=== PATIENT | female | born 1935 | race Caucasian/White ===

== ENCOUNTER 2017-10-14 08:01 | Day surgery (SDC) | payer MEDICARE, BC ==
--- NOTE | 2017-09-29 19:53 | HP ---
DATE OF ADMISSION: 10/14/2017 HISTORY OF PRESENT ILLNESS: This is the first orthopedic outpatient admission for surgery for this 82-year- old female who is being admitted with [id number] carpal tunnel syndrome of the right wrist. The patient has had a failed treatment with continued pain in the wrist, especially at nighttime, that disturbs her sleep. She has positive numbness and tingling and weakness of cat breeder of the right upper extremity. The patient is now being scheduled for right carpal tunnel release. Procedure has been outlined to her. She understands and has consented to it. ALLERGIES: Latex, erythromycin. CURRENT MEDICATIONS: Include thyroid, potassium, hydrochlorothiazide, Nexium, Zocor, meloxicam, and losartan. MEDICAL PROBLEMS: Include decreased thyroid function, increased cholesterol, high blood pressure, and heartburn. PAST SURGICAL HISTORY: Positive. She has had previous surgery. She notes no complications from anesthesia. The patient has a negative bleeding history. She has a positive blood clot history in the past, years ago. HABITS: Smoking history, she quit in 1977. Alcohol use, she says does not drink at this point. PHYSICAL EXAMINATION: GENERAL: Today reveals a well-developed, well-nourished 82-year-old female in moderate distress. HEAD, EYES, EARS, NOSE, AND THROAT: Normocephalic. NECK: Supple. CHEST: Clear, with asthma history. ABDOMEN: Soft. GENITOURINARY: Intact. EXTREMITIES: Examination of right wrist reveals positive pain on direct pressure of the carpal tunnel area. Severe Tinel examination noted. Positive thenar atrophy. DATA: Nerve conduction evaluation dated 09/08/2017, positive for [id number] carpal tunnel compressive neuropathy. ASSESSMENT: Overall impression is severe carpal tunnel syndrome, right wrist; failed treatment. PLAN: For the patient to undergo surgical treatment. Procedure has been outlined to her. She understands procedure, has consented to it. MMODAL /[id number] MTDD
[~2017-10-14 08:01] MED LIST: Lactated Ringers 1,000 ML IV SCH; Lidocaine 0.5% 50 ML SDV ONE; Lidocaine 1%/Sod Bicarbonate in NS 8.4% 1 ML Syringe IDERM PRN; Propofol 200 MG/20 ML SDV ONE; Sodium Bicarbonate 8.4% 50 MEQ/50 ML SDV ONE; Sodium Chloride 0.9% 10 ML Syringe FLUSH PRN; fentaNYL 100 MCG/2 ML SDV ONE
--- NOTE | 2017-10-14 08:28 | PCM.PREANE ---
Preanesthetic Assessment - Anesthesia/Transfusion/Family Hx Anesthesia History: Prior Anesthesia Without Reaction Family History of Anesthesia Reaction: No Transfusion History: No Prior Transfusion(s) - Review of Systems General: No Symptoms Pulmonary: No Symptoms Cardiovascular: No Symptoms Gastrointestinal: No Symptoms Neurological: Numbness (right hand) Other: Reports: Thyroid Problems - Physical Assessment NPO Status Date: 10/13/17 NPO Status Time: 00:00 Pulse: 62 O2 Sat by Pulse Oximetry: 98 Respiratory Rate: 16 Blood Pressure: 155/60 Temperature: 36.2 C Height: 1.55 m Weight: 68.719 kg ASA Class: 2 Mental Status: Alert & Oriented x3 Airway Class: Mallampati = 1 Dentition: Reports: Dentures, Partial, Caries Thyro-Mental Finger Breadths: 3 Mouth Opening Finger Breadths: 3 ROM/Head Extension: Full Lungs: Clear to Auscultation, Normal Respiratory Effort Cardiovascular: Regular Rate, Regular Rhythm, No Murmurs - Allergies Allergies/Adverse Reactions: Allergies Allergy/AdvReac Type Severity Reaction Status Date / Time azithromycin Allergy Hives Verified 10/13/17 10:33 latex Allergy Rash Verified 10/13/17 10:33 sulfanilamide Allergy Cannot Verified 10/13/17 10:33 Remember zuclopenthixol Allergy Cannot Verified 10/13/17 10:33 Remember erythromycin lactobionate AdvReac Nausea Verified 10/13/17 10:33 [From Erythrocin] - Blood Blood Available: No Product(s) Available: None - Anesthesia Plan Pre-Op Medication Ordered: None - Acknowledgements Anesthesia Type Planned: MILLA Pt an Appropriate Candidate for the Planned Anesthesia: Yes Alternatives and Risks of Anesthesia Discussed w Pt/Guardian: Yes Pt/Guardian Understands and Agrees with Anesthesia Plan: Yes PreAnesthesia Questionnaire HEENT History: Reports: Allergic Rhinitis, Cataract, Hard of Hearing, Sinusitis , Other (See Below) Other HEENT History: Cadidiasis of mouth, acute laryngitis, impacted cerumen, oral aphthae Cardiovascular History: Reports: High Cholesterol, Hypertension Respiratory History: Reports: PE, Other (See Below) Other Respiratory History: Acute respiratory infection Gastrointestinal History: Reports: Chronic Constipation, GERD Genitourinary History: Reports: Urinary Incontinence Other Genitourinary History: Hematuria, hypertonicity of bladder, overactive bladder 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: Musculoskeletal History: Reports: Other (See Below) Other Musculoskeletal History: DJD, shoulder pain, hammer toe Neurological History: Reports: Other (See Below) Other Neuro History: Spinal stenosis Psychiatric History: Reports: Other (See Below) Other Psychiatric History: Insomnia Endocrine/Metabolic History: Reports: Hypothyroidism, Osteoporosis Hematologic History: Reports: None Immunologic History: Reports: None Oncologic (Cancer) History: Reports: Colon, Other (See Below) Other Oncologic History: Malignant neoplasm of large intestine Dermatologic History: Reports: Other (See Below) Other Dermatologic History: Actinic keratosis, dermatophytosis of nail, rash, seborrheic keratosis - Past Surgical History Head Surgeries/Procedures: Reports: None HEENT Surgical History: Reports: Cataract Surgery Cardiovascular Surgical History: Reports: None Respiratory Surgical History: Reports: None GI Surgical History: Reports: Colonoscopy, Other (See Below) Other GI Surgeries/Procedures: bowel resection Female Surgical History: Reports: Hysterectomy Endocrine Surgical History: Reports: None Other Neurological Surgeries/Procedures: L4-5, S1 Laminectomy Musculoskeletal Surgical History: Reports: None Oncologic Surgical History: Reports: None Dermatological Surgical History: Reports: None - SUBSTANCE USE Smoking Status *Q: Former Smoker Second Hand Smoke Exposure: No Days Per Week of Alcohol Use: 0 Number of Drinks Per Day: 0 Total Drinks Per Week: 0 Recreational Drug Use History: No - HOME MEDS Home Medications: Home Meds Aspirin 81 mg PO DAILY 06/30/15 [History] Losartan [Cozaar] 50 mg PO DAILY 06/30/15 [History] Simvastatin [Zocor] 40 mg PO BEDTIME 06/30/15 [History] Albuterol Sulfate [Proair Respiclick] 2 puff IH Q4H PRN 10/13/17 [History] Amoxicillin/Clavulanate K [Augmentin 500-125 MG] 1 tab PO BID 10/13/17 [History] Docusate Sodium 100 mg PO BID 10/13/17 [History] Esomeprazole [NexIUM] 40 mg PO DAILY 10/13/17 [History] Fluticasone/Salmeterol [Advair 250-50 Diskus] 1 puff IH DAILY 10/13/17 [History] Hydrochlorothiazide 12.5 mg PO DAILY 10/13/17 [History] Ketoprofen, Micronized [Frotek] 1 applic TOP QID PRN 10/13/17 [History] Levothyroxine [Synthroid] 50 mcg PO DAILY 10/13/17 [History] Magnesium Oxide [Magnesium] 500 mg PO DAILY 10/13/17 [History] Meloxicam 7.5 mg PO DAILY 10/13/17 [History] Potassium Chloride 10 meq PO DAILY 10/13/17 [History] - CURRENT (IN HOUSE) MEDS Current Meds: Current Medications Lactated Ringer's (Ringers, Lactated) 1,000 mls @ 125 mls/hr IV ASDIRECTED CLARIBEL Lidocaine/Sodium Bicarbonate (Buffered Lidocaine 1% In Ns 8.4%) 0.25 ml IDERM ONETIME PRN PRN Reason: Prior to IV Start Sodium Chloride (Saline Flush) 10 ml FLUSH ASDIRECTED PRN PRN Reason: Keep Vein Open Discontinued Medications Fentanyl (Sublimaze) Confirm Administered Dose 100 mcg .ROUTE .STK-MED ONE Stop: 10/14/17 07:27 Lidocaine HCl (Xylocaine-Mpf 0.5%) Confirm Administered Dose 50 ml .ROUTE .STK- MED ONE Stop: 10/14/17 07:28 Propofol (Diprivan 20 Ml) Confirm Administered Dose 200 mg .ROUTE .STK-MED ONE Stop: 10/14/17 07:27 Sodium Bicarbonate (Sodium Bicarbonate 8.4%) Confirm Administered Dose 50 meq .ROUTE .STK-MED ONE Stop: 10/14/17 07:28
[2017-10-14] MEDS ORDERED: Acetaminophen/Codeine 300-30 MG Tab PO PRN (08:34)
[2017-10-14] MEDS ORDERED: ceFAZolin 1 GM Vial ONE (08:44)
[2017-10-14] MEDS ORDERED: Labetalol 100 MG/20 ML MDV ONE (08:58)
[2017-10-14] MEDS ORDERED: Dexamethasone 4 MG/ML 5 ML MDV ONE (09:15)
[2017-10-14] MEDS ORDERED: Ketorolac 30 MG/ML SDV IVPUSH PRN (09:39)
[2017-10-14] MEDS ORDERED: fentaNYL 250 MCG/5 ML SDV IVPUSH PRN (09:39)
--- NOTE | 2017-10-14 09:42 | PCM48HPAN ---
Post Anesthesia Note - EVALUATION WITHIN 48HRS OF ANESTHETIC Vital Signs in Normal Range: Yes Patient Participated in Evaluation: Yes Respiratory Function Stable: Yes Airway Patent: Yes Cardiovascular Function Stable: Yes Hydration Status Stable: Yes Pain Control Satisfactory: Yes (meds given) Nausea and Vomiting Control Satisfactory: Yes Mental Status Recovered: Yes Pulse Rate: 65 SaO2: 95 Resp Rate: 16 Temperature: 36.2 C Blood Pressure: 151/71 - COMMENTS/OBSERVATIONS Free Text/Narrative:: no anesthesia complications noted
[2017-10-14] MEDS ORDERED: fentaNYL 100 MCG/2 ML SDV ONE (09:51)
[2017-10-14 10:15] VITALS: BP 156/62
[2017-10-14] MEDS ORDERED: fentaNYL 100 MCG/2 ML SDV IVPUSH PRN (11:00)
--- NOTE | 2017-10-14 12:12 | OR ---
DATE OF OPERATION: 10/14/2017 SURGEON: Humble Justice MD PREOPERATIVE DIAGNOSIS: Severe carpal tunnel syndrome, right wrist, failed treatment. POSTOPERATIVE DIAGNOSIS: Severe carpal tunnel syndrome, right wrist, failed treatment. ANESTHESIA: Sedation with Linwood block. OPERATION PERFORMED: Right wrist carpal tunnel ligament release, exploration of median nerve. DESCRIPTION OF PROCEDURE: The patient was taken to the operative room in supine position, placed under a light sedation with a Linwood block anesthesia to the right upper extremity. After adequate anesthesia, the operation proceeded then with prepping and draping of the right hand and arm by standard technique and then the operation proceeded with exposure of the hand, the palmar area, and the incision was then lined up, paralleling the radial aspect of the ring finger, beginning approximately 1 cm distal to the flexion crease, extending for approximately 1-1.5 cm distally. Penetration was made through the skin and subcutaneous tissues, the palmar fascia was lightly incised to expose the carpal ligament. Once the carpal ligament was exposed, there was significant muscular tissue stretching across from the thenar to the hypothenar eminence over the top of the ligament structure area. This was lightly incised and reflected away from the main portion of the ligament. By direct visualization, the operation then proceeded with opening of the carpal ligament and doing this visually, proximally and distally. Once that was completed and this was performed, staying to the ulnar aspect of the median nerve, the operation then proceeded with completion of the release proximally to approximately 1 cm above the flexion crease using the carpal tunnel mini instrument. Once that release was completed, the median nerve could be visualized and inspected. The vasa vasorum returned quite nicely. There was significant compression at the base of the thumb, hypothenar eminence area, where a bruising of the nerve was identified and compression also was very noted with an hourglass type deformity. The operation proceeded with distal release down to the palmar fascia and into the palmar fat pad area. Once that was completed, the nerve was inspected from distal to proximal portion. No other fibrous bands were identified. The area was then thoroughly irrigated and again the compression as a result of the carpal tunnel ligament on the nerve was significant at the base of the thenar eminence. Operation proceeded with the closure of the skin using a horizontal mattress using 4-0 Prolene and then vertical mattress for reinforced 5-0 Prolene. The patient was placed in standard dressings and splint. She tolerated the whole procedure well, left the operating room in stable condition to room for recovery. ESTIMATED BLOOD LOSS: MMODAL /[id number]
== END 2017-10-14 10:40 | disposition home or self-care (01) ==
LOC: JD.SDS 08:01
PROVIDERS: ATTEND Specialist
DX: G56.01 Carpal tunnel syndrome, right upper limb (principal); I10 Essential (primary) hypertension; J45.30 Mild persistent asthma, uncomplicated; E78.00 Pure hypercholesterolemia, unspecified; K21.0 Gastro-esophageal reflux disease with esophagitis; Z87.891 Personal history of nicotine dependence; Z88.1 Allergy status to other antibiotic agents; Z91.040 Latex allergy status; Z79.899 Other long term (current) drug therapy; Z79.51 Long term (current) use of inhaled steroids
CPT/HCPCS: 64721; J0690; J1100; J1885; J3010; J7120; J2704

== ENCOUNTER 2020-04-05 11:49 | Inpatient (IN) | payer MEDICARE, BC ==
[2020-04-05] MEDS ORDERED: Dextrose 5%-0.9% NaCl 1,000 ML IV SCH (12:30)
--- NOTE | 2020-04-05 12:35 | EDM.PDOC ---
ED HPI GENERAL MEDICAL PROBLEM - General Chief Complaint: Respiratory Problem Stated Complaint: COUGH/FATIGUE/DIARRHEA Time Seen by Provider: 04/05/20 12:29 Source of Information: Reports: Patient History Limitations: Reports: No Limitations - History of Present Illness INITIAL COMMENTS - FREE TEXT/NARRATIVE: 85-year-old female presents to the ED not feeling well for the last 3 or 4 days. She is orthopneic and cannot lay flat for the last 2 nights. She is slept on the couch propped up with pillows or in her easy chair. O2 sats at the time presentation were 87%. She admits to cold sweats chills but no defined fever. Mild nasal congestion. She has maintained sense of taste and smell. Has developed a paroxysmal minimally productive cough over the last 48 hours. Diar dru stool x3 this morning. Loss of appetite. Complains of thirst and dyspnea and weakness. She lives in her own apartment. She has no known exposure to COVID-19 illness. Onset: Gradual Onset Date: 04/01/20 Duration: Day(s):, Getting Worse Location: Reports: Chest (Accessible minimally productive cough white sputum.), Generalized (Generalized weakness loss of appetite diarrhea stools), Other (Mild nasal congestion.) Quality: Reports: Other (Generalized myalgia and fatigue) Severity: Moderate Improves with: Reports: None Worsens with: Reports: Movement (Weakness made worse by movement.) Context: Denies: Activity, Exercise, Lifting, Sick Contact, Trauma, Other Associated Symptoms: Reports: Cough, cough w sputum, Diaphoresis, Fever/Chills, Loss of Appetite, Malaise, Shortness of Breath, Weakness, Other (Diarrhea started this morning x3 large volume brownish stools). Denies: No Other Symptoms, Confusion, Chest Pain (Sputum), Headaches, Nausea/Vomiting, Rash, Seizure, Syncope Treatments DEAN OF GIRLS: Reports: Other (see below) (None.) - Related Data Allergies Allergy/AdvReac Type Severity Reaction Status Date / Time azithromycin Allergy Hives Verified 04/05/20 12:03 latex Allergy Rash Verified 04/05/20 12:03 sulfanilamide Allergy Cannot Verified 04/05/20 12:03 Remember zuclopenthixol Allergy Cannot Verified 04/05/20 12:03 Remember erythromycin lactobionate AdvReac Nausea Verified 04/05/20 12:03 [From Erythrocin] Home Meds: Home Meds Aspirin 81 mg PO DAILY 06/30/15 [History] Losartan [Cozaar] 50 mg PO DAILY 06/30/15 [History] Simvastatin [Zocor] 40 mg PO BEDTIME 06/30/15 [History] Albuterol Sulfate [Proair Respiclick] 2 puff IH Q4H PRN 10/13/17 [History] Docusate Sodium 100 mg PO BID 10/13/17 [History] Esomeprazole [NexIUM] 40 mg PO DAILY 10/13/17 [History] Fluticasone Propion/Salmeterol [Advair 250-50 Diskus] 1 puff IH BID 10/13/17 [History] Levothyroxine [Synthroid] 50 mcg PO DAILY 10/13/17 [History] Meloxicam 7.5 mg PO DAILY 10/13/17 [History] Potassium Chloride 10 meq PO BID 10/13/17 [History] hydroCHLOROthiazide [Hydrochlorothiazide] 12.5 mg PO DAILY 10/13/17 [History] Diclofenac Sodium [Voltaren 1% Gel] 2 g TOP QID PRN 04/05/20 [History] Metoprolol Succinate 25 mg PO DAILY 04/05/20 [History] Multivitamin [Multivitamins] 1 cap PO DAILY 04/05/20 [History] Pregabalin 25 mg PO DAILY 04/05/20 [History] Pregabalin [Lyrica] 50 mg PO BEDTIME 04/05/20 [History] polyethylene glycoL 3350 [MiraLAX] 17 packet PO DAILY PRN 04/05/20 [History] Past Medical History HEENT History: Reports: Allergic Rhinitis, Cataract, Hard of Hearing, Sinusitis, Other (See Below) Other HEENT History: Cadidiasis of mouth, acute laryngitis, impacted cerumen, oral aphthae Cardiovascular History: Reports: High Cholesterol, Hypertension Respiratory History: Reports: PE, Other (See Below) Other Respiratory History: Acute respiratory infection Gastrointestinal History: Reports: Chronic Constipation, GERD Genitourinary History: Reports: Urinary Incontinence Other Genitourinary History: Hematuria, hypertonicity of bladder, overactive bladder 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: Reports: Musculoskeletal History: Reports: Other (See Below) Other Musculoskeletal History: DJD, shoulder pain, hammer toe Neurological History: Reports: Other (See Below) Other Neuro History: Spinal stenosis Psychiatric History: Reports: Other (See Below) Other Psychiatric History: Insomnia Endocrine/Metabolic History: Reports: Hypothyroidism, Osteoporosis Hematologic History: Reports: None Immunologic History: Reports: None Oncologic (Cancer) History: Reports: Colon, Other (See Below) Other Oncologic History: Malignant neoplasm of large intestine Dermatologic History: Reports: Other (See Below) Other Dermatologic History: Actinic keratosis, dermatophytosis of nail, rash, seborrheic keratosis - Past Surgical History HEENT Surgical History: Reports: Cataract Surgery Respiratory Surgical History: Reports: None GI Surgical History: Reports: Colonoscopy, Other (See Below) Other GI Surgeries/Procedures: bowel resection Female Surgical History: Reports: Hysterectomy Other Neurological Surgeries/Procedures: L4-5, S1 Laminectomy Dermatological Surgical History: Reports: None Social & Family History - Tobacco Use Tobacco Use Status *Q: Former Tobacco User Used Tobacco, but Quit: Yes Month/Year Tobacco Last Used: 1979 - Caffeine Use Caffeine Use: Reports: Coffee - Recreational Drug Use Recreational Drug Use: No - Living Situation & Occupation Living situation: Reports: Occupation: Retired ED ROS GENERAL - Review of Systems Review Of Systems: See Below Constitutional: Reports: Malaise, Weakness, Fatigue, Decreased Appetite. Denies: Fever, Chills HEENT: Reports: Glasses Respiratory: Reports: Shortness of Breath, Cough (Whitish sputum intermittent paroxysmal cough), Sputum. Denies: Wheezing, Pleuritic Chest Pain Cardiovascular: Reports: Blood Pressure Problem, Dyspnea on Exertion (He has a little bit of edema around her ankles.), Edema, Orthopnea (Developed over the last 2 days. She has had to sleep sitting up). Denies: Chest Pain, Claudication, Lightheadedness Endocrine: Reports: Fatigue GI/Abdominal: Reports: Diarrhea (Diarrhea stools x3 this morning brown large volume water loss), Decreased Appetite (Feels thirsty has not eaten much at all for the last 2 days.). Denies: Constipation, Nausea, Vomiting : Reports: Frequency, Incontinence (Continence usually urge and stress components.) Musculoskeletal: Reports: Back Pain, Joint Pain (Knees hips neck at times) Skin: Reports: No Symptoms Neurological: Reports: Dizziness, Difficulty Walking (Lysed weakness difficulty walking due to the weakness and shortness of breath), Weakness. Denies: Confusion, Headache, Numbness, Tingling Psychiatric: Reports: No Symptoms Hematologic/Lymphatic: Reports: No Symptoms Immunologic: Reports: No Symptoms ED EXAM, GENERAL - Physical Exam Exam: See Below Exam Limited By: No Limitations General Appearance: Alert, WD/WN, Mild Distress, Other (O2 sats are 87% on room air. Temperature is 36.2 heart rate 72 in sinus respiratory of 22 to 24/min BP 143/64) Eye Exam: Bilateral Eye: Normal Inspection (No scleral icterus or blepharal pallor.), PERRL Throat/Mouth: Other Head: Atraumatic (Is very dry and shrunken.), Normocephalic Neck: Normal Inspection, Supple, Limited Range of Motion (Loss of 10 degrees extension and 5 degrees flexion.). No: Carotid Bruit, Lymphadenopathy (L), Lymphadenopathy (R) ( Loss of 10 degrees lateral flexion bilaterally.), Thyromegaly Respiratory/Chest: No Accessory Muscle Use, Respiratory Distress (Tachypneic at rest at 22 to 24/min with O2 sats of 87 to 88% room air), Decreased Breath Sounds, Rales (Few fine rales both lung bases.). No: Lungs Clear, Normal Breath Sounds Cardiovascular: Regular Rate, Rhythm, No Edema, No Gallop, No Murmur, No Rub. No: Normal Peripheral Pulses (Air entry is decreased to the lower 25% lung brasher posteriorly.) Peripheral Pulses: 2+: Carotid (L), Carotid (R), Posterior Tibial (L), Posterior Tibial (R), Dorsalis Pedis (L), Dorsalis Pedis (R) GI/Abdominal: Normal Bowel Sounds, Soft, Non-Tender, No Organomegaly, No Abnormal Bruit, No Mass, Pelvis Stable, Other Back Exam: Decreased Range of Motion, Other (Mild kyphosis thoracic spine). No: CVA Tenderness (L) (Diffuse lower back pain on exam with decreased flexion), CVA Tenderness (R) Extremities: Non-Tender, Pedal Edema (Trace pedal edema feet and ankles), Other (And is of mild osteoarthritic changes both knees with limited external/internal rotation of both hips.) Neurological: Alert, Oriented, CN II-XII Intact, Normal Cognition Psychiatric: Normal Affect, Normal Mood Skin Exam: Warm, Dry, Intact, Normal Color, No Rash #1 Interpretation EKG Date: 04/05/20 Time: 12:17 Rhythm: NSR Rate (Beats/Min): 70 [place]: LAD-Left [place] Deviation (-11 degrees) P-Wave: Present QRS: Other (Early R wave transition consider right ventricular hypertrophy versus septal hypertrophy pattern. There is evidence of left ventricular hypertrophy pattern with tall R waves in lead I.) ST-T: Other (Nonspecific T wave flattening lead aVF.) QT: Normal EKG Interpretation Comments: Abnormal ECG Course - Vital Signs Last Recorded V/S: Last Vital Signs Temp 36.8 C 04/05/20 19:30 Pulse 72 04/05/20 19:30 Resp 20 04/05/20 19:30 BP 123/91 H 04/05/20 19:30 Pulse Ox 96 04/05/20 19:30 - Orders/Labs/Meds Orders: Active Orders 24 hr Category Date Time Status Oxygen Therapy [RC] ASDIRECTED Care 04/05/20 12:31 Active CULTURE BLOOD [BC] Stat Lab 04/05/20 12:55 Received CULTURE BLOOD [BC] Stat Lab 04/05/20 13:12 Received URINALYSIS W/MICROSCOPIC [UA W/MICROSCOPIC] [URIN] Stat Lab 04/05/20 12:31 Ordered Blood Culture x2 Reflex Set [OM.PC] Stat Oth 04/05/20 12:31 Ordered EKG 12 Lead [EK] Stat Ther 04/05/20 12:12 Ordered Medication Orders Acetaminophen (Tylenol) 650 mg PO Q4H PRN PRN Reason: Pain (Mild 1-3)/fever Albuterol (Proventil Neb Soln) 2.5 mg NEB Q2H PRN PRN Reason: Dyspnea Dexamethasone (Dexamethasone) 6 mg PO DAILY [facility] Stop: 04/14/20 09:01 Last Admin: 04/05/20 15:45 Dose: 6 mg Documented by: AMRIT Docusate Sodium (Colace) 100 mg PO BID PRN PRN Reason: Constipation Enoxaparin Sodium (Lovenox) 30 mg SUBCUT Q12H [facility] Last Admin: 04/05/20 15:45 Dose: 30 mg Documented by: AMRIT Ceftriaxone Sodium 2 gm/ (Sodium Chloride) 100 mls @ 200 mls/hr IV Q24H [facility] Stop: 04/09/20 15:44 Last Admin: 04/05/20 15:43 Dose: 200 mls/hr Documented by: AMRIT Remdesivir 100 mg/ Sodium (Chloride) 100 mls @ 100 mls/hr IV Q24H CLARIBEL Stop: 04/09/20 16:59 Sodium Chloride (Normal Saline) 250 mls @ 75 mls/hr IV ASDIRECTED CLARIBEL Ondansetron HCl (Zofran) 4 mg IV Q4H PRN PRN Reason: Nausea/Vomiting Sodium Chloride (Saline Flush) 10 ml FLUSH ASDIRECTED PRN PRN Reason: Keep Vein Open Labs: Laboratory Tests 04/05/20 04/05/20 04/05/20 Range/Units 12:25 13:00 13:12 WBC 10.00 (3.98-10.04) K/mm3 RBC 3.96 L (3.98-5.22) M/mm3 Hgb 12.5 (11.2-15.7) gm/dl Hct 37.2 (34.1-44.9) % MCV 93.9 (79.4-94.8) fl MCH 31.6 (25.6-32.2) pg MCHC 33.6 (32.2-35.5) g/dl RDW Std Deviation 46.1 (36.4-46.3) fL Plt Count 313 (182-369) K/mm3 MPV 8.9 L (9.4-12.3) fl Neut % (Auto) 90.2 H (34.0-71.1) % Lymph % (Auto) 5.3 L (19.3-51.7) % [place] % (Auto) 4.2 L (4.7-12.5) % Eos % (Auto) 0.2 L (0.7-5.8) Baso % (Auto) 0.1 (0.1-1.2) % Neut # (Auto) 9.02 H (1.56-6.13) K/mm3 Lymph # (Auto) 0.53 L (1.18-3.74) K/mm3 [place] # (Auto) 0.42 H (0.24-0.36) K/mm3 Eos # (Auto) 0.02 L (0.04-0.36) K/mm3 Baso # (Auto) 0.01 (0.01-0.08) K/mm3 Manual Slide Review Abnormal smear PT (9.7-12.0) SECONDS INR APTT (21.7-31.4) SECONDS D-Dimer, Quantitative (0.19-0.50) mg/L Puncture Site Rt radial ABG pH 7.44 (7.35-7.45) ABG pCO2 32.9 L (35.0-45.0) mmHg ABG pO2 58.0 L (80.0-100.0) mmHg ABG HCO3 21.8 L (22.0-26.0) meq/L ABG O2 Saturation 89.5 L (96.0-97.0) % ABG Base Excess -1.3 (-2-2.0) Nikunj Test Positive A-a Gradient 51 mmHg O2 Delivery Device Room air Oxygen Flow Rate 0.0 FiO2 21.00 (21.00-100.00) % Sodium (136-145) mEq/L Potassium (3.5-5.1) mEq/L Chloride (98-107) mEq/L Carbon Dioxide (21-32) mEq/L Anion Gap (5-15) BUN (7-18) mg/dL Creatinine (0.55-1.02) mg/dL Est Cr Clr Drug Dosing mL/min Estimated GFR (MDRD) (>60) mL/min BUN/Creatinine Ratio (14-18) Glucose (83-115) mg/dL Lactic Acid (0.4-2.0) mmol/L Calcium (8.5-10.1) mg/dL Magnesium (1.8-2.4) mg/dl Ferritin (8-252) ng/ml Total Bilirubin (0.2-1.0) mg/dL AST (15-37) U/L ALT (14-59) U/L Alkaline Phosphatase (46-116) U/L Lactate Dehydrogenase (81-234) U/L Troponin I (0.00-0.056) ng/mL C-Reactive Protein (<1.0) mg/dL NT-Pro-B Natriuret Pep (0-450) pg/mL Total Protein (6.4-8.2) g/dl Albumin (3.4-5.0) g/dl Globulin gm/dL Albumin/Globulin Ratio (1-2) SARS-CoV-2 RNA (CATHERINE) Positive H (NEGATIVE) Blood Type 04/05/20 04/05/20 04/05/20 Range/Units 13:12 13:12 13:12 WBC (3.98-10.04) K/mm3 RBC (3.98-5.22) M/mm3 Hgb (11.2-15.7) gm/dl Hct (34.1-44.9) % MCV (79.4-94.8) fl MCH (25.6-32.2) pg MCHC (32.2-35.5) g/dl RDW Std Deviation (36.4-46.3) fL Plt Count (182-369) K/mm3 MPV (9.4-12.3) fl Neut % (Auto) (34.0-71.1) % Lymph % (Auto) (19.3-51.7) % [place] % (Auto) (4.7-12.5) % Eos % (Auto) (0.7-5.8) Baso % (Auto) (0.1-1.2) % Neut # (Auto) (1.56-6.13) K/mm3 Lymph # (Auto) (1.18-3.74) K/mm3 [place] # (Auto) (0.24-0.36) K/mm3 Eos # (Auto) (0.04-0.36) K/mm3 Baso # (Auto) (0.01-0.08) K/mm3 Manual Slide Review PT 10.1 (9.7-12.0) SECONDS INR 0.94 APTT 24.9 (21.7-31.4) SECONDS D-Dimer, Quantitative 1.47 H (0.19-0.50) mg/L Puncture Site ABG pH (7.35-7.45) ABG pCO2 (35.0-45.0) mmHg ABG pO2 (80.0-100.0) mmHg ABG HCO3 (22.0-26.0) meq/L ABG O2 Saturation (96.0-97.0) % ABG Base Excess (-2-2.0) Nikunj Test A-a Gradient mmHg O2 Delivery Device Oxygen Flow Rate FiO2 (21.00-100.00) % Sodium 135 L D (136-145) mEq/L Potassium 3.9 (3.5-5.1) mEq/L Chloride 98 (98-107) mEq/L Carbon Dioxide 25 (21-32) mEq/L Anion Gap 15.9 H (5-15) BUN 14 (7-18) mg/dL Creatinine 0.9 (0.55-1.02) mg/dL Est Cr Clr Drug Dosing 33.86 mL/min Estimated GFR (MDRD) 59 (>60) mL/min BUN/Creatinine Ratio 15.6 (14-18) Glucose 91 (83-115) mg/dL Lactic Acid (0.4-2.0) mmol/L Calcium 9.6 (8.5-10.1) mg/dL Magnesium 2.1 (1.8-2.4) mg/dl Ferritin (8-252) ng/ml Total Bilirubin 0.5 (0.2-1.0) mg/dL AST 34 (15-37) U/L ALT 27 (14-59) U/L Alkaline Phosphatase 93 (46-116) U/L Lactate Dehydrogenase 363 H (81-234) U/L Troponin I < 0.017 (0.00-0.056) ng/mL C-Reactive Protein 23.4 H* (<1.0) mg/dL NT-Pro-B Natriuret Pep (0-450) pg/mL Total Protein 7.2 (6.4-8.2) g/dl Albumin 2.5 L (3.4-5.0) g/dl Globulin 4.7 gm/dL Albumin/Globulin Ratio 0.5 L (1-2) SARS-CoV-2 RNA (CATHERINE) (NEGATIVE) Blood Type 04/05/20 04/05/20 04/05/20 Range/Units 13:12 13:12 13:12 WBC (3.98-10.04) K/mm3 RBC (3.98-5.22) M/mm3 Hgb (11.2-15.7) gm/dl Hct (34.1-44.9) % MCV (79.4-94.8) fl MCH (25.6-32.2) pg MCHC (32.2-35.5) g/dl RDW Std Deviation (36.4-46.3) fL Plt Count (182-369) K/mm3 MPV (9.4-12.3) fl Neut % (Auto) (34.0-71.1) % Lymph % (Auto) (19.3-51.7) % [place] % (Auto) (4.7-12.5) % Eos % (Auto) (0.7-5.8) Baso % (Auto) (0.1-1.2) % Neut # (Auto) (1.56-6.13) K/mm3 Lymph # (Auto) (1.18-3.74) K/mm3 [place] # (Auto) (0.24-0.36) K/mm3 Eos # (Auto) (0.04-0.36) K/mm3 Baso # (Auto) (0.01-0.08) K/mm3 Manual Slide Review PT (9.7-12.0) SECONDS INR APTT (21.7-31.4) SECONDS D-Dimer, Quantitative (0.19-0.50) mg/L Puncture Site ABG pH (7.35-7.45) ABG pCO2 (35.0-45.0) mmHg ABG pO2 (80.0-100.0) mmHg ABG HCO3 (22.0-26.0) meq/L ABG O2 Saturation (96.0-97.0) % ABG Base Excess (-2-2.0) Nikunj Test A-a Gradient mmHg O2 Delivery Device Oxygen Flow Rate FiO2 (21.00-100.00) % Sodium (136-145) mEq/L Potassium (3.5-5.1) mEq/L Chloride (98-107) mEq/L Carbon Dioxide (21-32) mEq/L Anion Gap (5-15) BUN (7-18) mg/dL Creatinine (0.55-1.02) mg/dL Est Cr Clr Drug Dosing mL/min Estimated GFR (MDRD) (>60) mL/min BUN/Creatinine Ratio (14-18) Glucose (83-115) mg/dL Lactic Acid 1.1 (0.4-2.0) mmol/L Calcium (8.5-10.1) mg/dL Magnesium (1.8-2.4) mg/dl Ferritin 543 H (8-252) ng/ml Total Bilirubin (0.2-1.0) mg/dL AST (15-37) U/L ALT (14-59) U/L Alkaline Phosphatase (46-116) U/L Lactate Dehydrogenase (81-234) U/L Troponin I (0.00-0.056) ng/mL C-Reactive Protein (<1.0) mg/dL NT-Pro-B Natriuret Pep 998 H (0-450) pg/mL Total Protein (6.4-8.2) g/dl Albumin (3.4-5.0) g/dl Globulin gm/dL Albumin/Globulin Ratio (1-2) SARS-CoV-2 RNA (CATHERINE) (NEGATIVE) Blood Type 04/05/20 Range/Units 13:12 WBC (3.98-10.04) K/mm3 RBC (3.98-5.22) M/mm3 Hgb (11.2-15.7) gm/dl Hct (34.1-44.9) % MCV (79.4-94.8) fl MCH (25.6-32.2) pg MCHC (32.2-35.5) g/dl RDW Std Deviation (36.4-46.3) fL Plt Count (182-369) K/mm3 MPV (9.4-12.3) fl Neut % (Auto) (34.0-71.1) % Lymph % (Auto) (19.3-51.7) % [place] % (Auto) (4.7-12.5) % Eos % (Auto) (0.7-5.8) Baso % (Auto) (0.1-1.2) % Neut # (Auto) (1.56-6.13) K/mm3 Lymph # (Auto) (1.18-3.74) K/mm3 [place] # (Auto) (0.24-0.36) K/mm3 Eos # (Auto) (0.04-0.36) K/mm3 Baso # (Auto) (0.01-0.08) K/mm3 Manual Slide Review PT (9.7-12.0) SECONDS INR APTT (21.7-31.4) SECONDS D-Dimer, Quantitative (0.19-0.50) mg/L Puncture Site ABG pH (7.35-7.45) ABG pCO2 (35.0-45.0) mmHg ABG pO2 (80.0-100.0) mmHg ABG HCO3 (22.0-26.0) meq/L ABG O2 Saturation (96.0-97.0) % ABG Base Excess (-2-2.0) Nikunj Test A-a Gradient mmHg O2 Delivery Device Oxygen Flow Rate FiO2 (21.00-100.00) % Sodium (136-145) mEq/L Potassium (3.5-5.1) mEq/L Chloride (98-107) mEq/L Carbon Dioxide (21-32) mEq/L Anion Gap (5-15) BUN (7-18) mg/dL Creatinine (0.55-1.02) mg/dL Est Cr Clr Drug Dosing mL/min Estimated GFR (MDRD) (>60) mL/min BUN/Creatinine Ratio (14-18) Glucose (83-115) mg/dL Lactic Acid (0.4-2.0) mmol/L Calcium (8.5-10.1) mg/dL Magnesium (1.8-2.4) mg/dl Ferritin (8-252) ng/ml Total Bilirubin (0.2-1.0) mg/dL AST (15-37) U/L ALT (14-59) U/L Alkaline Phosphatase (46-116) U/L Lactate Dehydrogenase (81-234) U/L Troponin I (0.00-0.056) ng/mL C-Reactive Protein (<1.0) mg/dL NT-Pro-B Natriuret Pep (0-450) pg/mL Total Protein (6.4-8.2) g/dl Albumin (3.4-5.0) g/dl Globulin gm/dL Albumin/Globulin Ratio (1-2) SARS-CoV-2 RNA (CATHERINE) (NEGATIVE) Blood Type B NEGATIVE Meds: Medications Generic Name Dose Route Start Last Admin Trade Name Freq PRN Reason Stop Dose Admin Acetaminophen 650 mg 04/05/20 14:50 Tylenol PO Q4H PRN Pain (Mild 1-3)/fever Albuterol 2.5 mg 04/05/20 16:51 Proventil Neb Soln NEB Q2H PRN Dyspnea Dexamethasone 6 mg 04/05/20 15:15 04/05/20 15:45 Dexamethasone PO 04/14/20 09:01 6 mg DAILY CLARIBEL Administration Docusate Sodium 100 mg 04/05/20 14:50 Colace PO BID PRN Constipation Enoxaparin Sodium 30 mg 04/05/20 15:15 04/05/20 15:45 Lovenox SUBCUT 30 mg Q12H CLARIBEL Administration Ceftriaxone Sodium 2 gm/ 100 mls @ 200 mls/hr 04/05/20 15:15 04/05/20 15:43 Sodium Chloride IV 04/09/20 15:44 200 mls/hr Q24H CLARIBEL Administration Remdesivir 100 mg/ Sodium 100 mls @ 100 mls/hr 04/06/20 16:00 Chloride IV 04/09/20 16:59 Q24H CLARIBEL Sodium Chloride 250 mls @ 75 mls/hr 04/05/20 17:45 Normal Saline IV ASDIRECTED CLARIBEL Ondansetron HCl 4 mg 04/05/20 14:50 Zofran IV Q4H PRN Nausea/Vomiting Sodium Chloride 10 ml 04/05/20 14:50 Saline Flush FLUSH ASDIRECTED PRN Keep Vein Open Discontinued Medications Generic Name Dose Route Start Last Admin Trade Name Freq PRN Reason Stop Dose Admin Diphenhydramine HCl 25 mg 04/05/20 18:15 04/05/20 18:19 Benadryl IVPUSH 04/05/20 18:16 25 mg ONCALL ONE Administration Dextrose/Sodium Chloride 1,000 mls @ 100 mls/hr 04/05/20 12:30 04/05/20 13:06 Dextrose 5%-Normal Saline IV 100 mls/hr ASDIRECTED CLARIBEL Administration Remdesivir 200 mg/ Sodium 250 mls @ 250 mls/hr 04/05/20 16:00 04/05/20 16:28 Chloride IV 04/05/20 16:59 250 mls/hr ONETIME ONE Administration - Radiology Interpretation Free Text/Narrative:: 85-year-old female presents to the ED for evaluation of that of nasal congestion shortness of breath with orthopnea over the last 48 hours associated diaphoresis with no documented fever. Chills. Has developed a paroxysmal minimally productive cough of whitish sputum over the last 48 hours. Diarrhea stools started this morning. Loss of appetite over the last 2 to 3 days. No kn own exposure to COVID-19 but she has all the signs and symptoms. O2 sats at the time of admission to the ED were 87%. ABGs were obtained and she was started on 2 L of oxygen per nasal cannula to achieve sats of 95%. Plan coronavirus chest x-ray and routine labs to be done. She clinically is volume depleted but has crackles in both lung bases. There was started on normal saline at 100 mils per hour - Re-Assessments/Exams Free Text/Narrative Re-Assessment/Exam: 04/05/20 12:45 ABG's revealed a pH of 7.44 PCO2 of 32.9 and a PO2 of 58 on room air sats are 89.5% again on room air. Started on 2 L/min by nasal cannula 04/05/20: Portable chest x-ray reveals nonspecific bibasilar consolidation consistent with atelectasis edema or viral pneumonia. Pleural space unremarkable no pleural effusion no pneumothorax. No cardiomegaly. Vasculature demonstrates diffuse mild atherosclerotic calcification 04/05/20 14:46 White count is 10.0 with 90.2% neutrophils on the auto differential. Hemoglobin is 12.5 with hematocrit of 37.2. MCV is normal at 93.9. Platelet count 313,000. PT is 10.1 with an INR of 0.94 PTT is 24.9 D- dimer is mildly elevated at 1.47. Chemistry shows a sodium slightly low at 135 potassium normal at 3.9. Chloride 98 with a bicarb of 25. Anion gap is 15.9. BUN is 14 with a creatinine of 0.9. GFR is 59. Glucose is 91. Lactic acid is 1.1. Calcium is 9.6. Magnesium 2.1. Serum ferritin is elevated at 543. Liver function is normal lactic dehydrogenase is elevated at 363. Troponin I is less than 0.017. C-reactive protein is elevated at 23.4. BNP is elevated at 998. Total protein 7.2 with a low albumin fraction of 2.5. COVID-19 is positive. I will discussed the case with on-call hospitalist with a view to admission to the hospital. And is hypoxic on room air. She will require O2 supplementation and ideally begin treatment for COVID-19 illness. 04/05/20 14:53 I have discussed the findings with the patient and she concurs she is going to need to come in the hospital as she cannot look after herself at home and is too short of breath. She states she has severe fatigue and complete loss of appetite. She will be admitted to the hospital. Case discussed with Dr Hartley and Amanda Perry --PA whom will be doing the admission. Departure - Departure Time of Disposition: 16:00 Disposition: Admitted As Inpatient 65 Condition: Serious Clinical Impression: COVID-19 determined by clinical diagnostic criteria, Viral pneumonia, Hypoxia, Hyponatremia Congestive heart failure Qualifiers: Heart failure type: diastolic Heart failure chronicity: acute on chronic Qualified Code(s): I50.33 - Acute on chronic diastolic (congestive) heart failure - Discharge Information *PRESCRIPTION DRUG MONITORING PROGRAM REVIEWED*: Not Applicable *COPY OF PRESCRIPTION DRUG MONITORING REPORT IN PATIENT BLADIMIR: Not Applicable Sepsis Event Note (ED) - Evaluation Sepsis Screening Result: No Definite Risk - Focused Exam Vital Signs: Vital Signs Temp Pulse Resp BP Pulse Ox Pulse Ox 04/05/20 13:13 97 04/05/20 12:00 36.2 C 72 22 H 143/64 H 88 L - My Orders Last 24 Hours: My Active Orders 04/05/20 12:12 EKG 12 Lead [EK] Stat 04/05/20 12:31 Oxygen Therapy [RC] ASDIRECTED URINALYSIS W/MICROSCOPIC [UA W/MICROSCOPIC] [URIN] Stat Blood Culture x2 Reflex Set [OM.PC] Stat 04/05/20 12:55 CULTURE BLOOD [BC] Stat 04/05/20 13:12 CULTURE BLOOD [BC] Stat - Assessment/Plan Last 24 Hours: My Active Orders 04/05/20 12:12 EKG 12 Lead [EK] Stat 04/05/20 12:31 Oxygen Therapy [RC] ASDIRECTED URINALYSIS W/MICROSCOPIC [UA W/MICROSCOPIC] [URIN] Stat Blood Culture x2 Reflex Set [OM.PC] Stat 04/05/20 12:55 CULTURE BLOOD [BC] Stat 04/05/20 13:12 CULTURE BLOOD [BC] Stat
--- NOTE | 2020-04-05 14:08 | CR ---
PROCEDURE INFORMATION: Exam: XR Chest, 1 View Exam date and time: 04/05/2020 1:18 PM Age: 85 years old Clinical indication: Cough and dyspnea and other: Suspected chf and covid 19; Patient HX: Dyspnea with cough, suspect chf and covid 19 TECHNIQUE: Imaging protocol: XR of the chest Views: 1 view. COMPARISON: CT Chest wo Cont 03/01/2016 9:22 AM FINDINGS: Lungs: Nonspecific bibasilar consolidation is present, consistent with atelectasis, edema, or pneumonia. Pleural space: Unremarkable. No pleural effusion. No pneumothorax. Heart/Mediastinum: Unremarkable. No cardiomegaly. Vasculature: The vasculature demonstrates diffuse mild atherosclerotic calcification. Bones/joints: Unremarkable. IMPRESSION: Nonspecific bibasilar consolidation is present, consistent with atelectasis, edema, or pneumonia. Thank you for allowing us to participate in the care of your patient. Dictated and Authenticated by: Bruce Swartz DO 04/05/2020 3:04 PM Central Time ([place] & [place]) [facility]
[2020-04-05] MEDS ORDERED: Ondansetron 4 MG/2 ML SDV IV PRN (14:50)
[2020-04-05] MEDS ORDERED: Sodium Chloride 0.9% 10 ML Syringe FLUSH PRN (14:50)
[2020-04-05] MEDS ORDERED: Acetaminophen 325 MG Tab PO PRN (14:50)
[2020-04-05] MEDS ORDERED: Docusate Sodium 100 MG Cap PO PRN (14:50)
[2020-04-05] MEDS ORDERED: diphenhydrAMINE 50 MG/ML SDV IVPUSH ONE ×2 (15:04→18:15)
[2020-04-05] MEDS: cefTRIAXone 2 GM in Sodium Chloride 0.9% 100 ML IV SCH (15:43)
[2020-04-05] MEDS: Enoxaparin 30 MG/0.3 ML Syringe SUBCUT SCH (15:45)
[2020-04-05] MEDS: Dexamethasone 4 MG Tab PO SCH (15:45)
[2020-04-05] MEDS ORDERED: REMDESIVIR 200 MG in Sodium Chloride 0.9% 250 ML IV ONE (16:00)
--- NOTE | 2020-04-05 16:04 | PCM.HP.2 ---
H&P History of Present Illness - General Date of Service: 04/05/20 Admit Problem/Dx: Admission Diagnosis/Problem Admission Diagnosis/Problem Hypoxia Source of Information: Patient, Provider History Limitations: Reports: No Limitations - History of Present Illness Initial Comments - Free Text/Narative: 85-year-old female presents to the ED not feeling well for the last 3 or 4 days. She is orthopneic and cannot lay flat for the last 2 nights. She is slept on the couch propped up with pillows or in her easy chair. O2 sats at the time presentation were 87%. She admits to cold sweats chills but no defined fever. Mild nasal congestion. She has maintained sense of taste and smell. Has developed a paroxysmal minimally productive cough over the last 48 hours. Diarrhea stool x3 this morning. Loss of appetite. Complains of thirst and dyspnea and weakness. She lives in her own apartment. She has no known exposure to COVID-19 illness. - Related Data Allergies/Adverse Reactions: Allergies Allergy/AdvReac Type Severity Reaction Status Date / Time azithromycin Allergy Hives Verified 04/05/20 12:03 latex Allergy Rash Verified 04/05/20 12:03 sulfanilamide Allergy Cannot Verified 04/05/20 12:03 Remember zuclopenthixol Allergy Cannot Verified 04/05/20 12:03 Remember erythromycin lactobionate AdvReac Nausea Verified 04/05/20 12:03 [From Erythrocin] Home Medications: Home Meds Aspirin 81 mg PO DAILY 06/30/15 [History] Losartan [Cozaar] 50 mg PO DAILY 06/30/15 [History] Simvastatin [Zocor] 40 mg PO BEDTIME 06/30/15 [History] Albuterol Sulfate [Proair Respiclick] 2 puff IH Q4H PRN 10/13/17 [History] Docusate Sodium 100 mg PO BID 10/13/17 [History] Esomeprazole [NexIUM] 40 mg PO DAILY 10/13/17 [History] Fluticasone Propion/Salmeterol [Advair 250-50 Diskus] 1 puff IH DAILY 10/13/17 [History] Levothyroxine [Synthroid] 50 mcg PO DAILY 10/13/17 [History] Meloxicam 7.5 mg PO DAILY 10/13/17 [History] Potassium Chloride 10 meq PO DAILY 10/13/17 [History] hydroCHLOROthiazide [Hydrochlorothiazide] 12.5 mg PO DAILY 10/13/17 [History] Diclofenac Sodium [Voltaren 1% Gel] 2 g TOP QID PRN 04/05/20 [History] Metoprolol Succinate 25 mg PO DAILY 04/05/20 [History] Multivitamin [Multivitamins] 1 cap PO DAILY 04/05/20 [History] Pregabalin 25 mg PO DAILY 04/05/20 [History] Pregabalin [Lyrica] 50 mg PO BEDTIME 04/05/20 [History] polyethylene glycoL 3350 [MiraLAX] 17 packet PO DAILY 04/05/20 [History] Past Medical History HEENT History: Reports: Allergic Rhinitis, Cataract, Hard of Hearing, Sinusitis, Other (See Below) Other HEENT History: Cadidiasis of mouth, acute laryngitis, impacted cerumen, oral aphthae Cardiovascular History: Reports: High Cholesterol, Hypertension Respiratory History: Reports: PE, Other (See Below) Other Respiratory History: Acute respiratory infection Gastrointestinal History: Reports: Chronic Constipation, GERD Genitourinary History: Reports: Urinary Incontinence Other Genitourinary History: Hematuria, hypertonicity of bladder, overactive bladder [employer] History: Reports: Musculoskeletal History: Reports: Other (See Below) Other Musculoskeletal History: DJD, shoulder pain, hammer toe Neurological History: Reports: Other (See Below) Other Neuro History: Spinal stenosis Psychiatric History: Reports: Other (See Below) Other Psychiatric History: Insomnia Endocrine/Metabolic History: Reports: Hypothyroidism, Osteoporosis Hematologic History: Reports: None Immunologic History: Reports: None Oncologic (Cancer) History: Reports: Colon, Other (See Below) Other Oncologic History: Malignant neoplasm of large intestine Dermatologic History: Reports: Other (See Below) Other Dermatologic History: Actinic keratosis, dermatophytosis of nail, rash, seborrheic keratosis - Past Surgical History HEENT Surgical History: Reports: Cataract Surgery Respiratory Surgical History: Reports: None GI Surgical History: Reports: Colonoscopy, Other (See Below) Other GI Surgeries/Procedures: bowel resection Female Surgical History: Reports: Hysterectomy Other Neurological Surgeries/Procedures: L4-5, S1 Laminectomy Dermatological Surgical History: Reports: None Social & Family History - Tobacco Use Tobacco Use Status *Q: Former Tobacco User Used Tobacco, but Quit: Yes Month/Year Tobacco Last Used: 1979 - Caffeine Use Caffeine Use: Reports: Coffee - Recreational Drug Use Recreational Drug Use: No - Living Situation & Occupation Living situation: Reports: Occupation: Retired H&P Review of Systems - Review of Systems: Review Of Systems: See Below General: Reports: Chills, Malaise, Weakness, Night Sweats, Decreased Appetite HEENT: Reports: Headaches Pulmonary: Reports: Shortness of Breath, Cough. Denies: Wheezing, Pleuritic Chest Pain, Sputum Cardiovascular: Reports: Dyspnea on Exertion, Orthopnea. Denies: Chest Pain, Palpitations, Edema Gastrointestinal: Reports: Diarrhea (X3 today), Decreased Appetite. Denies: Nausea, Vomiting Genitourinary: Reports: Incontinence Musculoskeletal: Reports: No Symptoms Skin: Reports: No Symptoms Psychiatric: Reports: No Symptoms Neurological: Reports: No Symptoms Hematologic/Lymphatic: Reports: No Symptoms Immunologic: Reports: No Symptoms Exam - Exam Exam: See Below - Vital Signs Vital Signs: Last Vital Signs Temp 97.2 F 04/05/20 12:00 Pulse 72 04/05/20 12:00 Resp 22 H 04/05/20 12:00 BP 143/64 H 04/05/20 12:00 Pulse Ox 97 04/05/20 13:13 Weight: 150 lb - Exam Quality Assessment: Supplemental Oxygen (2 L per nasal cannula), DVT Prophylaxis (Lovenox) General: Alert, Oriented, Cooperative, Mild Distress HEENT: Conjunctiva Clear, EOMI, Hearing Intact, Mucosa Moist & Rainbow, Pupils Equal, Pupils Reactive Neck: Supple, Trachea Midline. No: Lymphadenopathy Lungs: Decreased Breath Sounds, Crackles Cardiovascular: Regular Rate, Regular Rhythm, Normal S1, Normal S2 GI/Abdominal Exam: Normal Bowel Sounds, Soft, Non-Tender, No Distention (Female) Exam: Deferred Rectal (Female) Exam: Deferred Back Exam: Normal Inspection, Full Range of Motion Extremities: Normal Inspection, Normal Range of Motion, Non-Tender, No Pedal Edema, Normal Capillary Refill Peripheral Pulses: 2+: Radial (L), Radial (R), Dorsalis Pedis (L), Dorsalis Pedis (R) Skin: Warm, Dry, Intact Neuro Extensive - Mental Status: Alert, Oriented x3, Normal Mood/Affect, Normal Cognition, Memory Intact Psychiatric: Alert, Normal Affect, Normal Mood - Patient Data Lab Results Last 24 hrs: Laboratory Results - last 24 hr 04/05/20 04/05/20 04/05/20 Range/Units 12:25 13:00 13:12 WBC 10.00 (3.98-10.04) K/mm3 RBC 3.96 L (3.98-5.22) M/mm3 Hgb 12.5 (11.2-15.7) gm/dl Hct 37.2 (34.1-44.9) % MCV 93.9 (79.4-94.8) fl MCH 31.6 (25.6-32.2) pg MCHC 33.6 (32.2-35.5) g/dl RDW Std Deviation 46.1 (36.4-46.3) fL Plt Count 313 (182-369) K/mm3 MPV 8.9 L (9.4-12.3) fl Neut % (Auto) 90.2 H (34.0-71.1) % Lymph % (Auto) 5.3 L (19.3-51.7) % [place] % (Auto) 4.2 L (4.7-12.5) % Eos % (Auto) 0.2 L (0.7-5.8) Baso % (Auto) 0.1 (0.1-1.2) % Neut # (Auto) 9.02 H (1.56-6.13) K/mm3 Lymph # (Auto) 0.53 L (1.18-3.74) K/mm3 [place] # (Auto) 0.42 H (0.24-0.36) K/mm3 Eos # (Auto) 0.02 L (0.04-0.36) K/mm3 Baso # (Auto) 0.01 (0.01-0.08) K/mm3 Manual Slide Review Abnormal smear PT (9.7-12.0) SECONDS INR APTT (21.7-31.4) SECONDS D-Dimer, Quantitative (0.19-0.50) mg/L Puncture Site Rt radial ABG pH 7.44 (7.35-7.45) ABG pCO2 32.9 L (35.0-45.0) mmHg ABG pO2 58.0 L (80.0-100.0) mmHg ABG HCO3 21.8 L (22.0-26.0) meq/L ABG O2 Saturation 89.5 L (96.0-97.0) % ABG Base Excess -1.3 (-2-2.0) Nikunj Test Positive A-a Gradient 51 mmHg O2 Delivery Device Room air Oxygen Flow Rate 0.0 FiO2 21.00 (21.00-100.00) % Sodium (136-145) mEq/L Potassium (3.5-5.1) mEq/L Chloride (98-107) mEq/L Carbon Dioxide (21-32) mEq/L Anion Gap (5-15) BUN (7-18) mg/dL Creatinine (0.55-1.02) mg/dL Est Cr Clr Drug Dosing mL/min Estimated GFR (MDRD) (>60) mL/min BUN/Creatinine Ratio (14-18) Glucose (83-115) mg/dL Lactic Acid (0.4-2.0) mmol/L Calcium (8.5-10.1) mg/dL Magnesium (1.8-2.4) mg/dl Ferritin (8-252) ng/ml Total Bilirubin (0.2-1.0) mg/dL AST (15-37) U/L ALT (14-59) U/L Alkaline Phosphatase (46-116) U/L Lactate Dehydrogenase (81-234) U/L Troponin I (0.00-0.056) ng/mL C-Reactive Protein (<1.0) mg/dL NT-Pro-B Natriuret Pep (0-450) pg/mL Total Protein (6.4-8.2) g/dl Albumin (3.4-5.0) g/dl Globulin gm/dL Albumin/Globulin Ratio (1-2) SARS-CoV-2 RNA (CATHERINE) Positive H (NEGATIVE) Blood Type 04/05/20 04/05/20 04/05/20 Range/Units 13:12 13:12 13:12 WBC (3.98-10.04) K/mm3 RBC (3.98-5.22) M/mm3 Hgb (11.2-15.7) gm/dl Hct (34.1-44.9) % MCV (79.4-94.8) fl MCH (25.6-32.2) pg MCHC (32.2-35.5) g/dl RDW Std Deviation (36.4-46.3) fL Plt Count (182-369) K/mm3 MPV (9.4-12.3) fl Neut % (Auto) (34.0-71.1) % Lymph % (Auto) (19.3-51.7) % [place] % (Auto) (4.7-12.5) % Eos % (Auto) (0.7-5.8) Baso % (Auto) (0.1-1.2) % Neut # (Auto) (1.56-6.13) K/mm3 Lymph # (Auto) (1.18-3.74) K/mm3 [place] # (Auto) (0.24-0.36) K/mm3 Eos # (Auto) (0.04-0.36) K/mm3 Baso # (Auto) (0.01-0.08) K/mm3 Manual Slide Review PT 10.1 (9.7-12.0) SECONDS INR 0.94 APTT 24.9 (21.7-31.4) SECONDS D-Dimer, Quantitative 1.47 H (0.19-0.50) mg/L Puncture Site ABG pH (7.35-7.45) ABG pCO2 (35.0-45.0) mmHg ABG pO2 (80.0-100.0) mmHg ABG HCO3 (22.0-26.0) meq/L ABG O2 Saturation (96.0-97.0) % ABG Base Excess (-2-2.0) Nikunj Test A-a Gradient mmHg O2 Delivery Device Oxygen Flow Rate FiO2 (21.00-100.00) % Sodium 135 L D (136-145) mEq/L Potassium 3.9 (3.5-5.1) mEq/L Chloride 98 (98-107) mEq/L Carbon Dioxide 25 (21-32) mEq/L Anion Gap 15.9 H (5-15) BUN 14 (7-18) mg/dL Creatinine 0.9 (0.55-1.02) mg/dL Est Cr Clr Drug Dosing 33.86 mL/min Estimated GFR (MDRD) 59 (>60) mL/min BUN/Creatinine Ratio 15.6 (14-18) Glucose 91 (83-115) mg/dL Lactic Acid (0.4-2.0) mmol/L Calcium 9.6 (8.5-10.1) mg/dL Magnesium 2.1 (1.8-2.4) mg/dl Ferritin (8-252) ng/ml Total Bilirubin 0.5 (0.2-1.0) mg/dL AST 34 (15-37) U/L ALT 27 (14-59) U/L Alkaline Phosphatase 93 (46-116) U/L Lactate Dehydrogenase 363 H (81-234) U/L Troponin I < 0.017 (0.00-0.056) ng/mL C-Reactive Protein 23.4 H* (<1.0) mg/dL NT-Pro-B Natriuret Pep (0-450) pg/mL Total Protein 7.2 (6.4-8.2) g/dl Albumin 2.5 L (3.4-5.0) g/dl Globulin 4.7 gm/dL Albumin/Globulin Ratio 0.5 L (1-2) SARS-CoV-2 RNA (CATHERINE) (NEGATIVE) Blood Type 04/05/20 04/05/20 04/05/20 Range/Units 13:12 13:12 13:12 WBC (3.98-10.04) K/mm3 RBC (3.98-5.22) M/mm3 Hgb (11.2-15.7) gm/dl Hct (34.1-44.9) % MCV (79.4-94.8) fl MCH (25.6-32.2) pg MCHC (32.2-35.5) g/dl RDW Std Deviation (36.4-46.3) fL Plt Count (182-369) K/mm3 MPV (9.4-12.3) fl Neut % (Auto) (34.0-71.1) % Lymph % (Auto) (19.3-51.7) % [place] % (Auto) (4.7-12.5) % Eos % (Auto) (0.7-5.8) Baso % (Auto) (0.1-1.2) % Neut # (Auto) (1.56-6.13) K/mm3 Lymph # (Auto) (1.18-3.74) K/mm3 [place] # (Auto) (0.24-0.36) K/mm3 Eos # (Auto) (0.04-0.36) K/mm3 Baso # (Auto) (0.01-0.08) K/mm3 Manual Slide Review PT (9.7-12.0) SECONDS INR APTT (21.7-31.4) SECONDS D-Dimer, Quantitative (0.19-0.50) mg/L Puncture Site ABG pH (7.35-7.45) ABG pCO2 (35.0-45.0) mmHg ABG pO2 (80.0-100.0) mmHg ABG HCO3 (22.0-26.0) meq/L ABG O2 Saturation (96.0-97.0) % ABG Base Excess (-2-2.0) Nikunj Test A-a Gradient mmHg O2 Delivery Device Oxygen Flow Rate FiO2 (21.00-100.00) % Sodium (136-145) mEq/L Potassium (3.5-5.1) mEq/L Chloride (98-107) mEq/L Carbon Dioxide (21-32) mEq/L Anion Gap (5-15) BUN (7-18) mg/dL Creatinine (0.55-1.02) mg/dL Est Cr Clr Drug Dosing mL/min Estimated GFR (MDRD) (>60) mL/min BUN/Creatinine Ratio (14-18) Glucose (83-115) mg/dL Lactic Acid 1.1 (0.4-2.0) mmol/L Calcium (8.5-10.1) mg/dL Magnesium (1.8-2.4) mg/dl Ferritin 543 H (8-252) ng/ml Total Bilirubin (0.2-1.0) mg/dL AST (15-37) U/L ALT (14-59) U/L Alkaline Phosphatase (46-116) U/L Lactate Dehydrogenase (81-234) U/L Troponin I (0.00-0.056) ng/mL C-Reactive Protein (<1.0) mg/dL NT-Pro-B Natriuret Pep 998 H (0-450) pg/mL Total Protein (6.4-8.2) g/dl Albumin (3.4-5.0) g/dl Globulin gm/dL Albumin/Globulin Ratio (1-2) SARS-CoV-2 RNA (CATHERINE) (NEGATIVE) Blood Type 04/05/20 Range/Units 13:12 WBC (3.98-10.04) K/mm3 RBC (3.98-5.22) M/mm3 Hgb (11.2-15.7) gm/dl Hct (34.1-44.9) % MCV (79.4-94.8) fl MCH (25.6-32.2) pg MCHC (32.2-35.5) g/dl RDW Std Deviation (36.4-46.3) fL Plt Count (182-369) K/mm3 MPV (9.4-12.3) fl Neut % (Auto) (34.0-71.1) % Lymph % (Auto) (19.3-51.7) % [place] % (Auto) (4.7-12.5) % Eos % (Auto) (0.7-5.8) Baso % (Auto) (0.1-1.2) % Neut # (Auto) (1.56-6.13) K/mm3 Lymph # (Auto) (1.18-3.74) K/mm3 [place] # (Auto) (0.24-0.36) K/mm3 Eos # (Auto) (0.04-0.36) K/mm3 Baso # (Auto) (0.01-0.08) K/mm3 Manual Slide Review PT (9.7-12.0) SECONDS INR APTT (21.7-31.4) SECONDS D-Dimer, Quantitative (0.19-0.50) mg/L Puncture Site ABG pH (7.35-7.45) ABG pCO2 (35.0-45.0) mmHg ABG pO2 (80.0-100.0) mmHg ABG HCO3 (22.0-26.0) meq/L ABG O2 Saturation (96.0-97.0) % ABG Base Excess (-2-2.0) Nikunj Test A-a Gradient mmHg O2 Delivery Device Oxygen Flow Rate FiO2 (21.00-100.00) % Sodium (136-145) mEq/L Potassium (3.5-5.1) mEq/L Chloride (98-107) mEq/L Carbon Dioxide (21-32) mEq/L Anion Gap (5-15) BUN (7-18) mg/dL Creatinine (0.55-1.02) mg/dL Est Cr Clr Drug Dosing mL/min Estimated GFR (MDRD) (>60) mL/min BUN/Creatinine Ratio (14-18) Glucose (83-115) mg/dL Lactic Acid (0.4-2.0) mmol/L Calcium (8.5-10.1) mg/dL Magnesium (1.8-2.4) mg/dl Ferritin (8-252) ng/ml Total Bilirubin (0.2-1.0) mg/dL AST (15-37) U/L ALT (14-59) U/L Alkaline Phosphatase (46-116) U/L Lactate Dehydrogenase (81-234) U/L Troponin I (0.00-0.056) ng/mL C-Reactive Protein (<1.0) mg/dL NT-Pro-B Natriuret Pep (0-450) pg/mL Total Protein (6.4-8.2) g/dl Albumin (3.4-5.0) g/dl Globulin gm/dL Albumin/Globulin Ratio (1-2) SARS-CoV-2 RNA (CATHERINE) (NEGATIVE) Blood Type B NEGATIVE Result Diagrams: 04/05/20 13:12 04/05/20 13:12 Sepsis Event Note - Evaluation Sepsis Screening Result: No Definite Risk - Focused Exam Vital Signs: Vital Signs Temp Pulse Resp BP Pulse Ox Pulse Ox 04/05/20 13:13 97 04/05/20 12:00 97.2 F 72 22 H 143/64 H 88 L - Problem List (1) Pneumonia due to 2019 novel coronavirus SNOMED Code(s): 968943205029557977 ICD Code: U07.1 - COVID-19; J12.89 - OTHER VIRAL PNEUMONIA Status: Acute Current Visit: Yes (2) Hypoxia SNOMED Code(s): 282137650 ICD Code: R09.02 - HYPOXEMIA Status: Acute Current Visit: Yes Problem List Initiated/Reviewed/Updated: Yes Orders Last 24hrs: Active Orders 24 hr Category Date Time Status Patient Status [ADT] Routine ADT 04/05/20 14:50 Active Cardiac Monitoring [RC] CONTINUOUS Care 04/05/20 14:51 Active Height and Weight [RC] 04 Care 04/05/20 14:50 Active Intake and Output [RC] 04,16 Care 04/05/20 14:51 Active Nurse Communication: Isolation [RC] ASDIRECTED Care 04/05/20 15:05 Active Oxygen Therapy [RC] ASDIRECTED Care 04/05/20 12:31 Active Oxygen Therapy [RC] PRN Care 04/05/20 14:50 Active Pulse Oximetry [RC] CONTINUOUS Care 04/05/20 14:52 Active RT Incentive Spirometry [RC] Q1HWA Care 04/05/20 14:50 Active Up With Assistance [RC] ASDIRECTED Care 04/05/20 14:50 Active VTE/DVT Education [RC] PER UNIT ROUTINE Care 04/05/20 14:50 Active Verify Patient Consent Obtain [RC] ASDIRECTED Care 04/05/20 15:05 Active Vital Signs [RC] Q4HR Care 04/05/20 14:50 Active Consult to Case Management/Awning Hanger [CONS] Cons 04/05/20 14:50 Active Routine Consult to Wire Stitcher Machine [CONS] Routine Cons 04/05/20 14:50 Active Consult to Spiritual Care [CONS] Routine Cons 04/05/20 14:50 Active OT Evaluation and Treatment [CONS] Routine Cons 04/05/20 14:50 Active PT Evaluation and Treatment [CONS] Routine Cons 04/05/20 14:50 Active Respiratory Care Assess and Treatment [CONS] Routine Cons 04/05/20 14:50 Active Regular Diet [DIET] Diet 04/05/20 Dinner Active ABO/RH TYPE [BBK] Routine Lab 04/05/20 13:12 Results C-REACTIVE PROTEIN [CHEM] DAILY Lab 04/06/20 05:11 Ordered C-REACTIVE PROTEIN [CHEM] DAILY Lab 04/07/20 05:11 Ordered C-REACTIVE PROTEIN [CHEM] DAILY Lab 04/08/20 05:11 Ordered C-REACTIVE PROTEIN [CHEM] DAILY Lab 04/09/20 05:11 Ordered C-REACTIVE PROTEIN [CHEM] DAILY Lab 04/10/20 05:11 Ordered CBC WITH AUTO DIFF [HEME] DAILY Lab 04/06/20 05:11 Ordered CBC WITH AUTO DIFF [HEME] DAILY Lab 04/07/20 05:11 Ordered CBC WITH AUTO DIFF [HEME] DAILY Lab 04/08/20 05:11 Ordered CBC WITH AUTO DIFF [HEME] DAILY Lab 04/09/20 05:11 Ordered CBC WITH AUTO DIFF [HEME] DAILY Lab 04/10/20 05:11 Ordered COMPREHENSIVE METABOLIC PN,CMP [CHEM] DAILY Lab 04/06/20 05:11 Ordered COMPREHENSIVE METABOLIC PN,CMP [CHEM] DAILY Lab 04/07/20 05:11 Ordered COMPREHENSIVE METABOLIC PN,CMP [CHEM] DAILY Lab 04/08/20 05:11 Ordered COMPREHENSIVE METABOLIC PN,CMP [CHEM] DAILY Lab 04/09/20 05:11 Ordered COMPREHENSIVE METABOLIC PN,CMP [CHEM] DAILY Lab 04/10/20 05:11 Ordered CULTURE BLOOD [BC] Stat Lab 04/05/20 12:55 Received CULTURE BLOOD [BC] Stat Lab 04/05/20 13:12 Received D-DIMER QUANTITATIVE [COAG] DAILY Lab 04/06/20 05:11 Ordered D-DIMER QUANTITATIVE [COAG] DAILY Lab 04/07/20 05:11 Ordered D-DIMER QUANTITATIVE [COAG] DAILY Lab 04/08/20 05:11 Ordered D-DIMER QUANTITATIVE [COAG] DAILY Lab 04/09/20 05:11 Ordered D-DIMER QUANTITATIVE [COAG] DAILY Lab 04/10/20 05:11 Ordered FRESH FROZEN PLASMA [BBK] Routine Lab 04/05/20 13:12 Results MAGNESIUM [CHEM] DAILY Lab 04/06/20 05:11 Ordered MAGNESIUM [CHEM] DAILY Lab 04/07/20 05:11 Ordered MAGNESIUM [CHEM] DAILY Lab 04/08/20 05:11 Ordered MAGNESIUM [CHEM] DAILY Lab 04/09/20 05:11 Ordered MAGNESIUM [CHEM] DAILY Lab 04/10/20 05:11 Ordered PHOSPHORUS [CHEM] DAILY Lab 04/06/20 05:11 Ordered PHOSPHORUS [CHEM] DAILY Lab 04/07/20 05:11 Ordered PHOSPHORUS [CHEM] DAILY Lab 04/08/20 05:11 Ordered PHOSPHORUS [CHEM] DAILY Lab 04/09/20 05:11 Ordered PHOSPHORUS [CHEM] DAILY Lab 04/10/20 05:11 Ordered PRO B-TYPE NATRIUR PEPT,BNPPRO [CHEM] DAILY Lab 04/06/20 05:11 Ordered PRO B-TYPE NATRIUR PEPT,BNPPRO [CHEM] DAILY Lab 04/07/20 05:11 Ordered PRO B-TYPE NATRIUR PEPT,BNPPRO [CHEM] DAILY Lab 04/08/20 05:11 Ordered PRO B-TYPE NATRIUR PEPT,BNPPRO [CHEM] DAILY Lab 04/09/20 05:11 Ordered PRO B-TYPE NATRIUR PEPT,BNPPRO [CHEM] DAILY Lab 04/10/20 05:11 Ordered PROCALCITONIN [REF] Stat Lab 04/05/20 15:04 Ordered URINALYSIS W/MICROSCOPIC [UA W/MICROSCOPIC] [URIN] Stat Lab 04/05/20 12:31 Ordered Acetaminophen [TylenoL] Med 04/05/20 14:50 Active 650 mg PO Q4H PRN Dextrose 5%-0.9% NaCl [Dextrose 5%-Normal Saline] 1,000 Med 04/05/20 12:30 Active ml IV ASDIRECTED Docusate Sodium [Colace] Med 04/05/20 14:50 Active 100 mg PO BID PRN Enoxaparin [Lovenox] Med 04/05/20 15:15 Active 30 mg SUBCUT Q12H Ondansetron [Zofran] Med 04/05/20 14:50 Active 4 mg IV Q4H PRN Remdesivir 100 mg Med 04/06/20 16:00 Active Sodium Chloride 0.9% [Normal Saline] 100 ml IV Q24H Remdesivir 200 mg Med 04/05/20 16:00 Active Sodium Chloride 0.9% [Normal Saline] 250 ml IV ONETIME Sodium Chloride 0.9% [Saline Flush] Med 04/05/20 14:50 Active 10 ml FLUSH ASDIRECTED PRN cefTRIAXone [Rocephin] 2 gm Med 04/05/20 15:15 Active Sodium Chloride 0.9% [Normal Saline] 100 ml IV Q24H dexAMETHasone Med 04/05/20 15:15 Active 6 mg PO DAILY Blood Culture x2 Reflex Set [OM.PC] Stat Oth 04/05/20 12:31 Ordered Isolation [COMM] Stat Oth 04/05/20 15:05 Ordered RT Acapella [RESPCARE] Routine Oth 04/05/20 14:50 Active Saline Lock Insert [OM.PC] Routine Oth 04/05/20 14:50 Ordered Transfuse Fresh Frozen Plasma [COMM] Routine Oth 04/05/20 15:05 Ordered EKG 12 Lead [EK] Stat Ther 04/05/20 12:12 Ordered Medication Orders Acetaminophen (Tylenol) 650 mg PO Q4H PRN PRN Reason: Pain (Mild 1-3)/fever Dexamethasone (Dexamethasone) 6 mg PO DAILY CLARIBEL Stop: 04/14/20 09:01 Last Admin: 04/05/20 15:45 Dose: 6 mg Documented by: AMRIT Docusate Sodium (Colace) 100 mg PO BID PRN PRN Reason: Constipation Enoxaparin Sodium (Lovenox) 30 mg SUBCUT Q12H [facility] Last Admin: 04/05/20 15:45 Dose: 30 mg Documented by: AMRIT Dextrose/Sodium Chloride (Dextrose 5%-Normal Saline) 1,000 mls @ 100 mls/hr IV ASDIRECTED [facility] Last Admin: 04/05/20 13:06 Dose: 100 mls/hr Documented by: EBONY Remdesivir 200 mg/ Sodium (Chloride) 250 mls @ 250 mls/hr IV ONETIME ONE Stop: 04/05/20 16:59 Ceftriaxone Sodium 2 gm/ (Sodium Chloride) 100 mls @ 200 mls/hr IV Q24H [facility] Stop: 04/09/20 15:44 Last Admin: 04/05/20 15:43 Dose: 200 mls/hr Documented by: AMRIT Remdesivir 100 mg/ Sodium (Chloride) 100 mls @ 100 mls/hr IV Q24H [facility] Stop: 04/09/20 16:59 Ondansetron HCl (Zofran) 4 mg IV Q4H PRN PRN Reason: Nausea/Vomiting Sodium Chloride (Saline Flush) 10 ml FLUSH ASDIRECTED PRN PRN Reason: Keep Vein Open Assessment/Plan Comment:: 04/05/20 * 85-year-old female with gradual onset of generalized malaise and not feeling well that started about 4 days ago. She states she developed a cough about 2 days ago. * Denies any known exposure to Covid. * O2 saturations when presenting to the emergency department were 87% on room air * Has had decreased appetite but still has her taste and smell. * Diarrhea that started today * Initial labs in the emergency department reveal a temp of 36.2 Celsius, pulse 72, respiratory rate 22, blood pressure 143/64, O2 sats are 97% on 2 L of oxygen per nasal cannula * Initial ABGs reveal a pH of 7.44, PCO2 of 32.9, and a PO2 of 58 on room air sats of 89.5% on room air. * Portable chest x-ray reveals nonspecific bibasilar consolidation consistent with atelectasis edema or viral pneumonia. Pleural space unremarkable no effusion no pneumothorax. No cardiomegaly. Vasculature demonstrates diffuse mild atherosclerotic calcification. * Labs reveal WBC is 10.0 with 90.2% neutrophils on the auto differential. Hemoglobin is 12.2 with a hematocrit of 37.2. MCV is normal at 93.9. Platelet count of 313, D-dimer 1.47, BUN is 14, creatinine 0.9, GFR 59, lactic acid is 1.1, mag is 2.1, serum ferritin is 543, LDH 363, troponin I is less than 0.017, CRP 23.4, BNP 998, COVID-19 is positive. PLAN: * Patient will be started on Rocephin 2 g IV every 24 hours x5 days. Patient will not be given a Zithromax as she is allergic to this however she cannot tell me what her reaction is. * Remdesivir 200 mg x 1 dose followed by 100 mg every 24 hours for total of 5 doses * Dexamethasone 6 mg daily x10 days * Patient has consented to receiving 2 units of convalescent plasma. I spoke with the patient to provide information about convalescent plasma for her. I offered her the fax sheet for patients and caregivers for COVID-19 convalescent plasma to read and review. I stated the therapy has been approved by an emergency use authorization process and has not been fully FDA reviewed or approved. I shared potential risks from the therapy including transmission of blood-borne pathogen such as HIV and hepatitis C, allergic and transfusion related reactions, post transfusion purpura. Additionally theoretical risks including a phenomenon called antibody dependent enhancement of infection such as spleen and dengue or attenuation of an immune response that may make patients more susceptible to reinfection. I discussed there are other potential treatment options that are currently not FDA approved to treat COVID-19. I offered opportunity to ask questions and all questions were answered. The patient voiced understanding and agreed to proceed with the treatment for herself. * Lovenox for DVT prophylaxis. * Patient is a full code. * RT to consult regarding titration of oxygen to keep sats greater than 90%. * Incentive spirometer and flutter valve every 1 hour while awake. * Vital signs every 4 hours * Strict intake and output and daily weight * PT/OT to eval and treat * services coordinator and case management for discharge planning * Dietitian to consult regarding caloric needs * Pastoral care * Albuterol nebulizer every 2 hours as needed for dyspnea or wheezing. * Patient will be here greater than 96 hours due to the treatment of Covid - Mortality Measure Prognosis:: Poor
[2020-04-05] MEDS ORDERED: Albuterol 0.083% 2.5 MG/3 ML Neb Soln NEB PRN (16:51)
[2020-04-05] MEDS ORDERED: Sodium Chloride 0.9% 250 ML IV SCH (17:45)
[2020-04-06] MEDS: Enoxaparin 30 MG/0.3 ML Syringe SUBCUT SCH ×2 (04:12→14:55)
[2020-04-06] MEDS: Dexamethasone 4 MG Tab PO SCH (09:11)
[2020-04-06] MEDS ORDERED: Albuterol 6.7 GM Inhaler INH PRN (12:45)
[2020-04-06] MEDS ORDERED: Polyethylene Glycol 3350 Powder 17 GM Packet PO PRN (12:45)
[2020-04-06] MEDS ORDERED: Diclofenac Sodium 1% Gel 100 GM Tube TOP PRN (12:45)
--- NOTE | 2020-04-06 12:49 | PCM.PN ---
- General Info Date of Service: 04/06/20 Admission Dx/Problem (Free Text): Admission Diagnosis/Problem Admission Diagnosis/Problem Hypoxia Subjective Update: Patient states that she is feeling well. Her appetite is poor. No bowel movement since admission. Functional Status: Reports: Pain Controlled - Review of Systems General: Reports: No Symptoms HEENT: Reports: No Symptoms Pulmonary: Reports: Shortness of Breath, Cough Cardiovascular: Reports: No Symptoms Gastrointestinal: Reports: No Symptoms Musculoskeletal: Reports: No Symptoms - Patient Data Vitals - Most Recent: Last Vital Signs Temp 98.1 F 04/06/20 12:06 Pulse 64 04/06/20 12:06 Resp 18 04/06/20 12:06 BP 114/59 L 04/06/20 12:06 Pulse Ox 96 04/06/20 12:06 Weight - Most Recent: 153 lb 14.4 oz I&O - Last 24 Hours: Intake & Output 04/05/20 04/06/20 04/06/20 22:59 06:59 14:59 Intake Total 921 200 100 Output Total 300 Balance 921 -100 100 Lab Results Last 24 Hours: Laboratory Results - last 24 hr 04/05/20 04/05/20 04/05/20 Range/Units 13:00 13:12 13:12 WBC 10.00 (3.98-10.04) K/mm3 RBC 3.96 L (3.98-5.22) M/mm3 Hgb 12.5 (11.2-15.7) gm/dl Hct 37.2 (34.1-44.9) % MCV 93.9 (79.4-94.8) fl MCH 31.6 (25.6-32.2) pg MCHC 33.6 (32.2-35.5) g/dl RDW Std Deviation 46.1 (36.4-46.3) fL Plt Count 313 (182-369) K/mm3 MPV 8.9 L (9.4-12.3) fl Neut % (Auto) 90.2 H (34.0-71.1) % Lymph % (Auto) 5.3 L (19.3-51.7) % [place] % (Auto) 4.2 L (4.7-12.5) % Eos % (Auto) 0.2 L (0.7-5.8) Baso % (Auto) 0.1 (0.1-1.2) % Neut # (Auto) 9.02 H (1.56-6.13) K/mm3 Lymph # (Auto) 0.53 L (1.18-3.74) K/mm3 [place] # (Auto) 0.42 H (0.24-0.36) K/mm3 Eos # (Auto) 0.02 L (0.04-0.36) K/mm3 Baso # (Auto) 0.01 (0.01-0.08) K/mm3 Manual Slide Review Abnormal smear PT 10.1 (9.7-12.0) SECONDS INR 0.94 APTT 24.9 (21.7-31.4) SECONDS D-Dimer, Quantitative (0.19-0.50) mg/L Sodium (136-145) mEq/L Potassium (3.5-5.1) mEq/L Chloride (98-107) mEq/L Carbon Dioxide (21-32) mEq/L Anion Gap (5-15) BUN (7-18) mg/dL Creatinine (0.55-1.02) mg/dL Est Cr Clr Drug Dosing mL/min Estimated GFR (MDRD) (>60) mL/min BUN/Creatinine Ratio (14-18) Glucose (83-115) mg/dL Lactic Acid (0.4-2.0) mmol/L Calcium (8.5-10.1) mg/dL Phosphorus (2.6-4.7) mg/dL Magnesium (1.8-2.4) mg/dl Ferritin (8-252) ng/ml Total Bilirubin (0.2-1.0) mg/dL AST (15-37) U/L ALT (14-59) U/L Alkaline Phosphatase (46-116) U/L Lactate Dehydrogenase (81-234) U/L Troponin I (0.00-0.056) ng/mL C-Reactive Protein (<1.0) mg/dL NT-Pro-B Natriuret Pep (0-450) pg/mL Total Protein (6.4-8.2) g/dl Albumin (3.4-5.0) g/dl Globulin gm/dL Albumin/Globulin Ratio (1-2) Procalcitonin (<0.10) ng/mL Urine Color (Yellow) Urine Appearance (Clear) Urine pH (5.0-8.0) Ur Specific [place] (1.005-1.030) Urine Protein (Negative) Urine Glucose (UA) (Negative) Urine Ketones (Negative) Urine Occult Blood (Negative) Urine Nitrite (Negative) Urine Bilirubin (Negative) Urine Urobilinogen (0.2-1.0) Ur Leukocyte Esterase (Negative) U Hyaline Cast (Auto) (0-5) /lpf Urine RBC (0-5) /hpf Urine WBC (0-5) /hpf Ur Squamous Epith Cells (0-5) /hpf Ur Transition Epith Cell (0-5) Ur Renal Epithelial Cell (0-5) /hpf Urine Bacteria (FEW) /hpf Urine Mucus (FEW) /hpf SARS-CoV-2 RNA ([facility]) Positive H (NEGATIVE) Blood Type 04/05/20 04/05/20 04/05/20 Range/Units 13:12 13:12 13:12 WBC (3.98-10.04) K/mm3 RBC (3.98-5.22) M/mm3 Hgb (11.2-15.7) gm/dl Hct (34.1-44.9) % MCV (79.4-94.8) fl MCH (25.6-32.2) pg MCHC (32.2-35.5) g/dl RDW Std Deviation (36.4-46.3) fL Plt Count (182-369) K/mm3 MPV (9.4-12.3) fl Neut % (Auto) (34.0-71.1) % Lymph % (Auto) (19.3-51.7) % [place] % (Auto) (4.7-12.5) % Eos % (Auto) (0.7-5.8) Baso % (Auto) (0.1-1.2) % Neut # (Auto) (1.56-6.13) K/mm3 Lymph # (Auto) (1.18-3.74) K/mm3 [place] # (Auto) (0.24-0.36) K/mm3 Eos # (Auto) (0.04-0.36) K/mm3 Baso # (Auto) (0.01-0.08) K/mm3 Manual Slide Review PT (9.7-12.0) SECONDS INR APTT (21.7-31.4) SECONDS D-Dimer, Quantitative 1.47 H (0.19-0.50) mg/L Sodium 135 L D (136-145) mEq/L Potassium 3.9 (3.5-5.1) mEq/L Chloride 98 (98-107) mEq/L Carbon Dioxide 25 (21-32) mEq/L Anion Gap 15.9 H (5-15) BUN 14 (7-18) mg/dL Creatinine 0.9 (0.55-1.02) mg/dL Est Cr Clr Drug Dosing 33.86 mL/min Estimated GFR (MDRD) 59 (>60) mL/min BUN/Creatinine Ratio 15.6 (14-18) Glucose 91 (83-115) mg/dL Lactic Acid (0.4-2.0) mmol/L Calcium 9.6 (8.5-10.1) mg/dL Phosphorus (2.6-4.7) mg/dL Magnesium 2.1 (1.8-2.4) mg/dl Ferritin (8-252) ng/ml Total Bilirubin 0.5 (0.2-1.0) mg/dL AST 34 (15-37) U/L ALT 27 (14-59) U/L Alkaline Phosphatase 93 (46-116) U/L Lactate Dehydrogenase 363 H (81-234) U/L Troponin I < 0.017 (0.00-0.056) ng/mL C-Reactive Protein 23.4 H* (<1.0) mg/dL NT-Pro-B Natriuret Pep 998 H (0-450) pg/mL Total Protein 7.2 (6.4-8.2) g/dl Albumin 2.5 L (3.4-5.0) g/dl Globulin 4.7 gm/dL Albumin/Globulin Ratio 0.5 L (1-2) Procalcitonin (<0.10) ng/mL Urine Color (Yellow) Urine Appearance (Clear) Urine pH (5.0-8.0) Ur Specific [place] (1.005-1.030) Urine Protein (Negative) Urine Glucose (UA) (Negative) Urine Ketones (Negative) Urine Occult Blood (Negative) Urine Nitrite (Negative) Urine Bilirubin (Negative) Urine Urobilinogen (0.2-1.0) Ur Leukocyte Esterase (Negative) U Hyaline Cast (Auto) (0-5) /lpf Urine RBC (0-5) /hpf Urine WBC (0-5) /hpf Ur Squamous Epith Cells (0-5) /hpf Ur Transition Epith Cell (0-5) Ur Renal Epithelial Cell (0-5) /hpf Urine Bacteria (FEW) /hpf Urine Mucus (FEW) /hpf SARS-CoV-2 RNA (CATHERINE) (NEGATIVE) Blood Type 04/05/20 04/05/20 04/05/20 Range/Units 13:12 13:12 13:12 WBC (3.98-10.04) K/mm3 RBC (3.98-5.22) M/mm3 Hgb (11.2-15.7) gm/dl Hct (34.1-44.9) % MCV (79.4-94.8) fl MCH (25.6-32.2) pg MCHC (32.2-35.5) g/dl RDW Std Deviation (36.4-46.3) fL Plt Count (182-369) K/mm3 MPV (9.4-12.3) fl Neut % (Auto) (34.0-71.1) % Lymph % (Auto) (19.3-51.7) % [place] % (Auto) (4.7-12.5) % Eos % (Auto) (0.7-5.8) Baso % (Auto) (0.1-1.2) % Neut # (Auto) (1.56-6.13) K/mm3 Lymph # (Auto) (1.18-3.74) K/mm3 [place] # (Auto) (0.24-0.36) K/mm3 Eos # (Auto) (0.04-0.36) K/mm3 Baso # (Auto) (0.01-0.08) K/mm3 Manual Slide Review PT (9.7-12.0) SECONDS INR APTT (21.7-31.4) SECONDS D-Dimer, Quantitative (0.19-0.50) mg/L Sodium (136-145) mEq/L Potassium (3.5-5.1) mEq/L Chloride (98-107) mEq/L Carbon Dioxide (21-32) mEq/L Anion Gap (5-15) BUN (7-18) mg/dL Creatinine (0.55-1.02) mg/dL Est Cr Clr Drug Dosing mL/min Estimated GFR (MDRD) (>60) mL/min BUN/Creatinine Ratio (14-18) Glucose (83-115) mg/dL Lactic Acid 1.1 (0.4-2.0) mmol/L Calcium (8.5-10.1) mg/dL Phosphorus (2.6-4.7) mg/dL Magnesium (1.8-2.4) mg/dl Ferritin 543 H (8-252) ng/ml Total Bilirubin (0.2-1.0) mg/dL AST (15-37) U/L ALT (14-59) U/L Alkaline Phosphatase (46-116) U/L Lactate Dehydrogenase (81-234) U/L Troponin I (0.00-0.056) ng/mL C-Reactive Protein (<1.0) mg/dL NT-Pro-B Natriuret Pep (0-450) pg/mL Total Protein (6.4-8.2) g/dl Albumin (3.4-5.0) g/dl Globulin gm/dL Albumin/Globulin Ratio (1-2) Procalcitonin 0.07 (<0.10) ng/mL Urine Color (Yellow) Urine Appearance (Clear) Urine pH (5.0-8.0) Ur Specific [place] (1.005-1.030) Urine Protein (Negative) Urine Glucose (UA) (Negative) Urine Ketones (Negative) Urine Occult Blood (Negative) Urine Nitrite (Negative) Urine Bilirubin (Negative) Urine Urobilinogen (0.2-1.0) Ur Leukocyte Esterase (Negative) U Hyaline Cast (Auto) (0-5) /lpf Urine RBC (0-5) /hpf Urine WBC (0-5) /hpf Ur Squamous Epith Cells (0-5) /hpf Ur Transition Epith Cell (0-5) Ur Renal Epithelial Cell (0-5) /hpf Urine Bacteria (FEW) /hpf Urine Mucus (FEW) /hpf SARS-CoV-2 RNA (CATHERINE) (NEGATIVE) Blood Type 04/05/20 04/06/20 04/06/20 Range/Units 13:12 01:10 05:40 WBC 5.16 (3.98-10.04) K/mm3 RBC 4.00 (3.98-5.22) M/mm3 Hgb 10.3 L D (11.2-15.7) gm/dl Hct 32.3 L (34.1-44.9) % MCV 80.8 D (79.4-94.8) fl MCH 25.8 (25.6-32.2) pg MCHC 31.9 L (32.2-35.5) g/dl RDW Std Deviation 44.6 (36.4-46.3) fL Plt Count 303 (182-369) K/mm3 MPV 8.4 L (9.4-12.3) fl Neut % (Auto) 74.5 H (34.0-71.1) % Lymph % (Auto) 17.2 L (19.3-51.7) % [place] % (Auto) 7.9 (4.7-12.5) % Eos % (Auto) 0.2 L (0.7-5.8) Baso % (Auto) 0.2 (0.1-1.2) % Neut # (Auto) 3.84 (1.56-6.13) K/mm3 Lymph # (Auto) 0.89 L (1.18-3.74) K/mm3 [place] # (Auto) 0.41 H (0.24-0.36) K/mm3 Eos # (Auto) 0.01 L (0.04-0.36) K/mm3 Baso # (Auto) 0.01 (0.01-0.08) K/mm3 Manual Slide Review PT (9.7-12.0) SECONDS INR APTT (21.7-31.4) SECONDS D-Dimer, Quantitative (0.19-0.50) mg/L Sodium (136-145) mEq/L Potassium (3.5-5.1) mEq/L Chloride (98-107) mEq/L Carbon Dioxide (21-32) mEq/L Anion Gap (5-15) BUN (7-18) mg/dL Creatinine (0.55-1.02) mg/dL Est Cr Clr Drug Dosing mL/min Estimated GFR (MDRD) (>60) mL/min BUN/Creatinine Ratio (14-18) Glucose (83-115) mg/dL Lactic Acid (0.4-2.0) mmol/L Calcium (8.5-10.1) mg/dL Phosphorus (2.6-4.7) mg/dL Magnesium (1.8-2.4) mg/dl Ferritin (8-252) ng/ml Total Bilirubin (0.2-1.0) mg/dL AST (15-37) U/L ALT (14-59) U/L Alkaline Phosphatase (46-116) U/L Lactate Dehydrogenase (81-234) U/L Troponin I (0.00-0.056) ng/mL C-Reactive Protein (<1.0) mg/dL NT-Pro-B Natriuret Pep (0-450) pg/mL Total Protein (6.4-8.2) g/dl Albumin (3.4-5.0) g/dl Globulin gm/dL Albumin/Globulin Ratio (1-2) Procalcitonin (<0.10) ng/mL Urine Color Yellow (Yellow) Urine Appearance Clear (Clear) Urine pH 6.5 (5.0-8.0) Ur Specific [place] 1.015 (1.005-1.030) Urine Protein Trace H (Negative) Urine Glucose (UA) Negative (Negative) Urine Ketones Negative (Negative) Urine Occult Blood Negative (Negative) Urine Nitrite Negative (Negative) Urine Bilirubin Negative (Negative) Urine Urobilinogen 0.2 (0.2-1.0) Ur Leukocyte Esterase Negative (Negative) U Hyaline Cast (Auto) 0-5 (0-5) /lpf Urine RBC Not seen (0-5) /hpf Urine WBC 0-5 (0-5) /hpf Ur Squamous Epith Cells 0-5 (0-5) /hpf Ur Transition Epith Cell 0-5 (0-5) Ur Renal Epithelial Cell 0-5 (0-5) /hpf Urine Bacteria Few (FEW) /hpf Urine Mucus Rare (FEW) /hpf SARS-CoV-2 RNA (CATHERINE) (NEGATIVE) Blood Type B NEGATIVE 04/06/20 04/06/20 04/06/20 Range/Units 05:40 05:40 05:40 WBC (3.98-10.04) K/mm3 RBC (3.98-5.22) M/mm3 Hgb (11.2-15.7) gm/dl Hct (34.1-44.9) % MCV (79.4-94.8) fl MCH (25.6-32.2) pg MCHC (32.2-35.5) g/dl RDW Std Deviation (36.4-46.3) fL Plt Count (182-369) K/mm3 MPV (9.4-12.3) fl Neut % (Auto) (34.0-71.1) % Lymph % (Auto) (19.3-51.7) % [place] % (Auto) (4.7-12.5) % Eos % (Auto) (0.7-5.8) Baso % (Auto) (0.1-1.2) % Neut # (Auto) (1.56-6.13) K/mm3 Lymph # (Auto) (1.18-3.74) K/mm3 [place] # (Auto) (0.24-0.36) K/mm3 Eos # (Auto) (0.04-0.36) K/mm3 Baso # (Auto) (0.01-0.08) K/mm3 Manual Slide Review PT (9.7-12.0) SECONDS INR APTT (21.7-31.4) SECONDS D-Dimer, Quantitative 1.17 H (0.19-0.50) mg/L Sodium 140 (136-145) mEq/L Potassium 3.9 (3.5-5.1) mEq/L Chloride 102 (98-107) mEq/L Carbon Dioxide 27 (21-32) mEq/L Anion Gap 14.9 (5-15) BUN 19 H (7-18) mg/dL Creatinine 0.9 (0.55-1.02) mg/dL Est Cr Clr Drug Dosing 33.86 mL/min Estimated GFR (MDRD) 59 (>60) mL/min BUN/Creatinine Ratio 21.1 H (14-18) Glucose 176 H (83-115) mg/dL Lactic Acid (0.4-2.0) mmol/L Calcium 9.3 (8.5-10.1) mg/dL Phosphorus 3.1 (2.6-4.7) mg/dL Magnesium 1.8 (1.8-2.4) mg/dl Ferritin (8-252) ng/ml Total Bilirubin 0.4 (0.2-1.0) mg/dL AST 29 (15-37) U/L ALT 32 (14-59) U/L Alkaline Phosphatase 78 (46-116) U/L Lactate Dehydrogenase (81-234) U/L Troponin I (0.00-0.056) ng/mL C-Reactive Protein 9.7 H* (<1.0) mg/dL NT-Pro-B Natriuret Pep 1577 H (0-450) pg/mL Total Protein 6.7 (6.4-8.2) g/dl Albumin 2.6 L (3.4-5.0) g/dl Globulin 4.1 gm/dL Albumin/Globulin Ratio 0.6 L (1-2) Procalcitonin (<0.10) ng/mL Urine Color (Yellow) Urine Appearance (Clear) Urine pH (5.0-8.0) Ur Specific [place] (1.005-1.030) Urine Protein (Negative) Urine Glucose (UA) (Negative) Urine Ketones (Negative) Urine Occult Blood (Negative) Urine Nitrite (Negative) Urine Bilirubin (Negative) Urine Urobilinogen (0.2-1.0) Ur Leukocyte Esterase (Negative) U Hyaline Cast (Auto) (0-5) /lpf Urine RBC (0-5) /hpf Urine WBC (0-5) /hpf Ur Squamous Epith Cells (0-5) /hpf Ur Transition Epith Cell (0-5) Ur Renal Epithelial Cell (0-5) /hpf Urine Bacteria (FEW) /hpf Urine Mucus (FEW) /hpf SARS-CoV-2 RNA (CATHERINE) (NEGATIVE) Blood Type Med Orders - Current: Current Medications Acetaminophen (Tylenol) 650 mg PO Q4H PRN PRN Reason: Pain (Mild 1-3)/fever Albuterol (Proventil Neb Soln) 2.5 mg NEB Q2H PRN PRN Reason: Dyspnea Aspirin (Aspirin) 81 mg PO DAILY [facility] Dexamethasone (Dexamethasone) 6 mg PO DAILY [facility] Stop: 04/14/20 09:01 Last Admin: 04/06/20 09:11 Dose: 6 mg Documented by: Diclofenac Sodium (Voltaren 1% Gel) 2 gm TOP QID PRN PRN Reason: Pain Docusate Sodium (Colace) 100 mg PO BID PRN PRN Reason: Constipation Docusate Sodium (Colace) 100 mg PO BID [facility] Enoxaparin Sodium (Lovenox) 30 mg SUBCUT Q12H [facility] Last Admin: 04/06/20 04:12 Dose: 30 mg Documented by: Ceftriaxone Sodium 2 gm/ (Sodium Chloride) 100 mls @ 200 mls/hr IV Q24H [facility] Stop: 04/09/20 15:44 Last Admin: 04/05/20 15:43 Dose: 200 mls/hr Documented by: Remdesivir 100 mg/ Sodium (Chloride) 100 mls @ 100 mls/hr IV Q24H [facility] Stop: 04/09/20 16:59 Sodium Chloride (Normal Saline) 250 mls @ 75 mls/hr IV ASDIRECTED [facility] Levothyroxine Sodium (Synthroid) 50 mcg PO DAILY [facility] Metoprolol Succinate (Toprol Xl) 25 mg PO DAILY [facility] Non-Formulary Medication (Albuterol Sulfate [Proair Respiclick]) 2 puff IH Q4H PRN PRN Reason: Shortness of Breath Non-Formulary Medication (Esomeprazole [Nexium]) 40 mg PO DAILY [facility] Non-Formulary Medication (Fluticasone Propion/Salmeterol) 1 puff IH BID [facility] Non-Formulary Medication (Hydrochlorothiazide [Hydrochlorothiazide]) 12.5 mg PO DAILY [facility] Non-Formulary Medication (Losartan) 50 mg PO DAILY [facility] Non-Formulary Medication (Pregabalin) 50 mg PO BEDTIME [facility] Ondansetron HCl (Zofran) 4 mg IV Q4H PRN PRN Reason: Nausea/Vomiting Polyethylene Glycol (Miralax) gm PO DAILY PRN PRN Reason: Constipation Pregabalin (Lyrica) 25 mg PO DAILY [facility] Simvastatin (Zocor) 40 mg PO BEDTIME [facility] Sodium Chloride (Saline Flush) 10 ml FLUSH ASDIRECTED PRN PRN Reason: Keep Vein Open Discontinued Medications Diphenhydramine HCl (Benadryl) 25 mg IVPUSH ONCALL ONE Stop: 04/05/20 18:16 Last Admin: 04/05/20 18:19 Dose: 25 mg Documented by: Dextrose/Sodium Chloride (Dextrose 5%-Normal Saline) 1,000 mls @ 100 mls/hr IV ASDIRECTED [facility] Last Admin: 04/05/20 13:06 Dose: 100 mls/hr Documented by: Remdesivir 200 mg/ Sodium (Chloride) 250 mls @ 250 mls/hr IV ONETIME ONE Stop: 04/05/20 16:59 Last Admin: 04/05/20 16:28 Dose: 250 mls/hr Documented by: - Exam Quality Assessment: Supplemental Oxygen General: Alert, Oriented HEENT: Pupils Equal, Mucous Membr. Moist/[place] Neck: Supple Lungs: Rales (Bibasilar). No: Normal Respiratory Effort (Increased respiratory rate and effort) Cardiovascular: Regular Rate, Regular Rhythm GI/Abdominal Exam: Normal Bowel Sounds, Soft, Non-Tender, No Distention, No Abnormal Bruit Extremities: Normal Inspection, Normal Capillary Refill Skin: Warm, Dry, Intact Psy/Mental Status: Alert, Normal Affect, Normal Mood Sepsis Event Note - Evaluation Sepsis Screening Result: No Definite Risk - Focused Exam Vital Signs: Vital Signs Temp Pulse Resp BP Pulse Ox Pulse Ox 04/06/20 12:06 98.1 F 64 18 114/59 L 96 04/06/20 09:22 95 04/06/20 08:10 97.2 F 56 L 18 158/62 H 95 04/06/20 04:18 97.2 F 54 L 18 135/97 H 94 L 04/06/20 01:16 97.3 F 56 L 20 143/67 H 97 - Problem List & Annotations (1) COVID-19 determined by clinical diagnostic criteria SNOMED Code(s): 975670618, 810758122 Code(s): U07.1 - COVID-19 Status: Acute Current Visit: Yes (2) Congestive heart failure SNOMED Code(s): 48329165 Code(s): I50.9 - HEART FAILURE, UNSPECIFIED Status: Acute Current Visit: Yes Qualifiers: Heart failure type: diastolic Heart failure chronicity: acute on chronic Qualified Code(s): I50.33 - Acute on chronic diastolic (congestive) heart failure (3) Hypoxia SNOMED Code(s): 978773065 Code(s): R09.02 - HYPOXEMIA Status: Acute Current Visit: Yes (4) Pneumonia due to 2019 novel coronavirus SNOMED Code(s): 449183094044416640 Code(s): U07.1 - COVID-19; J12.89 - OTHER VIRAL PNEUMONIA Status: Acute Current Visit: Yes - Problem List Review Problem List Initiated/Reviewed/Updated: Yes - My Orders Last 24 Hours: My Active Orders 04/06/20 12:45 Diclofenac Sodium [Voltaren 1% Gel] 2 gm TOP QID PRN polyethylene glycoL 3350 [MiraLAX] 17 packet PO DAILY PRN 04/06/20 12:45 Albuterol Sulfate [Proair Respiclick] 2 puff IH Q4H PRN 04/06/20 13:00 Losartan 50 mg PO DAILY 04/06/20 21:00 Docusate Sodium [Colace] 100 mg PO BID Fluticasone Propion/Salmeterol 1 puff IH BID Pregabalin 50 mg PO BEDTIME Simvastatin [Zocor] 40 mg PO BEDTIME 04/07/20 09:00 Aspirin 81 mg PO DAILY Esomeprazole [NexIUM] 40 mg PO DAILY Levothyroxine [Synthroid] 50 mcg PO DAILY Metoprolol Succinate [Toprol XL] 25 mg PO DAILY Pregabalin [Lyrica] 25 mg PO DAILY hydroCHLOROthiazide [Hydrochlorothiazide] 12.5 mg PO DAILY - Plan Plan:: 04/05/20 * 85-year-old female with gradual onset of generalized malaise and not feeling well that started about 4 days ago. She states she developed a cough about 2 days ago. * Denies any known exposure to Covid. * O2 saturations when presenting to the emergency department were 87% on room air * Has had decreased appetite but still has her taste and smell. * Diarrhea that started today * Initial labs in the emergency department reveal a temp of 36.2 Celsius, pulse 72, respiratory rate 22, blood pressure 143/64, O2 sats are 97% on 2 L of oxygen per nasal cannula * Initial ABGs reveal a pH of 7.44, PCO2 of 32.9, and a PO2 of 58 on room air sats of 89.5% on room air. * Portable chest x-ray reveals nonspecific bibasilar consolidation consistent with atelectasis edema or viral pneumonia. Pleural space unremarkable no effusion no pneumothorax. No cardiomegaly. Vasculature demonstrates diffuse mild atherosclerotic calcification. * Labs reveal WBC is 10.0 with 90.2% neutrophils on the auto differential. Hemoglobin is 12.2 with a hematocrit of 37.2. MCV is normal at 93.9. Platelet count of 313, D-dimer 1.47, BUN is 14, creatinine 0.9, GFR 59, lactic acid is 1.1, mag is 2.1, serum ferritin is 543, LDH 363, troponin I is less than 0.017, CRP 23.4, BNP 998, COVID-19 is positive. 04/05/2020 * Stable on 2 L nasal cannula. * On Rocephin, remdesivir, and dexamethasone. * Allergy to Zithromax. * Appetite is only marginal. * D-dimer 1.17, CRP 9.7, albumin 2.6, white count 5.17 * GFR 59 and creatinine of 0.9 PLAN: * Continue on Rocephin 2 g IV every 24 hours x5 days. * Remdesivir 200 mg x 1 dose followed by 100 mg every 24 hours for total of 5 doses * Dexamethasone 6 mg daily x10 days * Lovenox for DVT prophylaxis. * Patient is a full code. * RT following * Incentive spirometer and flutter valve every 1 hour while awake. * Vital signs every 4 hours * Strict intake and output and daily weight * PT/OT to eval and treat * manager office services and case management for discharge planning * Dietitian to consult regarding caloric needs * Pastoral care * Albuterol nebulizer every 2 hours as needed for dyspnea or wheezing. * Length of stay greater than 96 hours due to the treatment of Covid
[2020-04-06] MEDS ORDERED: Pantoprazole 40 MG Tab.CR PO ONE (13:58)
[2020-04-06] MEDS: Losartan 25 MG Tab PO SCH (14:54)
[2020-04-06] MEDS: cefTRIAXone 2 GM in Sodium Chloride 0.9% 100 ML IV SCH (14:56)
[2020-04-06] MEDS: REMDESIVIR 100 MG in Sodium Chloride 0.9% 100 ML IV SCH (16:32)
[2020-04-06] MEDS: Formoterol/Mometasone 200-5 MCG 8.8 GM Inhaler IH SCH (21:16)
[2020-04-06] MEDS: Docusate Sodium 100 MG Cap PO SCH (21:29)
[2020-04-06] MEDS: Pregabalin 25 MG Cap PO SCH (21:29)
[2020-04-06] MEDS: Simvastatin 40 MG Tab PO SCH (21:29)
[2020-04-07] MEDS: Enoxaparin 30 MG/0.3 ML Syringe SUBCUT SCH ×2 (03:57→14:31)
[2020-04-07] MEDS: Levothyroxine 50 MCG Tab PO SCH (05:54)
[2020-04-07] MEDS: Pantoprazole 40 MG Tab.CR PO SCH (05:55)
[2020-04-07] MEDS: Formoterol/Mometasone 200-5 MCG 8.8 GM Inhaler IH SCH ×2 (08:39→20:23)
[2020-04-07] MEDS: Docusate Sodium 100 MG Cap PO SCH ×2 (09:35→21:04)
[2020-04-07] MEDS: Hydrochlorothiazide 12.5 MG Cap PO SCH (09:35)
[2020-04-07] MEDS: Aspirin 81 MG Tab.EC PO SCH (09:35)
[2020-04-07] MEDS: Losartan 25 MG Tab PO SCH (09:35)
[2020-04-07] MEDS: Pregabalin 25 MG Cap PO SCH ×2 (09:35→21:04)
[2020-04-07] MEDS: Metoprolol Succinate 25 MG Tab.ER PO SCH (09:35)
[2020-04-07] MEDS: Dexamethasone 4 MG Tab PO SCH (09:36)
--- NOTE | 2020-04-07 12:02 | PCM.PN ---
- General Info Date of Service: 04/07/20 Admission Dx/Problem (Free Text): Admission Diagnosis/Problem Admission Diagnosis/Problem Hypoxia Subjective Update: States she is feeling well other than when she takes a deep breath. Needs very strong encouragement to use incentive spirometer and flutter valve. Functional Status: Reports: Pain Controlled, Tolerating Diet, Ambulating (With physical therapy), Urinating, Incentive Spirometry (Needs strong encouragement) - Review of Systems General: Reports: No Symptoms HEENT: Reports: Glasses Pulmonary: Reports: Shortness of Breath, Cough, Wheezing. Denies: Sputum Cardiovascular: Reports: Dyspnea on Exertion. Denies: Chest Pain, Palpitations, Edema Gastrointestinal: Reports: No Symptoms. Denies: Diarrhea, Nausea Genitourinary: Reports: No Symptoms Musculoskeletal: Reports: No Symptoms Skin: Reports: No Symptoms Neurological: Reports: No Symptoms Psychiatric: Reports: No Symptoms - Patient Data Vitals - Most Recent: Last Vital Signs Temp 97.2 F 04/07/20 08:22 Pulse 63 04/07/20 09:35 Resp 16 04/07/20 08:22 BP 147/96 H 04/07/20 09:35 Pulse Ox 92 L 04/07/20 08:41 Weight - Most Recent: 154 lb 12.8 oz I&O - Last 24 Hours: Intake & Output 04/06/20 04/07/20 04/07/20 22:59 06:59 14:59 Intake Total 920 600 Output Total 400 400 Balance 520 200 Lab Results Last 24 Hours: Laboratory Results - last 24 hr 04/07/20 04/07/20 04/07/20 Range/Units 05:46 05:46 05:46 WBC 9.99 (3.98-10.04) K/mm3 RBC 3.53 L (3.98-5.22) M/mm3 Hgb 11.0 L (11.2-15.7) gm/dl Hct 32.9 L (34.1-44.9) % MCV 93.2 D (79.4-94.8) fl MCH 31.2 (25.6-32.2) pg MCHC 33.4 (32.2-35.5) g/dl RDW Std Deviation 45.1 (36.4-46.3) fL Plt Count 370 H (182-369) K/mm3 MPV 8.9 L (9.4-12.3) fl Neut % (Auto) 87.0 H (34.0-71.1) % Lymph % (Auto) 6.6 L (19.3-51.7) % [place] % (Auto) 6.3 (4.7-12.5) % Eos % (Auto) 0 L (0.7-5.8) Baso % (Auto) 0.1 (0.1-1.2) % Neut # (Auto) 8.69 H (1.56-6.13) K/mm3 Lymph # (Auto) 0.66 L (1.18-3.74) K/mm3 [place] # (Auto) 0.63 H (0.24-0.36) K/mm3 Eos # (Auto) 0.00 L (0.04-0.36) K/mm3 Baso # (Auto) 0.01 (0.01-0.08) K/mm3 Manual Slide Review Abnormal smear D-Dimer, Quantitative 1.61 H (0.19-0.50) mg/L Sodium 136 (136-145) mEq/L Potassium 3.9 (3.5-5.1) mEq/L Chloride 102 (98-107) mEq/L Carbon Dioxide 23 (21-32) mEq/L Anion Gap 14.9 (5-15) BUN 21 H (7-18) mg/dL Creatinine 0.9 (0.55-1.02) mg/dL Est Cr Clr Drug Dosing 33.86 mL/min Estimated GFR (MDRD) 59 (>60) mL/min BUN/Creatinine Ratio 23.3 H (14-18) Glucose 162 H (83-115) mg/dL Calcium 8.7 (8.5-10.1) mg/dL Phosphorus 2.8 (2.6-4.7) mg/dL Magnesium 2.0 (1.8-2.4) mg/dl Total Bilirubin 0.2 (0.2-1.0) mg/dL AST 36 (15-37) U/L ALT 39 (14-59) U/L Alkaline Phosphatase 71 (46-116) U/L C-Reactive Protein 11.7 H* (<1.0) mg/dL NT-Pro-B Natriuret Pep (0-450) pg/mL Total Protein 5.8 L (6.4-8.2) g/dl Albumin 1.9 L (3.4-5.0) g/dl Globulin 3.9 gm/dL Albumin/Globulin Ratio 0.5 L (1-2) 04/07/20 Range/Units 05:46 WBC (3.98-10.04) K/mm3 RBC (3.98-5.22) M/mm3 Hgb (11.2-15.7) gm/dl Hct (34.1-44.9) % MCV (79.4-94.8) fl MCH (25.6-32.2) pg MCHC (32.2-35.5) g/dl RDW Std Deviation (36.4-46.3) fL Plt Count (182-369) K/mm3 MPV (9.4-12.3) fl Neut % (Auto) (34.0-71.1) % Lymph % (Auto) (19.3-51.7) % [place] % (Auto) (4.7-12.5) % Eos % (Auto) (0.7-5.8) Baso % (Auto) (0.1-1.2) % Neut # (Auto) (1.56-6.13) K/mm3 Lymph # (Auto) (1.18-3.74) K/mm3 [place] # (Auto) (0.24-0.36) K/mm3 Eos # (Auto) (0.04-0.36) K/mm3 Baso # (Auto) (0.01-0.08) K/mm3 Manual Slide Review D-Dimer, Quantitative (0.19-0.50) mg/L Sodium (136-145) mEq/L Potassium (3.5-5.1) mEq/L Chloride (98-107) mEq/L Carbon Dioxide (21-32) mEq/L Anion Gap (5-15) BUN (7-18) mg/dL Creatinine (0.55-1.02) mg/dL Est Cr Clr Drug Dosing mL/min Estimated GFR (MDRD) (>60) mL/min BUN/Creatinine Ratio (14-18) Glucose (83-115) mg/dL Calcium (8.5-10.1) mg/dL Phosphorus (2.6-4.7) mg/dL Magnesium (1.8-2.4) mg/dl Total Bilirubin (0.2-1.0) mg/dL AST (15-37) U/L ALT (14-59) U/L Alkaline Phosphatase (46-116) U/L C-Reactive Protein (<1.0) mg/dL NT-Pro-B Natriuret Pep 1230 H (0-450) pg/mL Total Protein (6.4-8.2) g/dl Albumin (3.4-5.0) g/dl Globulin gm/dL Albumin/Globulin Ratio (1-2) Mason Results Last 24 Hours: Microbiology 04/05/20 12:55 Aerobic Blood Culture - Preliminary Blood - Venous NO GROWTH AFTER 1 DAY Anaerobic Blood Culture - Preliminary NO GROWTH AFTER 1 DAY 04/05/20 13:12 Aerobic Blood Culture - Preliminary Blood - Venous - Lab Draw NO GROWTH AFTER 1 DAY Anaerobic Blood Culture - Preliminary NO GROWTH AFTER 1 DAY Med Orders - Current: Current Medications Acetaminophen (Tylenol) 650 mg PO Q4H PRN PRN Reason: Pain (Mild 1-3)/fever Albuterol (Proventil Neb Soln) 2.5 mg NEB Q2H PRN PRN Reason: Dyspnea Albuterol (Proventil Hfa) 0 gm INH Q4H PRN PRN Reason: Shortness of Breath Aspirin (Halfprin) 81 mg PO DAILY [facility] Last Admin: 04/07/20 09:35 Dose: 81 mg Documented by: Dexamethasone (Dexamethasone) 6 mg PO DAILY [facility] Stop: 04/14/20 09:01 Last Admin: 04/07/20 09:36 Dose: 6 mg Documented by: Diclofenac Sodium (Voltaren 1% Gel) 2 gm TOP QID PRN PRN Reason: Pain Docusate Sodium (Colace) 100 mg PO BID PRN PRN Reason: Constipation Docusate Sodium (Colace) 100 mg PO BID [facility] Last Admin: 04/07/20 09:35 Dose: 100 mg Documented by: Enoxaparin Sodium (Lovenox) 30 mg SUBCUT Q12H [facility] Last Admin: 04/07/20 03:57 Dose: 30 mg Documented by: Hydrochlorothiazide (Hydrochlorothiazide) 12.5 mg PO DAILY [facility] Last Admin: 04/07/20 09:35 Dose: 12.5 mg Documented by: Ceftriaxone Sodium 2 gm/ (Sodium Chloride) 100 mls @ 200 mls/hr IV Q24H [facility] Stop: 04/09/20 15:44 Last Admin: 04/06/20 14:56 Dose: 200 mls/hr Documented by: Remdesivir 100 mg/ Sodium (Chloride) 100 mls @ 100 mls/hr IV Q24H [facility] Stop: 04/09/20 16:59 Last Admin: 04/06/20 16:32 Dose: 100 mls/hr Documented by: Insulin Human Lispro (Humalog) 0 unit SUBCUT QIDACANDBED [facility]; Protocol Levothyroxine Sodium (Synthroid) [address] [facility] Last Admin: 04/07/20 05:54 Dose: 50 mcg Documented by: Losartan Potassium (Cozaar) 50 mg PO DAILY [facility] Last Admin: 04/07/20 09:35 Dose: 50 mg Documented by: Metoprolol Succinate (Toprol Xl) 25 mg PO DAILY [facility] Last Admin: 04/07/20 09:35 Dose: 25 mg Documented by: Mometasone Furoate/Formoterol Fumar (Dulera 200-5 Mcg) 2 puff IH BID [facility] Last Admin: 04/07/20 08:39 Dose: 2 puff Documented by: Ondansetron HCl (Zofran) 4 mg IV Q4H PRN PRN Reason: Nausea/Vomiting Pantoprazole Sodium (Protonix) [address] [facility] Last Admin: 04/07/20 05:55 Dose: 40 mg Documented by: Polyethylene Glycol (Miralax) 17 gm PO DAILY PRN PRN Reason: Constipation Pregabalin (Lyrica) 50 mg PO BEDTIME [facility] Last Admin: 04/06/20 21:29 Dose: Not Given Documented by: Pregabalin (Lyrica) 25 mg PO DAILY [facility] Last Admin: 04/07/20 09:35 Dose: 25 mg Documented by: Simvastatin (Zocor) 40 mg PO BEDTIME [facility] Last Admin: 04/06/20 21:29 Dose: 40 mg Documented by: Sodium Chloride (Saline Flush) 10 ml FLUSH ASDIRECTED PRN PRN Reason: Keep Vein Open Discontinued Medications Diphenhydramine HCl (Benadryl) 25 mg IVPUSH ONCALL ONE Stop: 04/05/20 18:16 Last Admin: 04/05/20 18:19 Dose: 25 mg Documented by: Dextrose/Sodium Chloride (Dextrose 5%-Normal Saline) 1,000 mls @ 100 mls/hr IV ASDIRECTED [facility] Last Admin: 04/05/20 13:06 Dose: 100 mls/hr Documented by: Remdesivir 200 mg/ Sodium (Chloride) 250 mls @ 250 mls/hr IV ONETIME ONE Stop: 04/05/20 16:59 Last Admin: 04/05/20 16:28 Dose: 250 mls/hr Documented by: Sodium Chloride (Normal Saline) 250 mls @ 75 mls/hr IV ASDIRECTED [facility] Pantoprazole Sodium (Protonix) 40 mg PO DAILY ONE Stop: 04/06/20 13:59 Last Admin: 04/06/20 14:55 Dose: 40 mg Documented by: - Exam Quality Assessment: Supplemental Oxygen (2 L per nasal cannula), DVT Prophylaxis (Lovenox) General: Alert, Oriented, Cooperative, No Acute Distress HEENT: Pupils Equal, Pupils Reactive, Mucous Membr. Moist/Roundup Neck: Supple, Trachea Midline. No: Lymphadenopathy Lungs: Normal Respiratory Effort, Decreased Breath Sounds, Crackles, Wheezing Cardiovascular: Regular Rate, Regular Rhythm. No: No Murmurs GI/Abdominal Exam: Normal Bowel Sounds, Soft, Non-Tender, No Distention (Female) Exam: Deferred Back Exam: Normal Inspection, Full Range of Motion Extremities: Normal Inspection, Normal Range of Motion, Non-Tender, No Pedal Edema, Normal Capillary Refill Peripheral Pulses: 2+: Radial (L), Radial (R), Dorsalis Pedis (L), Dorsalis Pedis (R) Skin: Warm, Dry, Intact Neurological: No New Focal Deficit Psy/Mental Status: Alert, Normal Affect, Normal Mood Sepsis Event Note - Evaluation Sepsis Screening Result: No Definite Risk - Focused Exam Vital Signs: Vital Signs Temp Pulse Resp BP Pulse Ox Pulse Ox 04/07/20 09:35 63 147/96 H 04/07/20 08:41 92 L 04/07/20 08:22 97.2 F 63 16 147/96 H 94 L 04/07/20 03:48 97.5 F 61 18 137/69 93 L 04/07/20 00:11 97.5 F 59 L 20 130/65 93 L - Problem List & Annotations (1) Pneumonia due to 2019 novel coronavirus SNOMED Code(s): 259000604403849139 Code(s): U07.1 - COVID-19; J12.89 - OTHER VIRAL PNEUMONIA Status: Acute Current Visit: Yes (2) Hypoxia SNOMED Code(s): 803157204 Code(s): R09.02 - HYPOXEMIA Status: Acute Current Visit: Yes - Problem List Review Problem List Initiated/Reviewed/Updated: Yes - My Orders Last 24 Hours: My Active Orders 04/06/20 16:00 Remdesivir 100 mg Sodium Chloride 0.9% [Normal Saline] 100 ml IV Q24H 04/07/20 11:59 Blood Glucose Check, Bedside [RC] QIDACANDBED 04/07/20 12:00 GLYCOSYLATED HEMOGLOBIN,HGBA1C [CHEM] Stat 04/07/20 17:00 Insulin Lispro [HumaLOG] See Protocol SUBCUT QIDACANDBED 04/08/20 05:11 C-REACTIVE PROTEIN [CHEM] DAILY CBC WITH AUTO DIFF [HEME] DAILY COMPREHENSIVE METABOLIC PN,CMP [CHEM] DAILY D-DIMER QUANTITATIVE [COAG] DAILY MAGNESIUM [CHEM] DAILY PHOSPHORUS [CHEM] DAILY PRO B-TYPE NATRIUR PEPT,BNPPRO [CHEM] DAILY 04/09/20 05:11 C-REACTIVE PROTEIN [CHEM] DAILY CBC WITH AUTO DIFF [HEME] DAILY COMPREHENSIVE METABOLIC PN,CMP [CHEM] DAILY D-DIMER QUANTITATIVE [COAG] DAILY MAGNESIUM [CHEM] DAILY PHOSPHORUS [CHEM] DAILY PRO B-TYPE NATRIUR PEPT,BNPPRO [CHEM] DAILY 04/10/20 05:11 C-REACTIVE PROTEIN [CHEM] DAILY CBC WITH AUTO DIFF [HEME] DAILY COMPREHENSIVE METABOLIC PN,CMP [CHEM] DAILY D-DIMER QUANTITATIVE [COAG] DAILY MAGNESIUM [CHEM] DAILY PHOSPHORUS [CHEM] DAILY PRO B-TYPE NATRIUR PEPT,BNPPRO [CHEM] DAILY - Assessment Assessment:: 04/06/2020 * Stable on 2 L nasal cannula. * On Rocephin, remdesivir, and dexamethasone. * Allergy to Zithromax. * Appetite is only marginal. * D-dimer 1.17, CRP 9.7, albumin 2.6, white count 5.17 * GFR 59 and creatinine of 0.9 04/07/20 * Continues on oxygen at 2 L per nasal cannula * States she feels well other than coughing with deep breathing * Needs encouragement to use incentive spirometer and flutter valve * Appetite is fair * Labs reveal: WBC 9.99, D-dimer 1.61, BUN 21, creatinine 0.9, GFR 59, blood glucose range 91-176, C-reactive protein 11.7, proBNP 1230 * Continues on Rocephin, remdesivir, and dexamethasone. - Plan Plan:: 04/05/20 * 85-year-old female with gradual onset of generalized malaise and not feeling well that started about 4 days ago. She states she developed a cough about 2 days ago. * Denies any known exposure to Covid. * O2 saturations when presenting to the emergency department were 87% on room air * Has had decreased appetite but still has her taste and smell. * Diarrhea that started today * Initial labs in the emergency department reveal a temp of 36.2 Celsius, pulse 72, respiratory rate 22, blood pressure 143/64, O2 sats are 97% on 2 L of oxygen per nasal cannula * Initial ABGs reveal a pH of 7.44, PCO2 of 32.9, and a PO2 of 58 on room air sats of 89.5% on room air. * Portable chest x-ray reveals nonspecific bibasilar consolidation consistent with atelectasis edema or viral pneumonia. Pleural space unremarkable no effusion no pneumothorax. No cardiomegaly. Vasculature demonstrates diffuse mild atherosclerotic calcification. * Labs reveal WBC is 10.0 with 90.2% neutrophils on the auto differential. Hemoglobin is 12.2 with a hematocrit of 37.2. MCV is normal at 93.9. Platelet count of 313, D-dimer 1.47, BUN is 14, creatinine 0.9, GFR 59, lactic acid is 1.1, mag is 2.1, serum ferritin is 543, LDH 363, troponin I is less than 0.017, CRP 23.4, BNP 998, COVID-19 is positive. 04/06/2020 * Stable on 2 L nasal cannula. * On Rocephin, remdesivir, and dexamethasone. * Allergy to Zithromax. * Appetite is only marginal. * D-dimer 1.17, CRP 9.7, albumin 2.6, white count 5.17 * GFR 59 and creatinine of 0.9 PLAN: * Continue on Rocephin 2 g IV every 24 hours x5 days. * Remdesivir 200 mg x 1 dose followed by 100 mg every 24 hours for total of 5 doses * Dexamethasone 6 mg daily x10 days * Lovenox for DVT prophylaxis. * Patient is a full code. * RT following * Incentive spirometer and flutter valve every 1 hour while awake. * Vital signs every 4 hours * Strict intake and output and daily weight * PT/OT to eval and treat * protective services social worker and case management for discharge planning * Dietitian to consult regarding caloric needs * Pastoral care * Albuterol nebulizer every 2 hours as needed for dyspnea or wheezing. * Length of stay greater than 96 hours due to the treatment of Covid 04/07/20 * Will start low-dose sliding scale insulin with Humalog insulin 4 times daily before meals and at bedtime. * Will order hemoglobin A1c * Continue to strongly encourage the use of incentive spirometer and flutter valve * Lovenox for DVT prophylaxis. * PT OT to eval and treat * Respiratory therapy to continue titrating oxygen for sats 88 to 94% * protective services social worker for discharge planning patient will likely be here through the weekend.
[2020-04-07 12:23] LABS: HEMOGLOBIN A1C 6.7 % (4.50-6.20)
[2020-04-07] MEDS: cefTRIAXone 2 GM in Sodium Chloride 0.9% 100 ML IV SCH (14:31)
[2020-04-07] MEDS: REMDESIVIR 100 MG in Sodium Chloride 0.9% 100 ML IV SCH (16:20)
[2020-04-07] MEDS: Insulin Lispro 100 Units/ML 3 ML Vial SUBCUT SCH ×2 (18:35→21:30)
[2020-04-07] MEDS: Simvastatin 40 MG Tab PO SCH (21:04)
[2020-04-08] MEDS: Enoxaparin 30 MG/0.3 ML Syringe SUBCUT SCH ×2 (05:54→17:00)
[2020-04-08] MEDS: Levothyroxine 50 MCG Tab PO SCH (05:54)
[2020-04-08] MEDS: Pantoprazole 40 MG Tab.CR PO SCH (05:54)
[2020-04-08] MEDS: Formoterol/Mometasone 200-5 MCG 8.8 GM Inhaler IH SCH ×2 (09:00→21:13)
[2020-04-08] MEDS: Dexamethasone 4 MG Tab PO SCH (09:21)
[2020-04-08] MEDS: Pregabalin 25 MG Cap PO SCH ×2 (09:21→21:46)
[2020-04-08] MEDS: Docusate Sodium 100 MG Cap PO SCH ×2 (09:21→21:47)
[2020-04-08] MEDS: Hydrochlorothiazide 12.5 MG Cap PO SCH (09:21)
[2020-04-08] MEDS: Aspirin 81 MG Tab.EC PO SCH (09:21)
[2020-04-08] MEDS: Metoprolol Succinate 25 MG Tab.ER PO SCH (09:21)
[2020-04-08] MEDS: Losartan 25 MG Tab PO SCH (09:22)
[2020-04-08] MEDS: Insulin Lispro 100 Units/ML 3 ML Vial SUBCUT SCH ×4 (09:22→21:46)
--- NOTE | 2020-04-08 11:24 | PCM.PN ---
- General Info Date of Service: 04/08/20 Admission Dx/Problem (Free Text): Admission Diagnosis/Problem Admission Diagnosis/Problem Hypoxia Subjective Update: No overnight or acute issues. She fells pretty good althought she is abit short of breath. She is now down to 1.5L NC for O2 requirement. She eating and drinking okay. Last BM was on the . Functional Status: Reports: Pain Controlled, Ambulating, Incentive Spirometry - Review of Systems General: Denies: Fever, Chills HEENT: Reports: No Symptoms Pulmonary: Reports: Shortness of Breath. Denies: Cough Cardiovascular: Denies: Chest Pain Gastrointestinal: Reports: Constipation. Denies: Abdominal Pain, Nausea, Vomiting Genitourinary: Reports: No Symptoms Musculoskeletal: Denies: Joint Pain Skin: Denies: Rash Neurological: Denies: Confusion, Weakness Psychiatric: Denies: Depression, Anxiety - Patient Data Vitals - Most Recent: Last Vital Signs Temp 36.4 C 04/08/20 07:42 Pulse 64 04/08/20 09:21 Resp 16 04/08/20 07:42 BP 144/70 H 04/08/20 09:22 Pulse Ox 90 L 04/08/20 09:24 Weight - Most Recent: 70.76 kg I&O - Last 24 Hours: Intake & Output 04/07/20 04/08/20 04/08/20 22:59 06:59 14:59 Intake Total 1620 50 Output Total 950 600 Balance 670 -550 Lab Results Last 24 Hours: Laboratory Results - last 24 hr 04/07/20 04/07/20 04/07/20 Range/Units 05:41 16:36 21:03 WBC (3.98-10.04) K/mm3 RBC (3.98-5.22) M/mm3 Hgb (11.2-15.7) gm/dl Hct (34.1-44.9) % MCV (79.4-94.8) fl MCH (25.6-32.2) pg MCHC (32.2-35.5) g/dl RDW Std Deviation (36.4-46.3) fL Plt Count (182-369) K/mm3 MPV (9.4-12.3) fl Neut % (Auto) (34.0-71.1) % Lymph % (Auto) (19.3-51.7) % [place] % (Auto) (4.7-12.5) % Eos % (Auto) (0.7-5.8) Baso % (Auto) (0.1-1.2) % Neut # (Auto) (1.56-6.13) K/mm3 Lymph # (Auto) (1.18-3.74) K/mm3 [place] # (Auto) (0.24-0.36) K/mm3 Eos # (Auto) (0.04-0.36) K/mm3 Baso # (Auto) (0.01-0.08) K/mm3 Manual Slide Review D-Dimer, Quantitative (0.19-0.50) mg/L Sodium (136-145) mEq/L Potassium (3.5-5.1) mEq/L Chloride (98-107) mEq/L Carbon Dioxide (21-32) mEq/L Anion Gap (5-15) BUN (7-18) mg/dL Creatinine (0.55-1.02) mg/dL Est Cr Clr Drug Dosing mL/min Estimated GFR (MDRD) (>60) mL/min BUN/Creatinine Ratio (14-18) Glucose (83-115) mg/dL POC Glucose 206 H 216 H (83-110) mg/dL Hemoglobin A1c 6.70 H (4.50-6.20) % Calcium (8.5-10.1) mg/dL Phosphorus (2.6-4.7) mg/dL Magnesium (1.8-2.4) mg/dl Total Bilirubin (0.2-1.0) mg/dL AST (15-37) U/L ALT (14-59) U/L Alkaline Phosphatase (46-116) U/L C-Reactive Protein (<1.0) mg/dL NT-Pro-B Natriuret Pep (0-450) pg/mL Total Protein (6.4-8.2) g/dl Albumin (3.4-5.0) g/dl Globulin gm/dL Albumin/Globulin Ratio (1-2) 04/08/20 04/08/20 04/08/20 Range/Units 05:01 05:01 05:01 WBC 12.15 H (3.98-10.04) K/mm3 RBC 3.54 L (3.98-5.22) M/mm3 Hgb 11.1 L (11.2-15.7) gm/dl Hct 33.0 L (34.1-44.9) % MCV 93.2 (79.4-94.8) fl MCH 31.4 (25.6-32.2) pg MCHC 33.6 (32.2-35.5) g/dl RDW Std Deviation 45.1 (36.4-46.3) fL Plt Count 397 H (182-369) K/mm3 MPV 9.5 (9.4-12.3) fl Neut % (Auto) 84.1 H (34.0-71.1) % Lymph % (Auto) 7.4 L (19.3-51.7) % [place] % (Auto) 8.3 (4.7-12.5) % Eos % (Auto) 0 L (0.7-5.8) Baso % (Auto) 0.2 (0.1-1.2) % Neut # (Auto) 10.22 H (1.56-6.13) K/mm3 Lymph # (Auto) 0.90 L (1.18-3.74) K/mm3 [place] # (Auto) 1.01 H (0.24-0.36) K/mm3 Eos # (Auto) 0.00 L (0.04-0.36) K/mm3 Baso # (Auto) 0.02 (0.01-0.08) K/mm3 Manual Slide Review Abnormal smear D-Dimer, Quantitative 1.59 H (0.19-0.50) mg/L Sodium 137 (136-145) mEq/L Potassium 3.6 (3.5-5.1) mEq/L Chloride 103 (98-107) mEq/L Carbon Dioxide 23 (21-32) mEq/L Anion Gap 14.6 (5-15) BUN 24 H (7-18) mg/dL Creatinine 1.0 (0.55-1.02) mg/dL Est Cr Clr Drug Dosing 30.47 mL/min Estimated GFR (MDRD) 53 (>60) mL/min BUN/Creatinine Ratio 24.0 H (14-18) Glucose 113 (83-115) mg/dL POC Glucose (83-110) mg/dL Hemoglobin A1c (4.50-6.20) % Calcium 8.8 (8.5-10.1) mg/dL Phosphorus 2.8 (2.6-4.7) mg/dL Magnesium 1.9 (1.8-2.4) mg/dl Total Bilirubin 0.2 (0.2-1.0) mg/dL AST 24 (15-37) U/L ALT 38 (14-59) U/L Alkaline Phosphatase 68 (46-116) U/L C-Reactive Protein 5.8 H* (<1.0) mg/dL NT-Pro-B Natriuret Pep (0-450) pg/mL Total Protein 5.7 L (6.4-8.2) g/dl Albumin 2.0 L (3.4-5.0) g/dl Globulin 3.7 gm/dL Albumin/Globulin Ratio 0.5 L (1-2) 04/08/20 04/08/20 Range/Units 05:01 05:47 WBC (3.98-10.04) K/mm3 RBC (3.98-5.22) M/mm3 Hgb (11.2-15.7) gm/dl Hct (34.1-44.9) % MCV (79.4-94.8) fl MCH (25.6-32.2) pg MCHC (32.2-35.5) g/dl RDW Std Deviation (36.4-46.3) fL Plt Count (182-369) K/mm3 MPV (9.4-12.3) fl Neut % (Auto) (34.0-71.1) % Lymph % (Auto) (19.3-51.7) % [place] % (Auto) (4.7-12.5) % Eos % (Auto) (0.7-5.8) Baso % (Auto) (0.1-1.2) % Neut # (Auto) (1.56-6.13) K/mm3 Lymph # (Auto) (1.18-3.74) K/mm3 [place] # (Auto) (0.24-0.36) K/mm3 Eos # (Auto) (0.04-0.36) K/mm3 Baso # (Auto) (0.01-0.08) K/mm3 Manual Slide Review D-Dimer, Quantitative (0.19-0.50) mg/L Sodium (136-145) mEq/L Potassium (3.5-5.1) mEq/L Chloride (98-107) mEq/L Carbon Dioxide (21-32) mEq/L Anion Gap (5-15) BUN (7-18) mg/dL Creatinine (0.55-1.02) mg/dL Est Cr Clr Drug Dosing mL/min Estimated GFR (MDRD) (>60) mL/min BUN/Creatinine Ratio (14-18) Glucose (83-115) mg/dL POC Glucose 107 (83-110) mg/dL Hemoglobin A1c (4.50-6.20) % Calcium (8.5-10.1) mg/dL Phosphorus (2.6-4.7) mg/dL Magnesium (1.8-2.4) mg/dl Total Bilirubin (0.2-1.0) mg/dL AST (15-37) U/L ALT (14-59) U/L Alkaline Phosphatase (46-116) U/L C-Reactive Protein (<1.0) mg/dL NT-Pro-B Natriuret Pep 1022 H (0-450) pg/mL Total Protein (6.4-8.2) g/dl Albumin (3.4-5.0) g/dl Globulin gm/dL Albumin/Globulin Ratio (1-2) Mason Results Last 24 Hours: Microbiology 04/05/20 12:55 Aerobic Blood Culture - Preliminary Blood - Venous NO GROWTH AFTER 2 DAYS Anaerobic Blood Culture - Preliminary NO GROWTH AFTER 2 DAYS 04/05/20 13:12 Aerobic Blood Culture - Preliminary Blood - Venous - Lab Draw NO GROWTH AFTER 2 DAYS Anaerobic Blood Culture - Preliminary NO GROWTH AFTER 2 DAYS Med Orders - Current: Current Medications Acetaminophen (Tylenol) 650 mg PO Q4H PRN PRN Reason: Pain (Mild 1-3)/fever Albuterol (Proventil Neb Soln) 2.5 mg NEB Q2H PRN PRN Reason: Dyspnea Albuterol (Proventil Hfa) 0 gm INH Q4H PRN PRN Reason: Shortness of Breath Aspirin (Halfprin) 81 mg PO DAILY [facility] Last Admin: 04/08/20 09:21 Dose: 81 mg Documented by: Dexamethasone (Dexamethasone) 6 mg PO DAILY [facility] Stop: 04/14/20 09:01 Last Admin: 04/08/20 09:21 Dose: 6 mg Documented by: Diclofenac Sodium (Voltaren 1% Gel) 2 gm TOP QID PRN PRN Reason: Pain Docusate Sodium (Colace) 100 mg PO BID PRN PRN Reason: Constipation Docusate Sodium (Colace) 100 mg PO BID [facility] Last Admin: 04/08/20 09:21 Dose: 100 mg Documented by: Enoxaparin Sodium (Lovenox) 30 mg SUBCUT Q12H [facility] Last Admin: 04/08/20 05:54 Dose: 30 mg Documented by: Hydrochlorothiazide (Hydrochlorothiazide) 12.5 mg PO DAILY [facility] Last Admin: 04/08/20 09:21 Dose: 12.5 mg Documented by: Ceftriaxone Sodium 2 gm/ (Sodium Chloride) 100 mls @ 200 mls/hr IV Q24H [facility] Stop: 04/09/20 15:44 Last Admin: 04/07/20 14:31 Dose: 200 mls/hr Documented by: Remdesivir 100 mg/ Sodium (Chloride) 100 mls @ 100 mls/hr IV Q24H [facility] Stop: 04/09/20 16:59 Last Admin: 04/07/20 16:20 Dose: 100 mls/hr Documented by: Insulin Human Lispro (Humalog) 0 unit SUBCUT QIDACANDBED [facility]; Protocol Last Admin: 04/08/20 09:22 Dose: Not Given Documented by: Levothyroxine Sodium (Synthroid) 50 mcg PO [facility] Last Admin: 04/08/20 05:54 Dose: 50 mcg Documented by: Losartan Potassium (Cozaar) 50 mg PO DAILY [facility] Last Admin: 04/08/20 09:22 Dose: 50 mg Documented by: Metoprolol Succinate (Toprol Xl) 25 mg PO DAILY [facility] Last Admin: 04/08/20 09:21 Dose: 25 mg Documented by: Mometasone Furoate/Formoterol Fumar (Dulera 200-5 Mcg) 2 puff IH BID [facility] Last Admin: 04/07/20 20:23 Dose: 2 puff Documented by: Ondansetron HCl (Zofran) 4 mg IV Q4H PRN PRN Reason: Nausea/Vomiting Pantoprazole Sodium (Protonix) 40 mg PO ACBRK [facility] Last Admin: 04/08/20 05:54 Dose: 40 mg Documented by: Polyethylene Glycol (Miralax) 17 gm PO DAILY PRN PRN Reason: Constipation Pregabalin (Lyrica) 50 mg PO BEDTIME [facility] Last Admin: 04/07/20 21:04 Dose: Not Given Documented by: Pregabalin (Lyrica) 25 mg PO DAILY [facility] Last Admin: 04/08/20 09:21 Dose: 25 mg Documented by: Simvastatin (Zocor) 40 mg PO BEDTIME [facility] Last Admin: 04/07/20 21:04 Dose: 40 mg Documented by: Sodium Chloride (Saline Flush) 10 ml FLUSH ASDIRECTED PRN PRN Reason: Keep Vein Open Discontinued Medications Diphenhydramine HCl (Benadryl) 25 mg IVPUSH ONCALL ONE Stop: 04/05/20 18:16 Last Admin: 04/05/20 18:19 Dose: 25 mg Documented by: Enoxaparin Sodium (Lovenox) 30 mg SUBCUT Q12H [facility] Last Admin: 04/07/20 14:31 Dose: 30 mg Documented by: Dextrose/Sodium Chloride (Dextrose 5%-Normal Saline) 1,000 mls @ 100 mls/hr IV ASDIRECTED [facility] Last Admin: 04/05/20 13:06 Dose: 100 mls/hr Documented by: Remdesivir 200 mg/ Sodium (Chloride) 250 mls @ 250 mls/hr IV ONETIME ONE Stop: 04/05/20 16:59 Last Admin: 04/05/20 16:28 Dose: 250 mls/hr Documented by: Sodium Chloride (Normal Saline) 250 mls @ 75 mls/hr IV ASDIRECTED [facility] Pantoprazole Sodium (Protonix) 40 mg PO DAILY ONE Stop: 04/06/20 13:59 Last Admin: 04/06/20 14:55 Dose: 40 mg Documented by: - Exam Quality Assessment: Supplemental Oxygen. No: Urine Catheter General: Alert, Oriented, Cooperative, No Acute Distress HEENT: Pupils Equal, Pupils Reactive, EOMI, Mucous Membr. Moist/[place] Neck: Supple Lungs: Normal Respiratory Effort, Decreased Breath Sounds Cardiovascular: Regular Rate, Regular Rhythm GI/Abdominal Exam: Normal Bowel Sounds, Soft, Non-Tender, No Organomegaly, No Distention, No Abnormal Bruit (Female) Exam: Deferred Back Exam: Normal Inspection, Decreased Range of Motion Extremities: Normal Inspection, Normal Range of Motion, Non-Tender, No Pedal Edema, Normal Capillary Refill Peripheral Pulses: 2+: Dorsalis Pedis (L), Dorsalis Pedis (R) Skin: Warm, Dry, Intact Neurological: No New Focal Deficit Psy/Mental Status: Alert, Normal Affect, Normal Mood Sepsis Event Note - Evaluation Sepsis Screening Result: No Definite Risk - Focused Exam Vital Signs: Vital Signs Temp Pulse Resp BP Pulse Ox Pulse Ox 04/08/20 09:24 90 L 04/08/20 09:22 144/70 H 04/08/20 09:21 64 144/70 H 04/08/20 07:42 36.4 C 64 16 144/70 H 97 04/08/20 06:40 93 L 04/08/20 05:52 36.6 C 64 16 147/83 H 95 04/08/20 00:51 36.8 C 61 18 137/65 95 - Problem List Review Problem List Initiated/Reviewed/Updated: Yes - Assessment Assessment:: Acute: Covid-19 Infection Viral Pneumonitis/Atypical Pneumonia Hypoxia now on 2-1.5L NC leukocytosis with WBC of 12.15 Normocytic Normochromic Anemia with Hgb of 11.1 Mild Thrombocytosis Elevated D-dimer of 1.59 Elevated CRP of 5.8 Elevated proBNP of 1022 Hypoalbuminemia with Albumin of 2.0 Chronic: HTN HLD Hypothyroidism GERD Asthma Peripheral Neuropathy Overweight - Plan Plan:: 04/05/20 * 85-year-old female with gradual onset of generalized malaise and not feeling well that started about 4 days ago. She states she developed a cough about 2 days ago. * Denies any known exposure to Covid. * O2 saturations when presenting to the emergency department were 87% on room air * Has had decreased appetite but still has her taste and smell. * Diarrhea that started today * Initial labs in the emergency department reveal a temp of 36.2 Celsius, pulse 72, respiratory rate 22, blood pressure 143/64, O2 sats are 97% on 2 L of oxygen per nasal cannula * Initial ABGs reveal a pH of 7.44, PCO2 of 32.9, and a PO2 of 58 on room air sats of 89.5% on room air. * Portable chest x-ray reveals nonspecific bibasilar consolidation consistent with atelectasis edema or viral pneumonia. Pleural space unremarkable no effusion no pneumothorax. No cardiomegaly. Vasculature demonstrates diffuse mild atherosclerotic calcification. * Labs reveal WBC is 10.0 with 90.2% neutrophils on the auto differential. Hemoglobin is 12.2 with a hematocrit of 37.2. MCV is normal at 93.9. Platelet count of 313, D-dimer 1.47, BUN is 14, creatinine 0.9, GFR 59, lactic acid is 1.1, mag is 2.1, serum ferritin is 543, LDH 363, troponin I is less than 0.017, CRP 23.4, BNP 998, COVID-19 is positive. 04/06/2020 * Stable on 2 L nasal cannula. * On Rocephin, remdesivir, and dexamethasone. * Allergy to Zithromax. * Appetite is only marginal. * D-dimer 1.17, CRP 9.7, albumin 2.6, white count 5.17 * GFR 59 and creatinine of 0.9 PLAN: * Continue on Rocephin 2 g IV every 24 hours x5 days. * Remdesivir 200 mg x 1 dose followed by 100 mg every 24 hours for total of 5 doses * Dexamethasone 6 mg daily x10 days * Lovenox for DVT prophylaxis. * Patient is a full code. * RT following * Incentive spirometer and flutter valve every 1 hour while awake. * Vital signs every 4 hours * Strict intake and output and daily weight * PT/OT to eval and treat * member services coordinator and case management for discharge planning * Dietitian to consult regarding caloric needs * Pastoral care * Albuterol nebulizer every 2 hours as needed for dyspnea or wheezing. * Length of stay greater than 96 hours due to the treatment of Covid 04/07/20 * Will start low-dose sliding scale insulin with Humalog insulin 4 times daily before meals and at bedtime. Contneu current treatment * Will order hemoglobin A1c * Continue to strongly encourage the use of incentive spirometer and flutter valve * Lovenox for DVT prophylaxis. * PT OT to eval and treat * Respiratory therapy to continue titrating oxygen for sats 88 to 94% * member services coordinator for discharge planning patient will likely be here through the weekend. 04/08/20 * Continue current treatment * Encourage to Use IS abd FV as directed * Ambulate inside her room as much as she can * Rocephin 3/5, Dexamethasone 08/19, remdesivir /, and Lovenox 30 units subQ BID * Completed Azithromycin * Change ISS to moderate intensity and start her on Lantus 5 units Sub BID * Stool softener and laxative for constipation * Anticipate discharge > 96 hrs to complete covid-19 treatment regimen * Prognosis is good
[2020-04-08] MEDS ORDERED: Magnesium Hydroxide 400 MG/5 ML Susp 30 ML Cup PO ONE (14:57)
[2020-04-08] MEDS ORDERED: Bisacodyl 10 MG Supp RECTAL ONE (14:58)
[2020-04-08] MEDS: cefTRIAXone 2 GM in Sodium Chloride 0.9% 100 ML IV SCH (16:01)
[2020-04-08] MEDS: Insulin Glarg,Human.Rec.Analog 100 Unit/ML SUBCUT SCH (16:59)
[2020-04-08] MEDS: REMDESIVIR 100 MG in Sodium Chloride 0.9% 100 ML IV SCH (17:00)
[2020-04-08] MEDS: Simvastatin 40 MG Tab PO SCH (21:47)
[2020-04-08] MEDS ORDERED: Carvedilol 6.25 MG Tab PO ONE (21:51)
[2020-04-08] MEDS ORDERED: QUEtiapine 25 MG Tab PO ONE (21:51)
[2020-04-09] MEDS: Enoxaparin 30 MG/0.3 ML Syringe SUBCUT SCH ×2 (05:37→17:35)
[2020-04-09] MEDS: Levothyroxine 50 MCG Tab PO SCH (05:37)
[2020-04-09] MEDS: Pantoprazole 40 MG Tab.CR PO SCH (05:37)
[2020-04-09] MEDS ORDERED: Carvedilol 6.25 MG Tab PO SCH (07:00)
[2020-04-09] MEDS: Insulin Lispro 100 Units/ML 3 ML Vial SUBCUT SCH ×3 (07:45→17:35)
--- NOTE | 2020-04-09 07:56 | PCM.PN ---
- General Info Date of Service: 04/09/20 Admission Dx/Problem (Free Text): Admission Diagnosis/Problem Admission Diagnosis/Problem Hypoxia Subjective Update: No overnight or acute issues. She feels pretty good. She has no complaints. She is now on RA sating adequately. Her BS is controlled and CRP is down to 3.4. Repeat chest x-ray today shows no worsening of existing multilobar pneumonia. Functional Status: Reports: Pain Controlled - Review of Systems General: Denies: Fever, Chills HEENT: Denies: Contact Lenses Pulmonary: Denies: Shortness of Breath Cardiovascular: Denies: Chest Pain Gastrointestinal: Denies: Abdominal Pain, Nausea, Vomiting Genitourinary: Denies: Frequency Musculoskeletal: Denies: Joint Pain Skin: Denies: Rash Neurological: Denies: Confusion, Dizziness Psychiatric: Denies: Depression, Anxiety - Patient Data Vitals - Most Recent: Last Vital Signs Temp 36.9 C 04/09/20 05:30 Pulse 56 L 04/09/20 05:30 Resp 20 04/09/20 05:30 BP 145/64 H 04/09/20 05:30 Pulse Ox 88 L 04/09/20 06:21 Weight - Most Recent: 70.352 kg I&O - Last 24 Hours: Intake & Output 04/08/20 04/09/20 04/09/20 22:59 06:59 14:59 Intake Total 1060 100 Output Total 400 600 Balance 660 -500 Lab Results Last 24 Hours: Laboratory Results - last 24 hr 04/08/20 04/08/20 04/08/20 Range/Units 13:20 16:58 20:55 WBC (3.98-10.04) K/mm3 RBC (3.98-5.22) M/mm3 Hgb (11.2-15.7) gm/dl Hct (34.1-44.9) % MCV (79.4-94.8) fl MCH (25.6-32.2) pg MCHC (32.2-35.5) g/dl RDW Std Deviation (36.4-46.3) fL Plt Count (182-369) K/mm3 MPV (9.4-12.3) fl Neut % (Auto) (34.0-71.1) % Lymph % (Auto) (19.3-51.7) % Stanton % (Auto) (4.7-12.5) % Eos % (Auto) (0.7-5.8) Baso % (Auto) (0.1-1.2) % Neut # (Auto) (1.56-6.13) K/mm3 Lymph # (Auto) (1.18-3.74) K/mm3 Stanton # (Auto) (0.24-0.36) K/mm3 Eos # (Auto) (0.04-0.36) K/mm3 Baso # (Auto) (0.01-0.08) K/mm3 D-Dimer, Quantitative (0.19-0.50) mg/L Sodium (136-145) mEq/L Potassium (3.5-5.1) mEq/L Chloride (98-107) mEq/L Carbon Dioxide (21-32) mEq/L Anion Gap (5-15) BUN (7-18) mg/dL Creatinine (0.55-1.02) mg/dL Est Cr Clr Drug Dosing mL/min Estimated GFR (MDRD) (>60) mL/min BUN/Creatinine Ratio (14-18) Glucose (83-115) mg/dL POC Glucose 116 H 256 H 159 H (83-110) mg/dL Calcium (8.5-10.1) mg/dL Phosphorus (2.6-4.7) mg/dL Magnesium (1.8-2.4) mg/dl Total Bilirubin (0.2-1.0) mg/dL AST (15-37) U/L ALT (14-59) U/L Alkaline Phosphatase (46-116) U/L C-Reactive Protein (<1.0) mg/dL NT-Pro-B Natriuret Pep (0-450) pg/mL Total Protein (6.4-8.2) g/dl Albumin (3.4-5.0) g/dl Globulin gm/dL Albumin/Globulin Ratio (1-2) 04/09/20 04/09/20 04/09/20 Range/Units 05:15 05:15 05:15 WBC 9.92 (3.98-10.04) K/mm3 RBC 3.56 L (3.98-5.22) M/mm3 Hgb 11.1 L (11.2-15.7) gm/dl Hct 33.4 L (34.1-44.9) % MCV 93.8 (79.4-94.8) fl MCH 31.2 (25.6-32.2) pg MCHC 33.2 (32.2-35.5) g/dl RDW Std Deviation 45.3 (36.4-46.3) fL Plt Count 411 H (182-369) K/mm3 MPV 9.3 L (9.4-12.3) fl Neut % (Auto) 76.7 H (34.0-71.1) % Lymph % (Auto) 12.2 L (19.3-51.7) % Stanton % (Auto) 11.0 (4.7-12.5) % Eos % (Auto) 0 L (0.7-5.8) Baso % (Auto) 0.1 (0.1-1.2) % Neut # (Auto) 7.61 H (1.56-6.13) K/mm3 Lymph # (Auto) 1.21 (1.18-3.74) K/mm3 Stanton # (Auto) 1.09 H (0.24-0.36) K/mm3 Eos # (Auto) 0.00 L (0.04-0.36) K/mm3 Baso # (Auto) 0.01 (0.01-0.08) K/mm3 D-Dimer, Quantitative 1.47 H (0.19-0.50) mg/L Sodium 137 (136-145) mEq/L Potassium 3.9 (3.5-5.1) mEq/L Chloride 102 (98-107) mEq/L Carbon Dioxide 25 (21-32) mEq/L Anion Gap 13.9 (5-15) BUN 25 H (7-18) mg/dL Creatinine 0.9 (0.55-1.02) mg/dL Est Cr Clr Drug Dosing 33.86 mL/min Estimated GFR (MDRD) 59 (>60) mL/min BUN/Creatinine Ratio 27.8 H (14-18) Glucose 95 (83-115) mg/dL POC Glucose (83-110) mg/dL Calcium 8.8 (8.5-10.1) mg/dL Phosphorus 2.1 L (2.6-4.7) mg/dL Magnesium 2.0 (1.8-2.4) mg/dl Total Bilirubin 0.2 (0.2-1.0) mg/dL AST 18 (15-37) U/L ALT 34 (14-59) U/L Alkaline Phosphatase 65 (46-116) U/L C-Reactive Protein 3.4 H* (<1.0) mg/dL NT-Pro-B Natriuret Pep (0-450) pg/mL Total Protein 5.5 L (6.4-8.2) g/dl Albumin 2.0 L (3.4-5.0) g/dl Globulin 3.5 gm/dL Albumin/Globulin Ratio 0.6 L (1-2) 04/09/20 04/09/20 Range/Units 05:15 06:50 WBC (3.98-10.04) K/mm3 RBC (3.98-5.22) M/mm3 Hgb (11.2-15.7) gm/dl Hct (34.1-44.9) % MCV (79.4-94.8) fl MCH (25.6-32.2) pg MCHC (32.2-35.5) g/dl RDW Std Deviation (36.4-46.3) fL Plt Count (182-369) K/mm3 MPV (9.4-12.3) fl Neut % (Auto) (34.0-71.1) % Lymph % (Auto) (19.3-51.7) % Stanton % (Auto) (4.7-12.5) % Eos % (Auto) (0.7-5.8) Baso % (Auto) (0.1-1.2) % Neut # (Auto) (1.56-6.13) K/mm3 Lymph # (Auto) (1.18-3.74) K/mm3 Stanton # (Auto) (0.24-0.36) K/mm3 Eos # (Auto) (0.04-0.36) K/mm3 Baso # (Auto) (0.01-0.08) K/mm3 D-Dimer, Quantitative (0.19-0.50) mg/L Sodium (136-145) mEq/L Potassium (3.5-5.1) mEq/L Chloride (98-107) mEq/L Carbon Dioxide (21-32) mEq/L Anion Gap (5-15) BUN (7-18) mg/dL Creatinine (0.55-1.02) mg/dL Est Cr Clr Drug Dosing mL/min Estimated GFR (MDRD) (>60) mL/min BUN/Creatinine Ratio (14-18) Glucose (83-115) mg/dL POC Glucose 82 L (83-110) mg/dL Calcium (8.5-10.1) mg/dL Phosphorus (2.6-4.7) mg/dL Magnesium (1.8-2.4) mg/dl Total Bilirubin (0.2-1.0) mg/dL AST (15-37) U/L ALT (14-59) U/L Alkaline Phosphatase (46-116) U/L C-Reactive Protein (<1.0) mg/dL NT-Pro-B Natriuret Pep 747 H (0-450) pg/mL Total Protein (6.4-8.2) g/dl Albumin (3.4-5.0) g/dl Globulin gm/dL Albumin/Globulin Ratio (1-2) Mason Results Last 24 Hours: Microbiology 04/05/20 12:55 Aerobic Blood Culture - Preliminary Blood - Venous NO GROWTH AFTER 3 DAYS Anaerobic Blood Culture - Preliminary NO GROWTH AFTER 3 DAYS 04/05/20 13:12 Aerobic Blood Culture - Preliminary Blood - Venous - Lab Draw NO GROWTH AFTER 3 DAYS Anaerobic Blood Culture - Preliminary NO GROWTH AFTER 3 DAYS Med Orders - Current: Current Medications Acetaminophen (Tylenol) 650 mg PO Q4H PRN PRN Reason: Pain (Mild 1-3)/fever Albuterol (Proventil Neb Soln) 2.5 mg NEB Q2H PRN PRN Reason: Dyspnea Albuterol (Proventil Hfa) 0 gm INH Q4H PRN PRN Reason: Shortness of Breath Aspirin (Halfprin) 81 mg PO DAILY [facility] Last Admin: 04/08/20 09:21 Dose: 81 mg Documented by: Dexamethasone (Dexamethasone) 6 mg PO DAILY [facility] Stop: 04/14/20 09:01 Last Admin: 04/08/20 09:21 Dose: 6 mg Documented by: Diclofenac Sodium (Voltaren 1% Gel) 2 gm TOP QID PRN PRN Reason: Pain Docusate Sodium (Colace) 100 mg PO BID PRN PRN Reason: Constipation Docusate Sodium (Colace) 100 mg PO BID [facility] Last Admin: 04/08/20 21:47 Dose: Not Given Documented by: Enoxaparin Sodium (Lovenox) 30 mg SUBCUT Q12H [facility] Last Admin: 04/09/20 05:37 Dose: 30 mg Documented by: Hydrochlorothiazide (Hydrochlorothiazide) 12.5 mg PO DAILY [facility] Last Admin: 04/08/20 09:21 Dose: 12.5 mg Documented by: Ceftriaxone Sodium 2 gm/ (Sodium Chloride) 100 mls @ 200 mls/hr IV Q24H [facility] Stop: 04/09/20 15:44 Last Admin: 04/08/20 16:01 Dose: 200 mls/hr Documented by: Remdesivir 100 mg/ Sodium (Chloride) 100 mls @ 100 mls/hr IV Q24H [facility] Stop: 04/09/20 16:59 Last Admin: 04/08/20 17:00 Dose: 100 mls/hr Documented by: Insulin Human Lispro (Humalog) 0 unit SUBCUT QIDACANDBED [facility]; Protocol Last Admin: 04/09/20 07:45 Dose: Not Given Documented by: Levothyroxine Sodium (Synthroid) 50 mcg PO [facility] Last Admin: 04/09/20 05:37 Dose: 50 mcg Documented by: Losartan Potassium (Cozaar) 50 mg PO DAILY [facility] Last Admin: 04/08/20 09:22 Dose: 50 mg Documented by: Metoprolol Succinate (Toprol Xl) 25 mg PO DAILY [facility] Last Admin: 04/08/20 09:21 Dose: 25 mg Documented by: Mometasone Furoate/Formoterol Fumar (Dulera 200-5 Mcg) 2 puff IH BID [facility] Last Admin: 04/08/20 21:13 Dose: 2 puff Documented by: Ondansetron HCl (Zofran) 4 mg IV Q4H PRN PRN Reason: Nausea/Vomiting Pantoprazole Sodium (Protonix) 40 mg PO ACBRK [facility] Last Admin: 04/09/20 05:37 Dose: 40 mg Documented by: Polyethylene Glycol (Miralax) 17 gm PO DAILY PRN PRN Reason: Constipation Pregabalin (Lyrica) 50 mg PO BEDTIME [facility] Last Admin: 11/28/20 21:46 Dose: Not Given Documented by: Pregabalin (Lyrica) 25 mg PO DAILY [facility] Last Admin: 04/08/20 09:21 Dose: 25 mg Documented by: Simvastatin (Zocor) 40 mg PO BEDTIME [facility] Last Admin: 04/08/20 21:47 Dose: 40 mg Documented by: Sodium Chloride (Saline Flush) 10 ml FLUSH ASDIRECTED PRN PRN Reason: Keep Vein Open Zinc Sulfate (Zincate) 220 mg PO DAILY [facility] Discontinued Medications Bisacodyl (Dulcolax) 10 mg RECTAL ONETIME ONE Stop: 04/08/20 14:59 Last Admin: 04/08/20 16:01 Dose: 10 mg Documented by: Carvedilol (Coreg) 6.25 mg PO ONETIME ONE Stop: 04/08/20 21:52 Last Admin: 04/08/20 23:01 Dose: Not Given Documented by: Carvedilol (Coreg) 6.25 mg PO BIDMEALS [facility] Diphenhydramine HCl (Benadryl) 25 mg IVPUSH ONCALL ONE Stop: 04/05/20 18:16 Last Admin: 04/05/20 18:19 Dose: 25 mg Documented by: Enoxaparin Sodium (Lovenox) 30 mg SUBCUT Q12H [facility] Last Admin: 04/07/20 14:31 Dose: 30 mg Documented by: Dextrose/Sodium Chloride (Dextrose 5%-Normal Saline) 1,000 mls @ 100 mls/hr IV ASDIRECTED [facility] Last Admin: 04/05/20 13:06 Dose: 100 mls/hr Documented by: Remdesivir 200 mg/ Sodium (Chloride) 250 mls @ 250 mls/hr IV ONETIME ONE Stop: 04/05/20 16:59 Last Admin: 04/05/20 16:28 Dose: 250 mls/hr Documented by: Sodium Chloride (Normal Saline) 250 mls @ 75 mls/hr IV ASDIRECTED [facility] Insulin Glargine (Lantus) 5 unit SUBCUT BIDAC [facility] Last Admin: 04/08/20 16:59 Dose: 5 units Documented by: Magnesium Hydroxide (Milk Of Magnesia) 30 ml PO ONETIME ONE Stop: 04/08/20 14:58 Last Admin: 04/08/20 16:01 Dose: 30 ml Documented by: Pantoprazole Sodium (Protonix) 40 mg PO DAILY ONE Stop: 04/06/20 13:59 Last Admin: 04/06/20 14:55 Dose: 40 mg Documented by: Quetiapine Fumarate (Seroquel) 12.5 mg PO ONETIME ONE Stop: 04/08/20 21:52 Last Admin: 04/08/20 23:01 Dose: Not Given Documented by: - Exam Quality Assessment: No: Supplemental Oxygen General: Alert, Oriented, Cooperative HEENT: Pupils Equal, Pupils Reactive, EOMI, Mucous Membr. Moist/[place] Neck: Supple Lungs: Clear to Auscultation, Normal Respiratory Effort Cardiovascular: Regular Rate, Regular Rhythm GI/Abdominal Exam: Normal Bowel Sounds, Soft, Non-Tender, No Organomegaly, No Distention, No Abnormal Bruit (Female) Exam: Deferred Back Exam: Normal Inspection, Decreased Range of Motion Extremities: Normal Inspection, Normal Range of Motion, Non-Tender, No Pedal Edema, Normal Capillary Refill Peripheral Pulses: 2+: Dorsalis Pedis (L), Dorsalis Pedis (R) Skin: Warm, Dry, Intact Neurological: No New Focal Deficit Psy/Mental Status: Alert, Normal Affect, Normal Mood Sepsis Event Note - Evaluation Sepsis Screening Result: No Definite Risk - Focused Exam Vital Signs: Vital Signs Temp Pulse Resp BP Pulse Ox Pulse Ox 04/09/20 06:21 88 L 04/09/20 05:30 36.9 C 56 L 20 145/64 H 96 04/08/20 23:44 60 96 04/08/20 23:43 36.7 C 59 L 16 151/69 H 96 04/08/20 22:09 65 93 L 04/08/20 22:04 61 89 L 04/08/20 21:13 94 L 04/08/20 21:00 91 L 04/08/20 20:55 87 L 04/08/20 20:13 63 95 04/08/20 20:10 37.0 C 64 18 109/75 96 - Problem List Review Problem List Initiated/Reviewed/Updated: Yes - My Orders Last 24 Hours: My Active Orders 04/09/20 06:00 Chest 1V Frontal [CR] Routine 04/09/20 09:00 Zinc Sulfate [Zincate] 220 mg PO DAILY - Assessment Assessment:: Acute: Covid-19 Infection Viral Pneumonitis/Atypical Pneumonia Hypoxia now on 2-1.5L NC, now on RA Leukocytosis with WBC of 9,92, resolved Normocytic Normochromic Anemia with Hgb of 11.1 Mild Thrombocytosis Elevated D-dimer of 1.47 Elevated CRP of 3.4 Elevated proBNP of 1022 Hypoalbuminemia with Albumin of 2.0 Chronic: HTN HLD Hypothyroidism GERD Asthma Peripheral Neuropathy Overweight - Plan Plan:: 04/05/20 * 85-year-old female with gradual onset of generalized malaise and not feeling well that started about 4 days ago. She states she developed a cough about 2 days ago. * Denies any known exposure to Covid. * O2 saturations when presenting to the emergency department were 87% on room air * Has had decreased appetite but still has her taste and smell. * Diarrhea that started today * Initial labs in the emergency department reveal a temp of 36.2 Celsius, pulse 72, respiratory rate 22, blood pressure 143/64, O2 sats are 97% on 2 L of oxygen per nasal cannula * Initial ABGs reveal a pH of 7.44, PCO2 of 32.9, and a PO2 of 58 on room air sats of 89.5% on room air. * Portable chest x-ray reveals nonspecific bibasilar consolidation consistent with atelectasis edema or viral pneumonia. Pleural space unremarkable no effusion no pneumothorax. No cardiomegaly. Vasculature demonstrates diffuse mild atherosclerotic calcification. * Labs reveal WBC is 10.0 with 90.2% neutrophils on the auto differential. Hemoglobin is 12.2 with a hematocrit of 37.2. MCV is normal at 93.9. Platelet count of 313, D-dimer 1.47, BUN is 14, creatinine 0.9, GFR 59, lactic acid is 1.1, mag is 2.1, serum ferritin is 543, LDH 363, troponin I is less than 0.017, CRP 23.4, BNP 998, COVID-19 is positive. 04/06/2020 * Stable on 2 L nasal cannula. * On Rocephin, remdesivir, and dexamethasone. * Allergy to Zithromax. * Appetite is only marginal. * D-dimer 1.17, CRP 9.7, albumin 2.6, white count 5.17 * GFR 59 and creatinine of 0.9 PLAN: * Continue on Rocephin 2 g IV every 24 hours x5 days. * Remdesivir 200 mg x 1 dose followed by 100 mg every 24 hours for total of 5 doses * Dexamethasone 6 mg daily x10 days * Lovenox for DVT prophylaxis. * Patient is a full code. * RT following * Incentive spirometer and flutter valve every 1 hour while awake. * Vital signs every 4 hours * Strict intake and output and daily weight * PT/OT to eval and treat * account services representative and case management for discharge planning * Dietitian to consult regarding caloric needs * Pastoral care * Albuterol nebulizer every 2 hours as needed for dyspnea or wheezing. * Length of stay greater than 96 hours due to the treatment of Covid 04/07/20 * Will start low-dose sliding scale insulin with Humalog insulin 4 times daily before meals and at bedtime. Contneu current treatment * Will order hemoglobin A1c * Continue to strongly encourage the use of incentive spirometer and flutter valve * Lovenox for DVT prophylaxis. * PT OT to eval and treat * Respiratory therapy to continue titrating oxygen for sats 88 to 94% * account services representative for discharge planning patient will likely be here through the weekend. 04/08/20 * Continue current treatment * Encourage to Use IS and FV as directed * Ambulate inside her room as much as she can * Rocephin 3/5, Dexamethasone 4/10, remdesivir 2/4, and Lovenox 30 units subQ BID * Completed Azithromycin * Change ISS to moderate intensity and start her on Lantus 5 units Sub BID * Stool softener and laxative for constipation * Anticipate discharge > 96 hrs to complete covid-19 treatment regimen * Prognosis is good 04/09/20 * She is doing relatively well * Rocephin 4/5, Dexamethasone 5/10, remdesivir 3/4, and Lovenox 30 units subQ BID * Encourage to Use IS and FV as directed * Ambulate inside her room as much as she can * Change ISS to moderate intensity and start her on Lantus 5 units Sub BID * Stool softener and laxative for constipation * LOS/Discharge > 96 hrs to complete covid-19 treatment regimen * Need PT/OT to re-assess her prior to discharge * Prognosis remains good
[2020-04-09] MEDS: Formoterol/Mometasone 200-5 MCG 8.8 GM Inhaler IH SCH ×2 (08:28→20:36)
[2020-04-09] MEDS ORDERED: Insulin Lispro 100 Units/ML 3 ML Vial SUBCUT PRN (08:32)
[2020-04-09] MEDS: Insulin Glarg,Human.Rec.Analog 100 Unit/ML SUBCUT SCH (08:33)
[2020-04-09] MEDS ORDERED: QUEtiapine 25 MG Tab PO SCH (09:00)
[2020-04-09] MEDS: Zinc Sulfate 220 MG Cap PO SCH (10:03)
[2020-04-09] MEDS: Aspirin 81 MG Tab.EC PO SCH (10:03)
[2020-04-09] MEDS: Metoprolol Succinate 25 MG Tab.ER PO SCH (10:04)
[2020-04-09] MEDS: Pregabalin 25 MG Cap PO SCH ×2 (10:04→20:59)
[2020-04-09] MEDS: Dexamethasone 4 MG Tab PO SCH (10:04)
[2020-04-09] MEDS: Hydrochlorothiazide 12.5 MG Cap PO SCH (10:04)
[2020-04-09] MEDS: Losartan 25 MG Tab PO SCH (10:05)
[2020-04-09] MEDS: Docusate Sodium 100 MG Cap PO SCH ×2 (10:06→20:58)
[2020-04-09] MEDS: cefTRIAXone 2 GM in Sodium Chloride 0.9% 100 ML IV SCH (15:35)
[2020-04-09] MEDS: REMDESIVIR 100 MG in Sodium Chloride 0.9% 100 ML IV SCH (17:34)
[2020-04-09] MEDS: Simvastatin 40 MG Tab PO SCH (20:58)
[2020-04-10] MEDS: Enoxaparin 30 MG/0.3 ML Syringe SUBCUT SCH (06:48)
[2020-04-10] MEDS: Levothyroxine 50 MCG Tab PO SCH (06:48)
[2020-04-10] MEDS: Pantoprazole 40 MG Tab.CR PO SCH (06:49)
[2020-04-10] MEDS: Insulin Lispro 100 Units/ML 3 ML Vial SUBCUT SCH ×2 (06:49→13:15)
[2020-04-10] MEDS: Formoterol/Mometasone 200-5 MCG 8.8 GM Inhaler IH SCH (08:19)
[2020-04-10] MEDS: Losartan 25 MG Tab PO SCH (09:32)
[2020-04-10] MEDS: Pregabalin 25 MG Cap PO SCH (09:32)
[2020-04-10] MEDS: Docusate Sodium 100 MG Cap PO SCH (09:32)
[2020-04-10] MEDS: Dexamethasone 4 MG Tab PO SCH (09:33)
[2020-04-10] MEDS: Hydrochlorothiazide 12.5 MG Cap PO SCH (09:34)
[2020-04-10] MEDS: Aspirin 81 MG Tab.EC PO SCH (09:34)
[2020-04-10] MEDS: Zinc Sulfate 220 MG Cap PO SCH (09:34)
[2020-04-10] MEDS: Metoprolol Succinate 25 MG Tab.ER PO SCH (09:34)
[2020-04-10 09:35] VITALS: PULSE 57
[2020-04-10 12:26] VITALS: BP 127/64
--- NOTE | 2020-04-10 12:47 | CR ---
PROCEDURE INFORMATION: Exam: XR Chest, 1 View Exam date and time: 04/09/2020 7:34 AM Age: 85 years old Clinical indication: Condition or disease; Other: Covid-19 positive TECHNIQUE: Imaging protocol: XR of the chest Views: 1 view. COMPARISON: OT Chest 1V Frontal 04/05/2020 1:18 PM FINDINGS: Lungs: Multifocal peripheral airspace opacity is present with nodular character. This is slightly increased in the periphery of the left lung when compared to the previous examination. Findings are compatible with progression of the patient's COVID-19 infection. Pleural space: Unremarkable. No pleural effusion. No pneumothorax. Heart/Mediastinum: Heart size is mildly prominent. Bones/joints: Unremarkable. IMPRESSION: Mild progression in multilobar pneumonia. Thank you for allowing us to participate in the care of your patient. Dictated and Authenticated by: Nick Tinsley MD 04/09/2020 10:12 AM Central Time ([place] & [place]) [facility]
--- NOTE | 2020-04-10 13:19 | PCM.DCSUM1 ---
Discharge Summary - Hospital Course HPI Initial Comments: 85-year-old female presents to the ED not feeling well for the last 3 or 4 days. She is orthopneic and cannot lay flat for the last 2 nights. She is slept on the couch propped up with pillows or in her easy chair. O2 sats at the time presentation were 87%. She admits to cold sweats chills but no defined fever. Mild nasal congestion. She has maintained sense of taste and smell. Has developed a paroxysmal minimally productive cough over the last 48 hours. Diarrhea stool x3 this morning. Loss of appetite. Complains of thirst and dyspnea and weakness. She lives in her own apartment. She has no known exposure to COVID-19 illness. Diagnosis: Stroke: No - Discharge Data Discharge Date: 04/10/20 (Admit date: 04/05/20) Discharge Disposition: Home, W Home Health Agency 06 Condition: Good - Referral to Home Health Date of Face to Face Encounter: 04/10/20 Reason for Homebound Status: Face to Face meeting with pt and or family. Pt has the following diagnosis; Hypoxia COVID 19, Pneumonia due to COVID 19 Virus, also see discharge summary for additional diagnosis. Pt needs Home Health Care nursing services for; skilled assessment, vital signs, disease education/management, and medication education. Physical therapy for gait training, Transfer training, Neuromuscular reeducation, Therapeutic exercises. Pt is currently homebound related decreased activity tolerance, decreased level of endurance. Pt will be followed by his primary provider Dr. Banks. Primary Care Physician: Angelito Banks MD Skilled Need: Face to Face meeting with pt and or family. Pt has the following diagnosis; Hypoxia COVID 19, Pneumonia due to COVID 19 Virus, also see discharge summary for additional diagnosis. Pt needs Home Health Care nursing services for; skilled assessment, vital signs, disease education/management, and medicati on education. Physical therapy for gait training, Transfer training, Neuromuscular reeducation, Therapeutic exercises. Pt is currently homebound related decreased activity tolerance, decreased level of endurance. Pt will be followed by his primary provider Dr. Banks. - Discharge Diagnosis/Problem(s) (1) Pneumonia due to 2019 novel coronavirus SNOMED Code(s): 430862767301047471 ICD Code: U07.1 - COVID-19; J12.89 - OTHER VIRAL PNEUMONIA Status: Acute Current Visit: Yes (2) Hypoxia SNOMED Code(s): 496347941 ICD Code: R09.02 - HYPOXEMIA Status: Acute Current Visit: Yes - Patient Summary/Data Consults: Consultations 04/05/20 14:50 Consult to Case Management/Rn Intake [CONS] Routine Consult to Cardroom Manager [CONS] Routine Consult to Spiritual Care [CONS] Routine OT Evaluation and Treatment [CONS] Routine PT Evaluation and Treatment [CONS] Routine Respiratory Care Assess and Treatment [CONS] Routine Hospital Course: 04/05/20 * 85-year-old female with gradual onset of generalized malaise and not feeling well that started about 4 days ago. She states she developed a cough about 2 days ago. * Denies any known exposure to Covid. * O2 saturations when presenting to the emergency department were 87% on room air * Has had decreased appetite but still has her taste and smell. * Diarrhea that started today * Initial labs in the emergency department reveal a temp of 36.2 Celsius, pulse 72, respiratory rate 22, blood pressure 143/64, O2 sats are 97% on 2 L of oxygen per nasal cannula * Initial ABGs reveal a pH of 7.44, PCO2 of 32.9, and a PO2 of 58 on room air sats of 89.5% on room air. * Portable chest x-ray reveals nonspecific bibasilar consolidation consistent with atelectasis edema or viral pneumonia. Pleural space unremarkable no effusion no pneumothorax. No cardiomegaly. Vasculature demonstrates diffuse mild atherosclerotic calcification. * Labs reveal WBC is 10.0 with 90.2% neutrophils on the auto differential. Hemoglobin is 12.2 with a hematocrit of 37.2. MCV is normal at 93.9. Platelet count of 313, D-dimer 1.47, BUN is 14, creatinine 0.9, GFR 59, lactic acid is 1.1, mag is 2.1, serum ferritin is 543, LDH 363, troponin I is less than 0.017, CRP 23.4, BNP 998, COVID-19 is positive. PLAN: * Continue on Rocephin 2 g IV every 24 hours x5 days. * Remdesivir 200 mg x 1 dose followed by 100 mg every 24 hours for total of 5 doses * Dexamethasone 6 mg daily x10 days * Lovenox for DVT prophylaxis. * Patient is a full code. * RT following * Incentive spirometer and flutter valve every 1 hour while awake. * Vital signs every 4 hours * Strict intake and output and daily weight * PT/OT to eval and treat * procurement services manager and case management for discharge planning * Dietitian to consult regarding caloric needs * Pastoral care * Albuterol nebulizer every 2 hours as needed for dyspnea or wheezing. * Length of stay greater than 96 hours due to the treatment of Covid 04/06/2020 * Stable on 2 L nasal cannula. * On Rocephin, remdesivir, and dexamethasone. * Allergy to Zithromax. * Appetite is only marginal. * D-dimer 1.17, CRP 9.7, albumin 2.6, white count 5.17 * GFR 59 and creatinine of 0.9 04/07/20 * Continues on oxygen at 2 L per nasal cannula * States she feels well other than coughing with deep breathing * Needs encouragement to use incentive spirometer and flutter valve * Appetite is fair * Labs reveal: WBC 9.99, D-dimer 1.61, BUN 21, creatinine 0.9, GFR 59, blood glucose range 91-176, C-reactive protein 11.7, proBNP 1230 * Continues on Rocephin, remdesivir, and dexamethasone. PLAN 04/07/20 * Will start low-dose sliding scale insulin with Humalog insulin 4 times daily before meals and at bedtime. * Will order hemoglobin A1c * Continue to strongly encourage the use of incentive spirometer and flutter valve * Lovenox for DVT prophylaxis. * PT OT to eval and treat * Respiratory therapy to continue titrating oxygen for sats 88 to 94% * procurement services manager for discharge planning patient will likely be here through the weekend. 04/08/20 * Continue current treatment * Encourage to Use IS abd FV as directed * Ambulate inside her room as much as she can * Rocephin 3/5, Dexamethasone 4/10, remdesivir 2/4, and Lovenox 30 units subQ BID * Completed Azithromycin * Change ISS to moderate intensity and start her on Lantus 5 units Sub BID * Stool softener and laxative for constipation * Anticipate discharge > 96 hrs to complete covid-19 treatment regimen * Prognosis is good 04/09/20 * She is doing relatively well * Rocephin 4/5, Dexamethasone 5/10, remdesivir 3/4, and Lovenox 30 units subQ BID * Encourage to Use IS abd FV as directed * Ambulate inside her room as much as she can * Change ISS to moderate intensity and start her on Lantus 5 units Sub BID * Stool softener and laxative for constipation * LOS/Discharge > 96 hrs to complete covid-19 treatment regimen * Need PT/OT to re-assess her prior to discharge * Prognosis remains good 04/10/20 * Is ready for discharge to home * She is on room air * She has received Rocephin 2 g IV daily x5 days, remdesivir x5 days, and dexamethasone 6 mg p.o. daily x6 days. * She will complete the 10-day course of dexamethasone at home and I have sent prescription to her pharmacy for this. * Continue to use incentive spirometer and flutter valve at home * Home health care and physical therapy to continue working with the patient * Follow-up with Dr. Chou in 1 week. - Patient Instructions Diet: Regular Diet as Tolerated Activity: As Tolerated Other/Special Instructions: May discharge to home with home health care services and physical therapy. Continue taking dexamethasone 6 mg daily for another 5 days. Resume all previous home medications. Continue using incentive spirometer and flutter valve every 1 hour while awake. Follow-up with Dr. Banks in 1 week. Should you have increasing shortness of breath or your condition worsens or changes, follow-up with Dr. Chou or return to the emergency department - Discharge Plan *PRESCRIPTION DRUG MONITORING PROGRAM REVIEWED*: Not Applicable *COPY OF PRESCRIPTION DRUG MONITORING REPORT IN PATIENT BLADIMIR: Not Applicable Prescriptions/Med Rec: dexAMETHasone [Dexamethasone] 6 mg PO DAILY #8 tablet Home Medications: Home Meds Aspirin 81 mg PO DAILY 06/30/15 [History] Losartan [Cozaar] 50 mg PO DAILY 06/30/15 [History] Simvastatin [Zocor] 40 mg PO BEDTIME 06/30/15 [History] Albuterol Sulfate [Proair Respiclick] 2 puff IH Q4H PRN 10/13/17 [History] Docusate Sodium 100 mg PO BID 10/13/17 [History] Esomeprazole [NexIUM] 40 mg PO DAILY 10/13/17 [History] Fluticasone Propion/Salmeterol [Advair 250-50 Diskus] 1 puff IH BID 10/13/17 [History] Levothyroxine [Synthroid] 50 mcg PO DAILY 10/13/17 [History] Meloxicam 7.5 mg PO DAILY 10/13/17 [History] Potassium Chloride 10 meq PO BID 10/13/17 [History] hydroCHLOROthiazide [Hydrochlorothiazide] 12.5 mg PO DAILY 10/13/17 [History] Diclofenac Sodium [Voltaren 1% Gel] 2 g TOP QID PRN 04/05/20 [History] Metoprolol Succinate 25 mg PO DAILY 04/05/20 [History] Multivitamin [Multivitamins] 1 cap PO DAILY 04/05/20 [History] Pregabalin 25 mg PO DAILY 04/05/20 [History] Pregabalin [Lyrica] 50 mg PO BEDTIME 04/05/20 [History] polyethylene glycoL 3350 [MiraLAX] 17 packet PO DAILY PRN 04/05/20 [History] dexAMETHasone [Dexamethasone] 6 mg PO DAILY #8 tablet 04/10/20 [Rx] Oxygen Therapy Mode: Room Air Patient Handouts: COVID-19, Heart Failure, Self Care, Sepsis, Diagnosis, Adult, COVID-19: How to Protect Yourself and Others - CDC, Living With Heart Failure Forms: ED Department Discharge Referrals: Angelito Banks MD [Primary Care Provider] - 04/17/20 10:30 am - Discharge Summary/Plan Comment DC Time >30 min.: No - General Info Date of Service: 04/10/20 Admission Dx/Problem (Free Text: Admission Diagnosis/Problem Admission Diagnosis/Problem Hypoxia Functional Status: Reports: Pain Controlled, Tolerating Diet, Ambulating, Urinating, Incentive Spirometry - Review of Systems General: Reports: No Symptoms HEENT: Reports: Glasses Pulmonary: Reports: Cough. Denies: Sputum Cardiovascular: Reports: No Symptoms Gastrointestinal: Reports: No Symptoms Genitourinary: Reports: No Symptoms Musculoskeletal: Reports: No Symptoms Skin: Reports: No Symptoms Neurological: Reports: No Symptoms Psychiatric: Reports: No Symptoms - Patient Data Vitals - Most Recent: Last Vital Signs Temp 97.7 F 04/10/20 11:58 Pulse 57 L 04/10/20 11:58 Resp 16 04/10/20 11:58 BP 127/64 04/10/20 11:58 Pulse Ox 93 L 04/10/20 11:58 Weight - Most Recent: 155 lb 14.4 oz I&O - Last 24 hours: Intake & Output 04/09/20 04/10/20 04/10/20 22:59 06:59 14:59 Intake Total 615 375 90 Output Total 600 650 Balance 15 -275 90 Lab Results - Last 24 hrs: Laboratory Results - last 24 hr 04/09/20 04/10/20 04/10/20 Range/Units 17:23 05:03 05:03 WBC 9.47 (3.98-10.04) K/mm3 RBC 3.61 L (3.98-5.22) M/mm3 Hgb 11.3 (11.2-15.7) gm/dl Hct 33.5 L (34.1-44.9) % MCV 92.8 (79.4-94.8) fl MCH 31.3 (25.6-32.2) pg MCHC 33.7 (32.2-35.5) g/dl RDW Std Deviation 44.4 (36.4-46.3) fL Plt Count 415 H (182-369) K/mm3 MPV 9.3 L (9.4-12.3) fl Neut % (Auto) 84.8 H (34.0-71.1) % Lymph % (Auto) 7.8 L (19.3-51.7) % Tate % (Auto) 7.3 (4.7-12.5) % Eos % (Auto) 0 L (0.7-5.8) Baso % (Auto) 0.1 (0.1-1.2) % Neut # (Auto) 8.03 H (1.56-6.13) K/mm3 Lymph # (Auto) 0.74 L (1.18-3.74) K/mm3 Tate # (Auto) 0.69 H (0.24-0.36) K/mm3 Eos # (Auto) 0.00 L (0.04-0.36) K/mm3 Baso # (Auto) 0.01 (0.01-0.08) K/mm3 Manual Slide Review Abnormal smear D-Dimer, Quantitative 1.30 H (0.19-0.50) mg/L Sodium (136-145) mEq/L Potassium (3.5-5.1) mEq/L Chloride (98-107) mEq/L Carbon Dioxide (21-32) mEq/L Anion Gap (5-15) BUN (7-18) mg/dL Creatinine (0.55-1.02) mg/dL Est Cr Clr Drug Dosing mL/min Estimated GFR (MDRD) (>60) mL/min BUN/Creatinine Ratio (14-18) Glucose (83-115) mg/dL POC Glucose 199 H (83-110) mg/dL Calcium (8.5-10.1) mg/dL Phosphorus (2.6-4.7) mg/dL Magnesium (1.8-2.4) mg/dl Total Bilirubin (0.2-1.0) mg/dL AST (15-37) U/L ALT (14-59) U/L Alkaline Phosphatase (46-116) U/L C-Reactive Protein (<1.0) mg/dL NT-Pro-B Natriuret Pep (0-450) pg/mL Total Protein (6.4-8.2) g/dl Albumin (3.4-5.0) g/dl Globulin gm/dL Albumin/Globulin Ratio (1-2) 04/10/20 04/10/20 04/10/20 Range/Units 05:03 05:03 06:48 WBC (3.98-10.04) K/mm3 RBC (3.98-5.22) M/mm3 Hgb (11.2-15.7) gm/dl Hct (34.1-44.9) % MCV (79.4-94.8) fl MCH (25.6-32.2) pg MCHC (32.2-35.5) g/dl RDW Std Deviation (36.4-46.3) fL Plt Count (182-369) K/mm3 MPV (9.4-12.3) fl Neut % (Auto) (34.0-71.1) % Lymph % (Auto) (19.3-51.7) % Tate % (Auto) (4.7-12.5) % Eos % (Auto) (0.7-5.8) Baso % (Auto) (0.1-1.2) % Neut # (Auto) (1.56-6.13) K/mm3 Lymph # (Auto) (1.18-3.74) K/mm3 Tate # (Auto) (0.24-0.36) K/mm3 Eos # (Auto) (0.04-0.36) K/mm3 Baso # (Auto) (0.01-0.08) K/mm3 Manual Slide Review D-Dimer, Quantitative (0.19-0.50) mg/L Sodium 138 (136-145) mEq/L Potassium 3.8 (3.5-5.1) mEq/L Chloride 103 (98-107) mEq/L Carbon Dioxide 24 (21-32) mEq/L Anion Gap 14.8 (5-15) BUN 26 H (7-18) mg/dL Creatinine 0.9 (0.55-1.02) mg/dL Est Cr Clr Drug Dosing 33.86 mL/min Estimated GFR (MDRD) 59 (>60) mL/min BUN/Creatinine Ratio 28.9 H (14-18) Glucose 128 H (83-115) mg/dL POC Glucose 115 H (83-110) mg/dL Calcium 8.6 (8.5-10.1) mg/dL Phosphorus 3.1 (2.6-4.7) mg/dL Magnesium 1.8 (1.8-2.4) mg/dl Total Bilirubin 0.2 (0.2-1.0) mg/dL AST 23 (15-37) U/L ALT 28 (14-59) U/L Alkaline Phosphatase 64 (46-116) U/L C-Reactive Protein 3.8 H* (<1.0) mg/dL NT-Pro-B Natriuret Pep 914 H (0-450) pg/mL Total Protein 5.7 L (6.4-8.2) g/dl Albumin 2.0 L (3.4-5.0) g/dl Globulin 3.7 gm/dL Albumin/Globulin Ratio 0.5 L (1-2) 04/10/ Range/Units 11:55 WBC (3.98-10.04) K/mm3 RBC (3.98-5.22) M/mm3 Hgb (11.2-15.7) gm/dl Hct (34.1-44.9) % MCV (79.4-94.8) fl MCH (25.6-32.2) pg MCHC (32.2-35.5) g/dl RDW Std Deviation (36.4-46.3) fL Plt Count (182-369) K/mm3 MPV (9.4-12.3) fl Neut % (Auto) (34.0-71.1) % Lymph % (Auto) (19.3-51.7) % Tate % (Auto) (4.7-12.5) % Eos % (Auto) (0.7-5.8) Baso % (Auto) (0.1-1.2) % Neut # (Auto) (1.56-6.13) K/mm3 Lymph # (Auto) (1.18-3.74) K/mm3 Tate # (Auto) (0.24-0.36) K/mm3 Eos # (Auto) (0.04-0.36) K/mm3 Baso # (Auto) (0.01-0.08) K/mm3 Manual Slide Review D-Dimer, Quantitative (0.19-0.50) mg/L Sodium (136-145) mEq/L Potassium (3.5-5.1) mEq/L Chloride (98-107) mEq/L Carbon Dioxide (21-32) mEq/L Anion Gap (5-15) BUN (7-18) mg/dL Creatinine (0.55-1.02) mg/dL Est Cr Clr Drug Dosing mL/min Estimated GFR (MDRD) (>60) mL/min BUN/Creatinine Ratio (14-18) Glucose (83-115) mg/dL POC Glucose 117 H (83-110) mg/dL Calcium (8.5-10.1) mg/dL Phosphorus (2.6-4.7) mg/dL Magnesium (1.8-2.4) mg/dl Total Bilirubin (0.2-1.0) mg/dL AST (15-37) U/L ALT (14-59) U/L Alkaline Phosphatase (46-116) U/L C-Reactive Protein (<1.0) mg/dL NT-Pro-B Natriuret Pep (0-450) pg/mL Total Protein (6.4-8.2) g/dl Albumin (3.4-5.0) g/dl Globulin gm/dL Albumin/Globulin Ratio (1-2) FLIP Results - Last 24 hrs: Microbiology 04/05/20 12:55 Aerobic Blood Culture - Preliminary Blood - Venous NO GROWTH AFTER 5 DAYS Anaerobic Blood Culture - Preliminary NO GROWTH AFTER 5 DAYS 04/05/20 13:12 Aerobic Blood Culture - Preliminary Blood - Venous - Lab Draw NO GROWTH AFTER 5 DAYS Anaerobic Blood Culture - Preliminary NO GROWTH AFTER 5 DAYS Med Orders - Current: Current Medications Acetaminophen (Tylenol) 650 mg PO Q4H PRN PRN Reason: Pain (Mild 1-3)/fever Albuterol (Proventil Neb Soln) 2.5 mg NEB Q2H PRN PRN Reason: Dyspnea Albuterol (Proventil Hfa) 0 gm INH Q4H PRN PRN Reason: Shortness of Breath Aspirin (Halfprin) 81 mg PO DAILY [facility] Last Admin: 04/10/20 09:34 Dose: 81 mg Documented by: Dexamethasone (Dexamethasone) 6 mg PO DAILY [facility] Stop: 04/14/20 09:01 Last Admin: 04/10/20 09:33 Dose: 6 mg Documented by: Diclofenac Sodium (Voltaren 1% Gel) 2 gm TOP QID PRN PRN Reason: Pain Docusate Sodium (Colace) 100 mg PO BID PRN PRN Reason: Constipation Docusate Sodium (Colace) 100 mg PO BID [facility] Last Admin: 04/10/20 09:32 Dose: 100 mg Documented by: Enoxaparin Sodium (Lovenox) 30 mg SUBCUT Q12H [facility] Last Admin: 04/10/20 06:48 Dose: 30 mg Documented by: Hydrochlorothiazide (Hydrochlorothiazide) 12.5 mg PO DAILY [facility] Last Admin: 04/10/20 09:34 Dose: 12.5 mg Documented by: Insulin Human Lispro (Humalog) 0 unit SUBCUT TIDAC [facility]; Protocol Last Admin: 04/10/20 13:15 Dose: Not Given Documented by: Levothyroxine Sodium (Synthroid) 50 mcg PO ACBRK [facility] Last Admin: 04/10/20 06:48 Dose: 50 mcg Documented by: Losartan Potassium (Cozaar) 50 mg PO DAILY [facility] Last Admin: 04/10/20 09:32 Dose: 50 mg Documented by: Metoprolol Succinate (Toprol Xl) 25 mg PO DAILY [facility] Last Admin: 04/10/20 09:34 Dose: 25 mg Documented by: Mometasone Furoate/Formoterol Fumar (Dulera 200-5 Mcg) 2 puff IH BID [facility] Last Admin: 04/10/20 08:19 Dose: 2 puff Documented by: Ondansetron HCl (Zofran) 4 mg IV Q4H PRN PRN Reason: Nausea/Vomiting Pantoprazole Sodium (Protonix) 40 mg PO ACBRK [facility] Last Admin: 04/10/20 06:49 Dose: 40 mg Documented by: Polyethylene Glycol (Miralax) 17 gm PO DAILY PRN PRN Reason: Constipation Pregabalin (Lyrica) 50 mg PO BEDTIME [facility] Last Admin: 04/09/20 20:59 Dose: Not Given Documented by: Pregabalin (Lyrica) 25 mg PO DAILY [facility] Last Admin: 04/10/20 09:32 Dose: 25 mg Documented by: Simvastatin (Zocor) 40 mg PO BEDTIME [facility] Last Admin: 04/09/20 20:58 Dose: 40 mg Documented by: Sodium Chloride (Saline Flush) 10 ml FLUSH ASDIRECTED PRN PRN Reason: Keep Vein Open Zinc Sulfate (Zincate) 220 mg PO DAILY [facility] Last Admin: 04/10/20 09:34 Dose: 220 mg Documented by: Discontinued Medications Bisacodyl (Dulcolax) 10 mg RECTAL ONETIME ONE Stop: 04/08/20 14:59 Last Admin: 04/08/20 16:01 Dose: 10 mg Documented by: Carvedilol (Coreg) 6.25 mg PO ONETIME ONE Stop: 04/08/20 21:52 Last Admin: 04/08/20 23:01 Dose: Not Given Documented by: Carvedilol (Coreg) 6.25 mg PO BIDMEALS [facility] Diphenhydramine HCl (Benadryl) 25 mg IVPUSH ONCALL ONE Stop: 04/05/20 18:16 Last Admin: 04/05/20 18:19 Dose: 25 mg Documented by: Enoxaparin Sodium (Lovenox) 30 mg SUBCUT Q12H [facility] Last Admin: 04/07/20 14:31 Dose: 30 mg Documented by: Dextrose/Sodium Chloride (Dextrose 5%-Normal Saline) 1,000 mls @ 100 mls/hr IV ASDIRECTED [facility] Last Admin: 04/05/20 13:06 Dose: 100 mls/hr Documented by: Remdesivir 200 mg/ Sodium (Chloride) 250 mls @ 250 mls/hr IV ONETIME ONE Stop: 04/05/20 16:59 Last Admin: 04/05/20 16:28 Dose: 250 mls/hr Documented by: Ceftriaxone Sodium 2 gm/ (Sodium Chloride) 100 mls @ 200 mls/hr IV Q24H [facility] Stop: 04/09/20 15:44 Last Admin: 04/09/20 15:35 Dose: 200 mls/hr Documented by: Remdesivir 100 mg/ Sodium (Chloride) 100 mls @ 100 mls/hr IV Q24H [facility] Stop: 04/09/20 16:59 Last Admin: 04/09/20 17:34 Dose: 100 mls/hr Documented by: Sodium Chloride (Normal Saline) 250 mls @ 75 mls/hr IV ASDIRECTED [facility] Insulin Glargine (Lantus) 5 unit SUBCUT BIDAC [facility] Last Admin: 04/09/20 08:33 Dose: Not Given Documented by: Insulin Human Lispro (Humalog) 0 unit SUBCUT QIDACANDBED [facility]; Protocol Last Admin: 04/09/20 07:45 Dose: Not Given Documented by: Insulin Human Lispro (Humalog) 0 unit SUBCUT TIDPC PRN; Protocol PRN Reason: Hyperglycemia Magnesium Hydroxide (Milk Of Magnesia) 30 ml PO ONETIME ONE Stop: 04/08/20 14:58 Last Admin: 04/08/20 16:01 Dose: 30 ml Documented by: Pantoprazole Sodium (Protonix) 40 mg PO DAILY ONE Stop: 04/06/20 13:59 Last Admin: 04/06/20 14:55 Dose: 40 mg Documented by: Quetiapine Fumarate (Seroquel) 12.5 mg PO ONETIME ONE Stop: 04/08/20 21:52 Last Admin: 04/08/20 23:01 Dose: Not Given Documented by: - Exam Quality Assessment: Reports: DVT Prophylaxis (Lovenox). Denies: Supplemental Oxygen General: Reports: Alert, Oriented, Cooperative, No Acute Distress HEENT: Reports: Pupils Equal, Pupils Reactive, Mucous Membr. Moist/[place] Neck: Reports: Supple, Trachea Midline, Lymphadenopathy Lungs: Reports: Crackles Cardiovascular: Reports: Regular Rate, Regular Rhythm, No Murmurs GI/Abdominal Exam: Normal Bowel Sounds, Soft, Non-Tender, No Distention (Female) Exam: Deferred Rectal (Female) Exam: Deferred Back Exam: Reports: Normal Inspection, Full Range of Motion Extremities: Normal Inspection, Normal Range of Motion, Non-Tender, No Pedal Edema, Normal Capillary Refill Skin: Reports: Warm, Dry, Intact Neurological: Reports: No New Focal Deficit Psy/Mental Status: Reports: Alert, Normal Affect, Normal Mood
[2020-04-11] MEDS: Formoterol/Mometasone 200-5 MCG 8.8 GM Inhaler IH SCH (04:19)
== END 2020-04-10 15:07 | disposition home health service (06) | DRG 177 ==
LOC: JD.ED 11:49 → UNDOADMIN 14:14 → JD.MS 14:14
PROVIDERS: ADMIT Pediatrics; ATTEND Pediatrics
PROC: XW033E5 Introduction of Remdesivir Anti-infective into Peripheral Vein, Percutaneous Approach, New Technology Group 5 (ICD-10-PCS; principal; 2020-04-05)
PROC: XW13325 Transfusion of Convalescent Plasma (Nonautologous) into Peripheral Vein, Percutaneous Approach, New Technology Group 5 (ICD-10-PCS; 2020-04-05)
PROC: 8E0ZXY6 Isolation (ICD-10-PCS; 2020-04-05)
DX: U07.1 COVID-19 (principal); J12.9 Viral pneumonia, unspecified; H91.90 Unspecified hearing loss, unspecified ear; E78.00 Pure hypercholesterolemia, unspecified; K21.9 Gastro-esophageal reflux disease without esophagitis; K59.09 Other constipation; R32 Unspecified urinary incontinence; N32.81 Overactive bladder; E03.9 Hypothyroidism, unspecified; M81.0 Age-related osteoporosis without current pathological fracture; L57.0 Actinic keratosis; D64.9 Anemia, unspecified; D47.3 Essential (hemorrhagic) thrombocythemia; I10 Essential (primary) hypertension; E78.5 Hyperlipidemia, unspecified; G62.9 Polyneuropathy, unspecified; J45.909 Unspecified asthma, uncomplicated; E88.09 Other disorders of plasma-protein metabolism, not elsewhere classified; E66.3 Overweight; Z79.82 Long term (current) use of aspirin; Z79.899 Other long term (current) drug therapy; Z88.1 Allergy status to other antibiotic agents; Z88.2 Allergy status to sulfonamides; Z91.040 Latex allergy status; Z79.890 Hormone replacement therapy; Z86.711 Personal history of pulmonary embolism; Z79.01 Long term (current) use of anticoagulants; Z85.038 Personal history of other malignant neoplasm of large intestine; Z98.49 Cataract extraction status, unspecified eye; Z87.891 Personal history of nicotine dependence
CPT/HCPCS: 36415; 36430; 36600; 71045; 71045-26; 80053; 81001; 82728; 82803; 82962; 83036; 83605; 83615; 83735; 83880; 84100; 84145; 84484; 85025; 85379; 85610; 85730; 86140; 86900; 86901; 87040; 93005; 93010; 94640; 94667; 94668; 94761; 94762; 97110-GP; 97116-GP; 97162-GP; 97165-GO; 97535-GO; 99222; 99231; 99232; 99238; 99285; 99285-25; A9270-GY; J0696; J1200; J1650; J1815-GY; J7042; J7050; J8540; P9017; U0002

== ENCOUNTER 2022-04-29 19:10 | Emergency (ER) | payer MEDICARE, BC ==
[2022-04-29 19:58] VITALS: BP 193/73; PULSE 65
[2022-04-29] MEDS ORDERED: Sodium Chloride 0.9% 10 ML Syringe FLUSH PRN (20:08)
[2022-04-29] MEDS ORDERED: Ondansetron 4 MG/2 ML SDV IVPUSH ONE (20:10)
[2022-04-29] MEDS ORDERED: Sodium Chloride 0.9% 1,000 ML IV SCH (20:15)
[2022-04-29 20:55] LABS: CORONAVIRUS COVID-19 NAA NEGATIVE (NEGATIVE)
== END 2022-04-29 23:00 | disposition home or self-care (01) ==
LOC: JD.ED 19:10
DX: R55 Syncope and collapse (principal); E78.00 Pure hypercholesterolemia, unspecified; I10 Essential (primary) hypertension; K21.9 Gastro-esophageal reflux disease without esophagitis; Z88.1 Allergy status to other antibiotic agents; Z91.040 Latex allergy status; Z88.2 Allergy status to sulfonamides; Z79.82 Long term (current) use of aspirin; Z79.899 Other long term (current) drug therapy; Z20.822 Contact with and (suspected) exposure to COVID-19
CPT/HCPCS: 0241U; 36415; 70450; 71045; 80053; 81003; 84484; 85025; 86140; 93005; 96361; 96374; 99284; J2405; J3490; J7030

== ENCOUNTER 2023-07-21 06:00 | Day surgery (SDC) | payer BC, MEDICARE ==
[~2023-07-21 06:00] MED LIST changes: -Lactated Ringers 1,000 ML IV SCH; -Lidocaine 0.5% 50 ML SDV ONE; -Lidocaine 1%/Sod Bicarbonate in NS 8.4% 1 ML Syringe IDERM PRN; -Propofol 200 MG/20 ML SDV ONE; -Sodium Bicarbonate 8.4% 50 MEQ/50 ML SDV ONE; +Sodium Chloride 0.9% 10 ML Syringe FLUSH SCH; -fentaNYL 100 MCG/2 ML SDV ONE
[2023-07-21] MEDS: Lactated Ringers 1,000 ML IV SCH (06:10)
[2023-07-21] MEDS ORDERED: Lidocaine 1% 4 ML ONE (06:38)
[2023-07-21] MEDS ORDERED: Propofol 200 MG/20 ML SDV ONE (06:38)
[2023-07-21] MEDS ORDERED: Lidocaine 0.5% 50 ML SDV ONE (06:40)
[2023-07-21] MEDS ORDERED: Sodium Bicarbonate 8.4% 50 MEQ/50 ML SDV ONE (06:40)
[2023-07-21] MEDS ORDERED: ceFAZolin 2 GM Vial ONE (06:54)
[2023-07-21] MEDS: Bupivacaine 0.25% 10 ML SDV ONE (07:01)
[2023-07-21] MEDS: Lidocaine 1% 10 ML MDV ONE (07:01)
[2023-07-21 08:16] VITALS: BP 123/60; PULSE 77
== END 2023-07-21 08:05 | disposition home or self-care (01) ==
LOC: JD.SDS 06:00
PROVIDERS: ATTEND Orthopaedic Surgery
DX: G56.02 Carpal tunnel syndrome, left upper limb (principal); I10 Essential (primary) hypertension; K21.9 Gastro-esophageal reflux disease without esophagitis; K44.9 Diaphragmatic hernia without obstruction or gangrene; J45.909 Unspecified asthma, uncomplicated; E78.00 Pure hypercholesterolemia, unspecified; Z87.891 Personal history of nicotine dependence; Z91.048 Other nonmedicinal substance allergy status; Z88.1 Allergy status to other antibiotic agents; Z79.899 Other long term (current) drug therapy; Z88.2 Allergy status to sulfonamides
CPT/HCPCS: 64721; J0690; J2704; J3490; J7120; 01810; 99100